=== PATIENT | female | born 1935 | race Caucasian/White ===

== ENCOUNTER 2016-12-03 10:36 | Emergency (ER) | payer MEDICARE, OTHER ==
[~2016-12-03] VITALS: Ht 154.9 cm; Wt 96.5 kg
[~2016-12-03 10:36] MED LIST: CART120C2 PO; CARV3.125 PO; COUM10TA PO; CYCL1PAK PO; ISOS40TA4 PO; LISI-363 PO; MAGN400T PO; NEUR300C PO; NYST100024 TOP; OMPR20CCR PO; ST JTAB PO; TRAZ100 PO; ZOLO50TA PO
[2016-12-03 10:59] VITALS: BP 141/67; PULSE 67; RESP 16; TEMP 97.8; O2SAT 97
[2016-12-03 11:15] VITALS: BP 130/61; PULSE 69; RESP 16; O2SAT 94
--- NOTE | 2016-12-03 11:19 | PD ---
HPI Chief Complaint: Complaint Time Seen by Provider: 11:02 Travel History International Travel<30 days: No Contact w/Intl Traveler<30days: No Traveled to known affect area: No History of Present Illness HPI This patient takes Coumadin for history of A. fib. She noticed blood in her urine 2 days ago. She does have some dysuria. Severity is mild to moderate. She also has some fatigue and low energy state. No fever or syncope. Symptoms have no alleviating factors. PFSH Past Medical History Hx Anticoagulant Therapy: Yes (COUMADIN) Arthritis: Yes (both shoulders and arms, neck) Asthma: Yes Anxiety: Yes Depression: Yes Heart Rhythm Problems: Yes (hx AFib) Cardiovascular Problems: Yes (HTN, A-FIB) High Cholesterol: Yes Chemotherapy: No Chest Pain: No Congestive Heart Failure: No COPD: Yes Cerebrovascular Accident: Yes (CVA 2014) Diabetes: No Diminished Hearing: No Endocrine: Yes Gastrointestinal Disorders: Yes (chronic pancreatitis) GERD: Yes Genitourinary: No Hiatal Hernia: No Hypertension: Yes Immune Disorder: No Implanted Vascular Access Dvce: Yes Insomnia: Yes Musculoskeletal: Yes (BACK PROBLMES) Neurologic: Yes Psychiatric: Yes Reproductive: No Respiratory: Yes (COPD) Immunizations Current: Yes Pancreatitis: Yes Radiation Therapy: No Sleep Apnea: Yes (has machine but doesn't use because of freq urination) Thyroid Disease: No Ulcer: No Menopausal: Yes : 5 Para: 4 Miscarriage: 1 Past Surgical History Abdominal Surgery: Yes (callie & appe 25yrs ago) Appendectomy: Yes Cardiac Surgery: Yes (cardiac cath, LOOP RECORDER PLACED AND REMOVED) Cholecystectomy: Yes Genitourinary Surgery: Yes (BLADDER LIFT) Gynecologic Surgery: Yes (hysterectomy) Hysterectomy: Yes Joint Replacement: Yes (BILATERAL KNEES ) Neurologic Surgery: No Thoracic Surgery: No Other Surgery: Yes (JESSICA LYMPHNODES REMOVED FROM JESSICA AXILLA AREA) Social History Alcohol Use: No Tobacco Use: No (QUIT 1956) Substance Use: No Allergies-Medications (Allergen,Severity, Reaction): Coded Allergies: Flu Vaccine (Verified Allergy, Severe, 12/03/16) Adhesives (Verified Allergy, Intermediate, RASH, 12/03/16) Erythromycin (Verified Allergy, Intermediate, Rash, 12/03/16) Penicillin (Verified Allergy, Intermediate, 12/03/16) Sulfa (Verified Allergy, Intermediate, Rash, 12/03/16) *MDRO Multi-Drug Resistant Organism (Verified Adverse Reaction, Unknown, ) MRSA (abdominal wound) - 12/12/2015 Reported Meds & Prescriptions Reported Meds & Active Scripts Active Reported Warfarin 6 Mg Tab 6 Mg PO DAILY Trazodone (Trazodone HCl) 50 Mg Tab 50 Mg PO HS PRN Sertraline (Sertraline HCl) 100 Mg Tab 100 Mg PO DAILY Omeprazole 40 Mg Cap 40 Mg PO BID Magnesium 400 Mg Tab 400 Mg PO DAILY Lisinopril 20 Mg Tab 20 Mg PO DAILY Isosorbide Dinitrate 20 Mg Tab 20 Mg PO Q8HR Gabapentin 300 Mg Cap 300 Mg PO HS Diltiazem ER 12 HR (Diltiazem HCl) 120 Mg Caper 120 Mg PO BID Flexeril (Cyclobenzaprine HCl) 5 Mg Tab 5 Mg PO TID PRN Carvedilol 3.125 Mg Tab 3.125 Mg PO BID Aspirin 81 Mg Chew 81 Mg CHEW DAILY Review of Systems General / Constitutional: No: Fever Eyes: No: Visual changes HENT: No: Headaches Cardiovascular: No: Chest Pain or Discomfort Respiratory: No: Shortness of Breath Gastrointestinal: No: Abdominal Pain Genitourinary: Positive: Dysuria, Hematuria Musculoskeletal: No: Pain Skin: No Rash Neurologic: No: Weakness Psychiatric: No: Depression Endocrine: No: Polydipsia Hematologic/Lymphatic: No: Easy Bruising Physical Exam Narrative GENERAL: Well-nourished, well-developed patient in no apparent distress. SKIN: Warm and dry. HEAD: Atraumatic. Normocephalic. EYES: Pupils equal and round. No scleral icterus. No injection or drainage. ENT: No nasal bleeding or discharge. Mucous membranes pink and moist. NECK: Trachea midline. No JVD. CARDIOVASCULAR: Regular rate and rhythm. No murmur appreciated. RESPIRATORY: No accessory muscle use. Clear to auscultation. Breath sounds equal bilaterally. GASTROINTESTINAL: Abdomen soft, non-tender, nondistended. Hepatic and splenic margins not palpable. MUSCULOSKELETAL: No obvious deformities. No clubbing. No cyanosis. No edema. NEUROLOGICAL: Awake and alert. No obvious cranial nerve deficits. Motor grossly within normal limits. Normal speech. PSYCHIATRIC: Appropriate mood and affect; insight and judgment normal. Data Data Last Documented VS Vital Signs Date Time Temp Pulse Resp B/P Pulse Ox O2 Delivery O2 Flow Rate FiO2 12/03/16 11:15 69 16 130/61 94 Room Air 12/03/16 10:59 97.8 Orders Urinalysis - C+S If Indicated (12/03/16 11:10) Prothrombin Time / Inr (Pt) (12/03/16 11:10) Complete Blood Count With Diff (12/03/16 11:10) Iv Access Insert/Monitor (12/03/16 11:10) Urine Culture (12/03/16 12:40) Labs Laboratory Tests Test 12/03/16 12/03/16 11:20 12:40 White Blood Count 7.0 TH/MM3 Red Blood Count 4.32 MIL/MM3 Hemoglobin 10.9 GM/DL Hematocrit 33.0 % Mean Corpuscular Volume 76.6 FL Mean Corpuscular Hemoglobin 25.3 PG Mean Corpuscular Hemoglobin 33.0 % Concent Red Cell Distribution Width 16.4 % Platelet Count 178 TH/MM3 Mean Platelet Volume 6.7 FL Neutrophils (%) (Auto) 70.5 % Lymphocytes (%) (Auto) 18.8 % Monocytes (%) (Auto) 6.6 % Eosinophils (%) (Auto) 3.5 % Basophils (%) (Auto) 0.6 % Neutrophils # (Auto) 5.0 TH/MM3 Lymphocytes # (Auto) 1.3 TH/MM3 Monocytes # (Auto) 0.5 TH/MM3 Eosinophils # (Auto) 0.2 TH/MM3 Basophils # (Auto) 0.0 TH/MM3 CBC Comment DIFF FINAL Differential Comment Prothrombin Time 12.4 SEC Prothromb Time International 1.1 RATIO Ratio Urine Color YELLOW Urine Turbidity CLOUDY Urine pH 6.5 Urine Specific [place] 1.021 Urine Protein 30 mg/dL Urine Glucose (UA) NEG mg/dL Urine Ketones NEG mg/dL Urine Occult Blood MOD Urine Nitrite NEG Urine Bilirubin NEG Urine Urobilinogen LESS THAN 2.0 MG/DL Urine Leukocyte Esterase LARGE Urine RBC 66 /hpf Urine WBC /hpf Urine WBC Clumps MANY Urine Squamous Epithelial 1 /hpf Cells Urine Bacteria OCC /hpf Urine Yeast (Budding) Microscopic Urinalysis Comment CULTURE INDICATED MDM Medical Decision Making Medical Screen Exam Complete: Yes Emergency Medical Condition: Yes Medical Record Reviewed: Yes Differential Diagnosis Supratherapeutic INR, hematoma, UTI Narrative Course I have reviewed the patient's electronic medical record IV placed CBC shows minimal anemia INR on Coumadin is 1.1 Urinalysis shows innumerable white cells with only 66 red cells Presentation consistent with urinary tract infection. Cipro prescribed. Should follow-up with primary care to discuss subtherapeutic Coumadin levels Diagnosis Primary Impression: Urinary tract infection Qualified Code: N30.01 - Acute cystitis with hematuria Additional Impressions: History of atrial fibrillation Anticoagulated on Coumadin Additional Instructions: The patient was advised to follow up with their physician and return if they worsen. Med/Other Pt SpecificInfo: Prescription(s) given Scripts Ciprofloxacin (Cipro)500 Mg Xlm149 Mg PO BID #10 TAB Ref 0 Prov:John Bee MD 12/03/16 Disposition: 01 DISCHARGE HOME Condition: Stable John Bee MD Dec 03, 2016 11:18
[2016-12-03] MEDS ORDERED: LISI-515 PO (11:21)
[2016-12-03] MEDS ORDERED: SERT-129 PO (11:21)
[2016-12-03] MEDS ORDERED: OMEP40CA2 PO (11:21)
[2016-12-03] MEDS ORDERED: ISOS20TA2 PO (11:21)
[2016-12-03] MEDS ORDERED: CARV3.12 PO (11:21)
[2016-12-03] MEDS ORDERED: MAGN1TAB14 PO (11:21)
[2016-12-03] MEDS ORDERED: GABA300C5 PO (11:21)
[2016-12-03] MEDS ORDERED: WARF-60 PO (11:21)
[2016-12-03] MEDS ORDERED: DILT120C9 PO (11:21)
[2016-12-03] MEDS ORDERED: ASPI81CH CHEW (11:21)
[2016-12-03] MEDS ORDERED: TRAZ50TA12 PO (11:21)
[2016-12-03] MEDS ORDERED: CYCL5TAB PO (11:21)
[2016-12-03 11:47] LABS: BASOPHIL % 0.6 % (0.0-2.0); EOSINOPHIL # 0.2 TH/MM3 (0-0.4); EOSINOPHIL % 3.5 % (0.0-4.0); HEMO FLAGS DIFF FINAL; LYMPH % 18.8 % (9.0-44.0); LYMPHOCYTE # 1.3 TH/MM3 (1.0-4.8); MEAN CELL VOLUME 76.6 FL (80.0-100.0); MEAN CORPUSCULAR HEMOGLOBIN 25.3 PG (27.0-34.0); MONO % 6.6 % (0.0-8.0); NEUT % 70.5 % (16.0-70.0); PLATELET COUNT 178 TH/MM3 (150-450); RED BLOOD COUNT 4.32 MIL/MM3 (4.00-5.30); RED CELL DISTRIBUTION WIDTH 16.4 % (11.6-17.2)
[2016-12-03 11:59] LABS: INTERNATIONAL NORMALIZED RATIO 1.1 RATIO; PROTHROMBIN TIME - PATIENT 12.4 SEC (9.8-11.6)
[2016-12-03 12:00] VITALS: BP 140/71; PULSE 60; RESP 23; O2SAT 95
[2016-12-03 13:00] VITALS: BP 159/74; PULSE 64; RESP 22; O2SAT 95
[2016-12-03 13:19] LABS: BACTERIA, URINE OCC /hpf; BLOOD, URINE MOD (NEG); COMMENT (UR) CULTURE INDICATED; CULTURE IF INDICATED CULTURE INDICATED; GLUCOSE,URINE NEG (NEG); KETONE, URINE NEG (NEG); NITRITE,URINE NEG (NEG); PH, URINE 6.5 (5.0-8.5); SQUAMOUS EPITHELIAL CELL URINE 1 /hpf (0-5); URINE COLOR YELLOW (YELLW/STRAW)
[2016-12-03] MEDS ORDERED: CIPR-9 PO (14:01)
== END 2016-12-03 16:03 | disposition home or self-care (01) ==
LOC: NEPC 10:36
DX: N39.0 Urinary tract infection, site not specified (principal); B96.4 Proteus (mirabilis) (morganii) as the cause of diseases classified elsewhere; R31.9 Hematuria, unspecified; I48.91 Unspecified atrial fibrillation; Z79.01 Long term (current) use of anticoagulants; E78.00 Pure hypercholesterolemia, unspecified; J44.9 Chronic obstructive pulmonary disease, unspecified; I10 Essential (primary) hypertension
CPT/HCPCS: 81001; 85025; 85610; 87077; 87086; 87186; 99283

== ENCOUNTER 2017-02-18 13:42 | Emergency (ER) | payer MEDICARE, OTHER ==
[~2017-02-18] VITALS: Ht 152.4 cm; Wt 97.0 kg
[~2017-02-18 13:42] MED LIST changes: +ASPI81CH CHEW; -CART120C2 PO; +CARV3.12 PO; -CARV3.125 PO; +CIPR-9 PO; -COUM10TA PO; -CYCL1PAK PO; +CYCL5TAB PO; +DILT120C9 PO; +GABA300C5 PO; +ISOS20TA2 PO; -ISOS40TA4 PO; -LISI-363 PO; +LISI-515 PO; +MAGN1TAB14 PO; -MAGN400T PO; -NEUR300C PO; -NYST100024 TOP; +OMEP40CA2 PO; -OMPR20CCR PO; +SERT-129 PO; -ST JTAB PO; -TRAZ100 PO; +TRAZ50TA12 PO; +WARF-60 PO; -ZOLO50TA PO
[2017-02-18 13:48] VITALS: BP 154/95; PULSE 120; RESP 17; TEMP 99.1; O2SAT 95
[2017-02-18] MEDS ORDERED: SODIUM CHLORIDE 0.9% FLUSH 10 ML FLUSH IV FLUSH PRN (14:30)
--- NOTE | 2017-02-18 14:33 | PD ---
HPI Chief Complaint: Abdominal Pain Time Seen by Provider: 14:21 Travel History International Travel<30 days: No Contact w/Intl Traveler<30days: No Traveled to known affect area: No History of Present Illness HPI This patient complains of pain in her left side. Duration 2 days. Severity is moderate pain essentially in the left lower quadrant and left flank. Denies fever or diarrhea or urinary complaints. She did have episodes of vomiting this morning. No alleviating factors. She's had an appendectomy and cholecystectomy PFSH Past Medical History Hx Anticoagulant Therapy: Yes (COUMADIN) Arthritis: Yes (both shoulders and arms, neck) Asthma: Yes Anxiety: Yes Depression: Yes Heart Rhythm Problems: Yes (hx AFib) Cardiovascular Problems: Yes (HTN, A-FIB) High Cholesterol: Yes Chemotherapy: No Chest Pain: No Congestive Heart Failure: No COPD: Yes Cerebrovascular Accident: Yes (CVA 2014) Diabetes: No Diminished Hearing: No Endocrine: Yes Gastrointestinal Disorders: Yes (chronic pancreatitis) GERD: Yes Genitourinary: No Hiatal Hernia: No Hypertension: Yes Immune Disorder: No Implanted Vascular Access Dvce: Yes Insomnia: Yes Musculoskeletal: Yes (BACK PROBLMES) Neurologic: Yes Psychiatric: Yes Reproductive: No Respiratory: Yes (COPD) Immunizations Current: Yes Pancreatitis: Yes Radiation Therapy: No Sleep Apnea: Yes (has machine but doesn't use because of freq urination) Thyroid Disease: No Ulcer: No Tetanus Vaccination: < 5 Years Influenza Vaccination: No ?: Not Menopausal: Yes : 5 Para: 4 Miscarriage: 1 Past Surgical History Abdominal Surgery: Yes (callie & appe 25yrs ago) Appendectomy: Yes Cardiac Surgery: Yes (cardiac cath, LOOP RECORDER PLACED AND REMOVED) Cholecystectomy: Yes Genitourinary Surgery: Yes (BLADDER LIFT) Gynecologic Surgery: Yes (hysterectomy) Hysterectomy: Yes Joint Replacement: Yes (BILATERAL KNEES ) Neurologic Surgery: No Thoracic Surgery: No Other Surgery: Yes (JESSICA LYMPHNODES REMOVED FROM JESSICA AXILLA AREA) Social History Alcohol Use: No Tobacco Use: No Substance Use: No Allergies-Medications (Allergen,Severity, Reaction): Coded Allergies: Flu Vaccine (Verified Allergy, Severe, 02/18/17) Adhesives (Verified Allergy, Intermediate, RASH, 02/18/17) Erythromycin (Verified Allergy, Intermediate, Rash, 02/18/17) Flagyl (Verified Allergy, Intermediate, RASH, 02/18/17) Penicillin (Verified Allergy, Intermediate, 02/18/17) Sulfa (Verified Allergy, Intermediate, Rash, 02/18/17) *MDRO Multi-Drug Resistant Organism (Verified Adverse Reaction, Unknown, ) MRSA (abdominal wound) - 12/12/2015 Reported Meds & Prescriptions Reported Meds & Active Scripts Active Zofran (Ondansetron HCl) 4 Mg Tab 4 Mg PO Q6HR PRN Percocet (Oxycodone-Acetaminophen) 5-325 mg Tab 1 Tab PO Q6H PRN Reported Warfarin 6 Mg Tab 7 Mg PO DAILY Trazodone (Trazodone HCl) 50 Mg Tab 50 Mg PO HS PRN Sertraline (Sertraline HCl) 100 Mg Tab 100 Mg PO DAILY Omeprazole 40 Mg Cap 40 Mg PO DAILY Magnesium 400 Mg Tab 400 Mg PO DIRECTED Take Tuesday, Tuesday, and Tuesday. Lisinopril 20 Mg Tab 20 Mg PO DAILY Isosorbide Dinitrate 20 Mg Tab 20 Mg PO Q8HR Gabapentin 300 Mg Cap 300 Mg PO HS Diltiazem ER 12 HR (Diltiazem HCl) 120 Mg Caper 240 Mg PO BID Flexeril (Cyclobenzaprine HCl) 5 Mg Tab 5 Mg PO BID Carvedilol 3.125 Mg Tab 3.125 Mg PO BID Aspirin 81 Mg Chew 81 Mg CHEW DAILY Review of Systems General / Constitutional: No: Fever Eyes: No: Visual changes HENT: No: Headaches Cardiovascular: No: Chest Pain or Discomfort Respiratory: No: Shortness of Breath Gastrointestinal: Positive: Nausea, Vomiting, Abdominal Pain Genitourinary: Positive: Flank Pain, No: Dysuria Musculoskeletal: No: Pain Skin: No Rash Neurologic: No: Weakness Psychiatric: No: Depression Endocrine: No: Polydipsia Hematologic/Lymphatic: No: Easy Bruising Physical Exam Narrative GENERAL: Well-nourished, well-developed patient in no apparent distress. SKIN: Warm and dry. HEAD: Atraumatic. Normocephalic. EYES: Pupils equal and round. No scleral icterus. No injection or drainage. ENT: No nasal bleeding or discharge. Mucous membranes pink and moist. NECK: Trachea midline. No JVD. CARDIOVASCULAR: Regular rate and rhythm. No murmur appreciated. RESPIRATORY: No accessory muscle use. Clear to auscultation. Breath sounds equal bilaterally. GASTROINTESTINAL: Abdomen soft, mild left lower quadrant tenderness, nondistended. Hepatic and splenic margins not palpable. MUSCULOSKELETAL: No obvious deformities. No clubbing. No cyanosis. No edema. NEUROLOGICAL: Awake and alert. No obvious cranial nerve deficits. Motor grossly within normal limits. Normal speech. PSYCHIATRIC: Appropriate mood and affect; insight and judgment normal. Data Data Last Documented VS Vital Signs Date Time Temp Pulse Resp B/P Pulse Ox O2 Delivery O2 Flow Rate FiO2 02/18/17 13:48 99.1 120 17 154/95 95 Orders Basic Metabolic Panel (Bmp) (02/18/17 14:28) Complete Blood Count With Diff (02/18/17 14:28) Urinalysis - C+S If Indicated (02/18/17 14:28) Ct Abd/Pel W/O Iv Contrast (02/18/17 14:28) Iv Access Insert/Monitor (02/18/17 14:28) NPO (02/18/17 14:28) Sodium Chloride 0.9% Flush (Ns Flush) (02/18/17 14:30) Cath For Specimen (02/18/17 15:42) Urine Culture (02/18/17 15:50) Labs Laboratory Tests Test 02/18/17 02/18/17 14:40 15:50 White Blood Count 13.3 TH/MM3 Red Blood Count 4.55 MIL/MM3 Hemoglobin 10.9 GM/DL Hematocrit 33.6 % Mean Corpuscular Volume 73.8 FL Mean Corpuscular Hemoglobin 23.9 PG Mean Corpuscular Hemoglobin 32.3 % Concent Red Cell Distribution Width 15.1 % Platelet Count 155 TH/MM3 Mean Platelet Volume 6.1 FL Neutrophils (%) (Auto) 93.7 % Lymphocytes (%) (Auto) 2.1 % Monocytes (%) (Auto) 2.6 % Eosinophils (%) (Auto) 0.2 % Basophils (%) (Auto) 1.4 % Neutrophils # (Auto) 12.5 TH/MM3 Lymphocytes # (Auto) 0.3 TH/MM3 Monocytes # (Auto) 0.3 TH/MM3 Eosinophils # (Auto) 0.0 TH/MM3 Basophils # (Auto) 0.2 TH/MM3 CBC Comment AUTO DIFF Differential Comment AUTO DIFF CONFIRMED Sodium Level 138 MEQ/L Potassium Level 3.9 MEQ/L Chloride Level 99 MEQ/L Carbon Dioxide Level 27.1 MEQ/L Anion Gap 12 MEQ/L Blood Urea Nitrogen 20 MG/DL Creatinine 1.10 MG/DL Estimat Glomerular Filtration 48 ML/MIN Rate Random Glucose 217 MG/DL Calcium Level 8.5 MG/DL Urine Collection Type CATH Urine Color YELLOW Urine Turbidity CLOUDY Urine pH 7.5 Urine Specific [place] 1.020 Urine Protein 30 mg/dL Urine Glucose (UA) NEG mg/dL Urine Ketones NEG mg/dL Urine Occult Blood SMALL Urine Nitrite POS Urine Bilirubin NEG Urine Leukocyte Esterase LARGE Urine RBC 0-3 /hpf Urine WBC 25-49 /hpf Urine WBC Clumps OCC Urine Bacteria OCC /hpf Microscopic Urinalysis Comment CULTURE INDICATED MDM Medical Decision Making Medical Screen Exam Complete: Yes Emergency Medical Condition: Yes Medical Record Reviewed: Yes Differential Diagnosis Kidney stone, pyelonephritis, colitis Narrative Course I have reviewed the patient's electronic medical record. Patient was here November 2016 with UTI which was Proteus sensitive to cephalosporin IV placed CBC shows minor leukocytosis of 13,000 Metabolic profile shows creatinine without significant elevation Urinalysis shows minimal pyuria and will be cultured CT of abdomen and pelvis shows numerous large stones on both sides of the urologic system. However there is an 8 mm left ureteral stone with mild hydronephrosis proximal to it suggesting is the cause of her discomfort I recheck she is minimally symptomatic. She has not needed any pain medication. She does have a urologist Dr. James who she follows closely with. Gave her dose of Cipro here as well as prescriptions for Cipro and pain medicine and nausea medicine She looks stable for outpatient follow-up Daughter will call the urologist office Tuesday morning for follow-up but she can return if she worsens Diagnosis Primary Impression: Kidney stone on left side Additional Impression: Pyuria Additional Instructions: The patient was advised to follow up with their physician and return if they worsen. The patient was warned about potential sedation for the medications they will receive on prescription. Med/Other Pt SpecificInfo: Prescription(s) given Scripts Ciprofloxacin (Cipro)250 Mg Alj970 Mg PO BID #14 TAB Ref 0 Prov:John Bee MD 02/18/17 Ondansetron (Zofran)4 Mg Tab4 Mg PO Q6HR PRN (NAUSEA OR VOMITING) #12 TAB Ref 0 Prov:John Bee MD 02/18/17 Oxycodone-Acetaminophen (Percocet)5-325 mg Tab1 Tab PO Q6H PRN (PAIN) #25 TAB Ref 0 Prov:John Bee MD 02/18/17 Disposition: 01 DISCHARGE HOME Condition: Stable John Bee MD Feb 18, 2017 14:32
[2017-02-18 14:48] LABS: AUTOMATED NEUTROPHIL # 12.5 TH/MM3 (1.8-7.7); BASOPHIL # 0.2 TH/MM3 (0-0.2); BASOPHIL % 1.4 % (0.0-2.0); EOSINOPHIL % 0.2 % (0.0-4.0); HEMATOCRIT 33.6 % (35.0-46.0); LYMPH % 2.1 % (9.0-44.0); LYMPHOCYTE # 0.3 TH/MM3 (1.0-4.8); MEAN CELL VOLUME 73.8 FL (80.0-100.0); MEAN CORPUSCULAR HEMOGLOBIN 23.9 PG (27.0-34.0); MEAN CORPUSCULAR HGB CONC 32.3 % (32.0-36.0); MONO % 2.6 % (0.0-8.0); NEUT % 93.7 % (16.0-70.0); PLATELET COUNT 155 TH/MM3 (150-450); RED BLOOD COUNT 4.55 MIL/MM3 (4.00-5.30); RED CELL DISTRIBUTION WIDTH 15.1 % (11.6-17.2); WHITE BLOOD COUNT 13.3 TH/MM3 (4.0-11.0)
[2017-02-18 14:58] LABS: POTASSIUM 3.9 MEQ/L (3.5-5.1)
[2017-02-18 15:01] LABS: BICARBONATE 27.1 MEQ/L (21.0-32.0)
[2017-02-18 15:33] LABS: HEMO FLAGS AUTO DIFF
--- NOTE | 2017-02-18 15:45 | RADHPO ---
EXAM DATE/TIME: 02/18/2017 15:03 [facility] COMPARISON: No previous studies available for comparison. INDICATIONS : Left flank pain. Vomiting. ORAL CONTRAST: No oral contrast ingested. RADIATION DOSE: 27.86 CTDIvol (mGy) MEDICAL HISTORY : Chronic obstructive pulmonary disease. Cerebrovascular disease. Hypertension. SURGICAL HISTORY : Appendectomy. Cholecystectomy. ENCOUNTER: Initial ACUITY: 2 days PAIN SCALE: 7/10 LOCATION: Left flank TECHNIQUE: Volumetric scanning of the abdomen and pelvis was performed. Using automated exposure control and ad justment of the mA and/or kV according to patient size, radiation dose was kept as low as reasonably achievable to obtain optimal diagnostic quality images. FINDINGS: LOWER LUNGS: The visualized lower lungs are clear. LIVER: Homogeneous density without lesion. There is no dilation of the biliary tree. Gallbladder surgically absent.. SPLEEN: Normal size without lesion. PANCREAS: Within normal limits. KIDNEYS: Her bilateral kidney stones identified including a 2.3 cm oblong stone in the posterior midpole colle cting system of the right kidney and several calculi in the left kidney including a 16 mm stone in th e central radius pelvis, a 2.3 cm calculus in the lower pole collecting system and a 7-8 mm calculus at the ureteropelvic junction. There is mild hydronephrosis and mild perinephric fatty tissue strandi ng indicating some degree of obstruction from this bladder stone. The remaining ureter is nondilated. ADRENAL GLANDS: Within normal limits. VASCULAR: There is no aortic aneurysm. BOWEL/MESENTERY: The stomach, small bowel, and colon demonstrate no acute abnormality. There is no free intraperitone al air or fluid. ABDOMINAL WALL: Within normal limits. RETROPERITONEUM: There is no lymphadenopathy. BLADDER: No wall thickening or mass. REPRODUCTIVE: Uterus is surgically absent. No evidence of pelvic mass or free fluid. INGUINAL: There is no lymphadenopathy or hernia. MUSCULOSKELETAL: Within normal limits for patient age. CONCLUSION: Multiple kidney stones including an 8 mm stone at the left ureteropelvic junction producing mild hydr onephrosis. See above discussion. Gray Marroquin MD on February 18, 2017 at 15:24 Board Certified Radiologist. This report was verified electronically.
[2017-02-18 15:58] LABS: SCAN/DIFF AUTO DIFF CONFIRMED
[2017-02-18] MEDS ORDERED: ZOFR4TAB PO (16:17)
[2017-02-18] MEDS ORDERED: PERC5TAB12 PO (16:17)
[2017-02-18 16:20] LABS: BLOOD, URINE SMALL (NEG); GLUCOSE,URINE NEG (NEG); KETONE, URINE NEG (NEG); PH, URINE 7.5 (5.0-8.5)
[2017-02-18 16:23] LABS: METHOD OF COLLECTION CATH; NITRITE,URINE POS (NEG); URINE COLOR YELLOW (YELLW/STRAW)
[2017-02-18 16:26] LABS: BACTERIA, URINE OCC /hpf; COMMENT (UR) CULTURE INDICATED; CULTURE IF INDICATED CULTURE INDICATED; RBC, URINE 0-3 /hpf (0-3)
[2017-02-18] MEDS ORDERED: CIPR250T52 PO (16:39)
[2017-02-18] MEDS ORDERED: CIPROFLOXACIN 750 MG TAB PO ONE (16:45)
[2017-02-18 17:20] VITALS: BP 177/77; PULSE 118; RESP 18; O2SAT 95
== END 2017-02-18 17:25 | disposition home or self-care (01) ==
LOC: PHED 13:42
DX: N20.0 Calculus of kidney (principal); N39.0 Urinary tract infection, site not specified; B96.4 Proteus (mirabilis) (morganii) as the cause of diseases classified elsewhere; I48.91 Unspecified atrial fibrillation; I10 Essential (primary) hypertension; Z79.01 Long term (current) use of anticoagulants
CPT/HCPCS: 74176; 80048; 81001; 85025; 87077; 87086; 87186; 99284; P9612

== ENCOUNTER 2017-02-18 20:07 | Inpatient (IN) | payer MEDICARE, OTHER ==
[~2017-02-18] VITALS: Ht 172.7 cm; Wt 101.8 kg
[~2017-02-18 20:07] MED LIST changes: +CIPR250T52 PO; +PERC5TAB12 PO; +ZOFR4TAB PO
[2017-02-18 20:23] VITALS: BP 158/79; PULSE 120; RESP 18; TEMP 99.3; O2SAT 95
[2017-02-18] MEDS ORDERED: SODIUM CHLORIDE 0.9% FLUSH 10 ML FLUSH IVF PRN ×2 (20:30→23:00)
[2017-02-18 20:34] VITALS: RESP 18; O2SAT 92
--- NOTE | 2017-02-18 20:35 | PD ---
HPI Chief Complaint: Altered Mental Status Time Seen by Provider: 20:31 Travel History International Travel<30 days: No Contact w/Intl Traveler<30days: No Traveled to known affect area: No History of Present Illness HPI 81-year-old female presents to the emergency department by EMS transport for evaluation of altered mental status. Patient reportedly was seen earlier in the day for complaint of flank pain was identified to have bilateral kidney stones with white blood cells noted on urinalysis. Patient reportedly was discharged from [facility] emergency department with prescription for Cipro, Zofran, and Percocet. Patient did receive a dose of antibiotic prior to being discharged but no narcotic medications are pain medications were administered. No report of recent febrile illness. Patient here complains of headache. Patient does take Coumadin for history of atrial fibrillation and also prior history of CVA. Patient has difficulty providing history and answers primarily questions with simple yes no response. PFSH Past Medical History Narrative Medical Coumadin therapy atrial fibrillation dyslipidemia COPD CVA arthritis anxiety depression GERD pancreatitis sleep apnea kidney stones: Cholecystectomy, appendectomy, loop recorder insertion/removal, cardiac catheterization, with peak surgery, hysterectomy; no tobacco use no alcohol use; nursing notes reviewed Hx Anticoagulant Therapy: Yes Arthritis: Yes (both shoulders and arms, neck) Asthma: Yes Anxiety: Yes Depression: Yes Heart Rhythm Problems: Yes (hx AFib) Cardiovascular Problems: Yes High Cholesterol: Yes Chemotherapy: No Chest Pain: No Congestive Heart Failure: No COPD: Yes Cerebrovascular Accident: Yes Diabetes: No Diminished Hearing: No Endocrine: Yes Gastrointestinal Disorders: Yes (chronic pancreatitis) GERD: Yes Genitourinary: No Hiatal Hernia: No Hypertension: Yes Immune Disorder: No Implanted Vascular Access Dvce: Yes Insomnia: Yes Musculoskeletal: Yes (BACK PROBLMES) Neurologic: Yes Psychiatric: Yes Reproductive: No Respiratory: Yes (COPD) Immunizations Current: Yes Pancreatitis: Yes Radiation Therapy: No Sleep Apnea: Yes (has machine but doesn't use because of freq urination) Thyroid Disease: No Ulcer: No ?: Not Menopausal: Yes : 5 Para: 4 Miscarriage: 1 Past Surgical History Abdominal Surgery: Yes (callie & appe 25yrs ago) Appendectomy: Yes Cardiac Surgery: Yes (cardiac cath, LOOP RECORDER PLACED AND REMOVED) Cholecystectomy: Yes Genitourinary Surgery: Yes (BLADDER LIFT) Gynecologic Surgery: Yes (hysterectomy) Hysterectomy: Yes Joint Replacement: Yes (BILATERAL KNEES ) Neurologic Surgery: No Thoracic Surgery: No Other Surgery: Yes (JESSICA LYMPHNODES REMOVED FROM JESSICA AXILLA AREA) Social History Alcohol Use: No Tobacco Use: No Substance Use: No Allergies-Medications (Allergen,Severity, Reaction): Coded Allergies: Flu Vaccine (Verified Allergy, Severe, 02/18/17) Adhesives (Verified Allergy, Intermediate, RASH, 02/18/17) Erythromycin (Verified Allergy, Intermediate, Rash, 02/18/17) Flagyl (Verified Allergy, Intermediate, RASH, 02/18/17) Penicillin (Verified Allergy, Intermediate, 02/18/17) Sulfa (Verified Allergy, Intermediate, Rash, 02/18/17) *MDRO Multi-Drug Resistant Organism (Verified Adverse Reaction, Unknown, ) 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 Lisinopril 20 Mg Tab 20 Mg PO DAILY Isosorbide Dinitrate 20 Mg Tab 20 Mg PO Q8HR Gabapentin 300 Mg Cap 300 Mg PO HS Diltiazem ER 12 HR (Diltiazem HCl) 120 Mg Caper 240 Mg PO BID Flexeril (Cyclobenzaprine HCl) 5 Mg Tab 5 Mg PO BID Carvedilol 3.125 Mg Tab 3.125 Mg PO BID Aspirin 81 Mg Chew 81 Mg CHEW DAILY Review of Systems ROS Limitations: Clinical Condition, Poor Historian Except as stated in HPI: all other systems reviewed are Neg Physical Exam Narrative GENERAL: Elderly female in no acute distress no respiratory distress some slurring of speech SKIN: Warm and dry. HEAD: Atraumatic. Normocephalic. EYES: Pupils equal and round. No scleral icterus. No injection or drainage. ENT: No nasal bleeding or discharge. Mucous membranes pink and moist. NECK: Trachea midline. No JVD. CARDIOVASCULAR: Regular rate and rhythm. RESPIRATORY: No accessory muscle use. Clear to auscultation. Breath sounds equal bilaterally. GASTROINTESTINAL: Abdomen soft, non-tender, nondistended. Hepatic and splenic margins not palpable. MUSCULOSKELETAL: Extremities without clubbing, cyanosis, or edema. No obvious deformities. NEUROLOGICAL: Awake and alert. No obvious cranial nerve deficits. Motor grossly within normal limits. Five out of 5 muscle strength in the arms and legs. Normal speech. PSYCHIATRIC: Appropriate mood and affect; insight and judgment normal. Data Data Last Documented VS Vital Signs Date Time Temp Pulse Resp B/P Pulse Ox O2 Delivery O2 Flow Rate FiO2 02/18/17 22:56 95 Nasal Cannula 2.00 02/18/17 21:41 115 16 114/58 02/18/17 20:23 99.3 Orders Electrocardiogram (02/18/17 20:29) Ammonia (02/18/17 20:29) Complete Blood Count With Diff (02/18/17 20:29) Comprehensive Metabolic Panel (02/18/17 20:29) Creatine Kinase (Cpk) (02/18/17 20:29) Prothrombin Time / Inr (Pt) (02/18/17 20:29) Troponin I (02/18/17 20:29) Thyroid Stimulating Hormone (02/18/17 20:29) Urinalysis - C+S If Indicated (02/18/17 20:29) Blood Culture (02/18/17 20:29) Chest, Single Ap (02/18/17 20:29) Ct Brain W/O Iv Contrast(Rout) (02/18/17 20:29) Blood Glucose (02/18/17 20:29) Ecg Monitoring (02/18/17 20:29) Iv Access Insert/Monitor (02/18/17 20:29) Oximetry (02/18/17 20:29) Sodium Chloride 0.9% Flush (Ns Flush) (02/18/17 20:30) Lactic Acid Sepsis Protocol (02/18/17 20:29) Magnesium (Mg) (02/18/17 20:29) B-Type Natriuretic Peptide (02/18/17 20:29) Aztreonam Inj (Azactam Inj) (02/18/17 22:30) Aztreonam Inj (Azactam Inj) (02/19/17 05:00) Eeg Study (02/18/17 ) Potassium Chloride (Kcl) (02/18/17 23:00) Consult Neurology (02/18/17 ) ^ Seizure Precautions (02/18/17 22:49) Lorazepam Inj (Ativan Inj) (02/18/17 23:00) Admit To Inpatient (02/18/17 ) Vital Signs (Adult) Q4H (02/18/17 22:50) Neuro Checks Q4H (02/18/17 22:50) Activity Bed Rest (02/18/17 22:50) Bedside Glucose NIKOLAY.AC&HS (02/18/17 22:50) Planing Machine Operator / Telemetry .CONTINUOUS (02/18/17 22:50) Intake + Output NIKOLAY.QSHIFT (02/18/17 22:50) Diet Npo (02/19/17 Breakfast) Sodium Chlor 0.9% 1000 Ml Inj (Ns 1000 M (02/18/17 22:50) Sodium Chloride 0.9% Flush (Ns Flush) (02/18/17 23:00) Sodium Chloride 0.9% Flush (Ns Flush) (02/19/17 09:00) Acetaminophen (Tylenol) (02/18/17 23:00) Ondansetron Inj (Zofran Inj) (02/18/17 23:00) Docusate Sodium (Colace) (02/18/17 23:00) Sennosides (Senokot) (02/18/17 23:00) Complete Blood Count With Diff (02/19/17 06:00) Resp Oxygen Efe C Titrat 1-4 L (02/18/17 ) Pt Request For Service (02/18/17 22:50) Case Management Consult (02/18/17 22:50) Scd Bilateral/Knee High NIKOLAY.BID (02/18/17 22:50) Acetaminophen (Tylenol) (02/18/17 23:00) Acetamin-Hydrocod 325-5 Mg ([place] 5-325 (02/18/17 23:00) Acetamin-Hydrocod 325-7.5 Mg ([place] 7.5 (02/18/17 23:00) Morphine Inj (Morphine Inj) (02/18/17 23:00) Naloxone Inj (Narcan Inj) (02/18/17 23:00) Inpatient Certification (02/18/17 ) Nursing Bedside Swallow Assess .ONCE (02/18/17 22:50) Swallow Eval W/ St (02/18/17 22:50) Sodium Chlor 0.9% 1000 Ml Inj (Ns 1000 M (02/18/17 22:45) Admit Order (Ed Use Only) (02/18/17 ) ^ Saline Lock (02/18/17 22:54) Resp Oxygen Efe C Titrat 1-4 L (02/18/17 ) ^ Notify Dr: Other (02/18/17 22:54) Sodium Chloride 0.9% Flush (Ns Flush) (02/19/17 09:00) Sodium Chloride 0.9% Flush (Ns Flush) (02/18/17 23:00) ^ Other Nursing Orders (02/18/17 22:53) Hydralazine Inj (Apresoline Inj) (02/18/17 23:00) Clonidine (Catapres) (02/18/17 23:00) Prothrombin Time / Inr (Pt) (02/19/17 06:00) Warfarin Consult Pharmacy (Coumadin Cons (02/18/17 23:00) Warfarin (Coumadin) Pt Teach (Coumadin B (02/18/17 23:00) Urine Culture (02/18/17 22:22) Labs Laboratory Tests Test 02/18/17 02/18/17 21:20 22:22 White Blood Count 9.3 TH/MM3 Red Blood Count 4.42 MIL/MM3 Hemoglobin 10.7 GM/DL Hematocrit 32.6 % Mean Corpuscular Volume 73.6 FL Mean Corpuscular Hemoglobin 24.3 PG Mean Corpuscular Hemoglobin 32.9 % Concent Red Cell Distribution Width 16.5 % Platelet Count 117 TH/MM3 Mean Platelet Volume 6.8 FL Neutrophils (%) (Auto) 94.4 % Lymphocytes (%) (Auto) 1.7 % Monocytes (%) (Auto) 3.4 % Eosinophils (%) (Auto) 0.0 % Basophils (%) (Auto) 0.5 % Neutrophils # (Auto) 8.8 TH/MM3 Lymphocytes # (Auto) 0.2 TH/MM3 Monocytes # (Auto) 0.3 TH/MM3 Eosinophils # (Auto) 0.0 TH/MM3 Basophils # (Auto) 0.0 TH/MM3 CBC Comment AUTO DIFF Differential Total Cells 100 Counted Neutrophils % (Manual) 58 % Band Neutrophils % 31 % Lymphocytes % 6 % Monocytes % 4 % Neutrophils # (Manual) 8.4 TH/MM3 Myelocytes 1 % Differential Comment FINAL DIFF MANUAL Platelet Estimate LOW Platelet Morphology Comment NORMAL Prothrombin Time 25.5 SEC Prothromb Time International 2.2 RATIO Ratio Sodium Level 137 MEQ/L Potassium Level 3.1 MEQ/L Chloride Level 99 MEQ/L Carbon Dioxide Level 27.5 MEQ/L Anion Gap 11 MEQ/L Blood Urea Nitrogen 23 MG/DL Creatinine 1.26 MG/DL Estimat Glomerular Filtration 41 ML/MIN Rate Random Glucose 161 MG/DL Lactic Acid Level 3.4 mmol/L Calcium Level 8.8 MG/DL Magnesium Level 1.5 MG/DL Total Bilirubin 1.3 MG/DL Aspartate Amino Transf 18 U/L (AST/SGOT) Alanine Aminotransferase 14 U/L (ALT/SGPT) Alkaline Phosphatase 103 U/L Ammonia 32 MCMOL/L Total Creatine Kinase 65 U/L Troponin I 0.07 NG/ML B-Type Natriuretic Peptide 146 PG/ML Total Protein 6.5 GM/DL Albumin 3.0 GM/DL Thyroid Stimulating Hormone 0.688 uIU/ML 3rd Gen Urine Color LIGHT-RED Urine Turbidity CLOUDY Urine pH 7.0 Urine Specific [place] 1.020 Urine Protein 100 mg/dL Urine Glucose (UA) NEG mg/dL Urine Ketones NEG mg/dL Urine Occult Blood LARGE Urine Nitrite NEG Urine Bilirubin NEG Urine Urobilinogen 2.0 MG/DL Urine Leukocyte Esterase LARGE Urine RBC /hpf Urine WBC /hpf Urine WBC Clumps MANY Urine Bacteria FEW /hpf Urine Mucus FEW /lpf Microscopic Urinalysis Comment CATH-CULTURE IND MDM Medical Decision Making Medical Screen Exam Complete: Yes Emergency Medical Condition: Yes Medical Record Reviewed: Yes Interpretation(s) EKG sinus tachycardia rate [address]-T wave changes without ST segment elevation Last Impressions Head CT 02/18/172028 Signed Impressions: Service Date/Time: Saturday, February 18, 2017 20:49 - CONCLUSION: No acute intracranial findings Gray Marroquin MD Chest X-Ray 02/18/172028 Signed Impressions: Service Date/Time: Saturday, February 18, 2017 20:45 - CONCLUSION: No acute disease Gray Marroquin MD Differential Diagnosis Altered mental status, CVA, ICH, seizure, warfarin coagulopathy, sepsis, UTI, metabolic derangement, adverse medication reaction, ACS, hypoglycemic event Narrative Course Patient placed on cardiac/vascular sonographer found to be in sinus tachycardia rhythm with hypertension oral temperature 99.2F no labored respirations after recent evaluation for kidney stone with left-sided hydronephrosis secondary to 8 mm distal ureteral stone and pyuria. Recently started on Cipro antibiotic. Specimens collected and sent for resulting EKG ordered which reveals sinus tachycardia without acute ST elevation or injury pattern patient will be sent for imaging study. Bedside glucose 160. Review of medical record indicates that last GCS was approximately 2:20 PM this afternoon reportedly a 4:40 PM at time of discharge she was able to understand discharge instructions and reportedly left the emergency department at 5:20 PM with family members noting that she had not taken her daily medication specifically her blood pressure medication and was discharged with hypertension with discussed recommendation to not miss any of her blood pressure medication. No family members or caregivers present with the patient for this visit. At 8:55 PM daughter Janice Vital is at bedside reports that patient was seen earlier in the emergency department today because of left flank pain was identified at that time to have a kidney stone reportedly while in the emergency department the patient noted that she felt off-balance so a urinary catheter was inserted around 4:30 PM since the patient did not have to get out of bed and then after diagnosis was discharged to home patient was mumbling and requiring some assistance because of balance disturbance reportedly according to the daughter she left the hospital. Patient in the car reportedly fell asleep and underwent into the drugstore to vegetable picker her prescription and when she came back from picking up the prescription the patient was very combative and disoriented and fighting with the patient trying to get out of the car. The daughter is able to get the patient home required assistance getting the patient into her house and then noted that the patient was remaining disoriented so called the paramedics to bring her to the emergency department. Unknown if there was any seizure activity. Daughter states she's had episodes of sweating and chills recently for the past few days but has not noticed specifically any fever. Patient is not diabetic. Patient has had stroke in the past. But no prior history of seizure disorder. Patient has now returned from the CT department and mentation is improved. Patient still with some mild expressive aphasia and some slurring of speech which daughter seems to think is improved from what she witnessed at home. (PCP: Dr Figueroa, urology Dr James) At 9:[address] brain noncontrast read by Dr. Marroquin no acute intracranial abnormality noted. Critical Care Narrative Aggregate critical care time was 40 minutes. Time to perform other separately billable procedures was not included in the critical care time. My time did not include minutes spent treating any other patients simultaneously or on activities that did not directly contribute to the patient's treatment. The services I provided to this patient were to treat and/or prevent clinically significant deterioration that could result in: Septic shock, I provided critical care services requiring my management, as noted below: Chart data review, documentation time, medication orders and management, vital sign assessments/reviewing monitor data, ordering and reviewing lab tests, ordering and interpreting/reviewing x-rays and diagnostic studies, care of the patient and discussion of the patient with the admitting physicians. Sepsis Criteria SIRS Criteria (2 or more): Heart rate over 90, WBC > 08174, < 4000 or > 10% bands Severe Sepsis (+one): Lactate >2 Diagnosis Primary Impression: Sepsis Qualified Code: A41.9 - Sepsis, due to unspecified organism Additional Impressions: UTI (urinary tract infection) Qualified Code: N39.0 - Urinary tract infection without hematuria, site unspecified Altered mental state Qualified Code: R41.82 - Altered mental status, unspecified altered mental status type Elevated troponin Hypokalemia Admitting Information Admitting Physician Requests: Admit Uzma Gilman MD Feb 18, 2017 20:35
--- NOTE | 2017-02-18 20:54 | RADRPT ---
EXAM DATE/TIME: 02/18/2017 20:45 [facility] COMPARISON: CHEST SINGLE AP, July 07, 2015, 16:59. INDICATIONS : Dizziness and confusion. MEDICAL HISTORY : None. SURGICAL HISTORY : None. ENCOUNTER: Initial ACUITY: 1 day PAIN SCORE: 0/10 LOCATION: Bilateral chest FINDINGS: A single view of the chest demonstrates the lungs to be symmetrically aerated without evidence of mas s, infiltrate or effusion. The cardiomediastinal contours are unremarkable. Significant degenerative changes in the shoulders.. CONCLUSION: No acute disease Gray Marroquin MD on February 18, 2017 at 20:51 Board Certified Radiologist. This report was verified electronically.
--- NOTE | 2017-02-18 21:08 | RADRPT ---
EXAM DATE/TIME: 02/18/2017 20:49 [facility] COMPARISON: CT BRAIN W/O CONTRAST, April 30, 2016, 12:22. INDICATIONS : Altered mental status and headache. RADIATION DOSE: 37.40 CTDIvol (mGy) MEDICAL HISTORY : Stroke. Hypertension. Cardiovascular disease SURGICAL HISTORY : None. ENCOUNTER: Initial ACUITY: 1 day PAIN SCALE: 3/10 LOCATION: cranial TECHNIQUE: Multiple contiguous axial images were obtained of the head. Using automated exposure control and adj ustment of the mA and/or kV according to patient size, radiation dose was kept as low as reasonably a chievable to obtain optimal diagnostic quality images. FINDINGS: CEREBRUM: The ventricles are normal for age. No evidence of midline shift, mass lesion, hemorrhage or acute in farction. No extra-axial fluid collections are seen. POSTERIOR FOSSA: The cerebellum and brainstem are intact. The 4th ventricle is midline. The cerebellopontine angle i s unremarkable. EXTRACRANIAL: The visualized portion of the orbits is intact. Stable opacification of the left maxillary sinus SKULL: The calvaria is intact. No evidence of skull fracture. CONCLUSION: No acute intracranial findings Gray Marroquin MD on February 18, 2017 at 21:05 Board Certified Radiologist. This report was verified electronically.
[2017-02-18 21:41] VITALS: BP 114/58; PULSE 115; RESP 16; O2SAT 96
[2017-02-18 21:48] LABS: AUTOMATED NEUTROPHIL # 8.8 TH/MM3 (1.8-7.7); BASOPHIL % 0.5 % (0.0-2.0); HEMATOCRIT 32.6 % (35.0-46.0); LYMPH % 1.7 % (9.0-44.0); LYMPHOCYTE # 0.2 TH/MM3 (1.0-4.8); MEAN CELL VOLUME 73.6 FL (80.0-100.0); MEAN CORPUSCULAR HEMOGLOBIN 24.3 PG (27.0-34.0); MEAN CORPUSCULAR HGB CONC 32.9 % (32.0-36.0); MONO % 3.4 % (0.0-8.0); NEUT % 94.4 % (16.0-70.0); PLATELET COUNT 117 TH/MM3 (150-450); RED BLOOD COUNT 4.42 MIL/MM3 (4.00-5.30); RED CELL DISTRIBUTION WIDTH 16.5 % (11.6-17.2); WHITE BLOOD COUNT 9.3 TH/MM3 (4.0-11.0)
[2017-02-18 21:50] LABS: HEMO FLAGS AUTO DIFF
[2017-02-18 21:59] LABS: INTERNATIONAL NORMALIZED RATIO 2.2 RATIO; PROTHROMBIN TIME - PATIENT 25.5 SEC (9.8-11.6)
[2017-02-18 22:02] LABS: ANION GAP 11 MEQ/L (5-15); AST (GOT) 18 U/L (15-37); BICARBONATE 27.5 MEQ/L (21.0-32.0); BLOOD UREA NITROGEN 23 MG/DL (7-18); CHLORIDE 99 MEQ/L (98-107); GLOMERULAR FILTRATION RATE 41 ML/MIN (>89); MAGNESIUM 1.5 MG/DL (1.5-2.5); POTASSIUM 3.1 MEQ/L (3.5-5.1); SODIUM (NA) 137 MEQ/L (136-145)
[2017-02-18 22:13] LABS: ALKALINE PHOSPHATASE 103 U/L (45-117); ALT (GPT) 14 U/L (10-53); TOTAL BILIRUBIN ADULT 1.3 MG/DL (0.2-1.0)
[2017-02-18 22:16] LABS: CREATINE KINASE 65 U/L (26-192)
[2017-02-18] MEDS ORDERED: AZTREONAM INJ 2,000 MG in SODIUM CHLORIDE 0.9% INJ 100 ML IV ONE (22:30)
[2017-02-18 22:39] LABS: BANDS 31 % (0-6); MYELOCYTES 1 % (0-0); NEUTROPHIL # MANUAL DIFF 8.4 TH/MM3 (1.8-7.7); POLYS (SEG NEUTROPHILS) 58 % (16-70); WBC DIFF SAMPLE 100
[2017-02-18 22:40] LABS: PLATELET ESTIMATE SMEAR LOW (NORMAL); PLATELET MORPHOLOGY NORMAL (NORMAL); SCAN/DIFF FINAL DIFF MANUAL
[2017-02-18] MEDS ORDERED: SODIUM CHLOR 0.9% 1000 ML INJ 1,000 ML IV SCH (22:45)
[2017-02-18 22:55] LABS: BACTERIA, URINE FEW /hpf; BLOOD, URINE LARGE (NEG); GLUCOSE,URINE NEG (NEG); KETONE, URINE NEG (NEG); MUCUS URINE FEW /lpf (OCC); NITRITE,URINE NEG (NEG)
[2017-02-18 22:56] VITALS: O2SAT 95
[2017-02-18 22:56] LABS: COMMENT (UR) CATH-CULTURE IND; CULTURE IF INDICATED CATH CULTURE IND; URINE COLOR LIGHT-RED (YELLW/STRAW)
[2017-02-18] MEDS ORDERED: NALOXONE HCL 0.4 MG/ML AMP IV PRN (23:00)
[2017-02-18] MEDS ORDERED: MORPHINE SULFATE 4 MG/ML INJ IV PRN (23:00)
[2017-02-18] MEDS ORDERED: cloNIDine HCL 0.1 MG TAB PO PRN (23:00)
[2017-02-18] MEDS ORDERED: GENTAMICIN INJ 80 MG in SODIUM CHLORIDE 0.9% INJ 100 ML IV ONE (23:00)
[2017-02-18] MEDS ORDERED: POTASSIUM CHLORIDE 10 MEQ CONTROLLED RELEASE TAB PO ONE (23:00)
[2017-02-18] MEDS ORDERED: ACETAMINOPHEN 325 MG TAB PO PRN ×2 (23:00)
[2017-02-18] MEDS ORDERED: SENNOSIDES 8.6 MG TAB PO PRN (23:00)
[2017-02-18] MEDS ORDERED: LORazepam 2 MG/ML VIAL IV PUSH PRN (23:00)
[2017-02-18] MEDS ORDERED: ACETAMINOPHEN/HYDROcodone 325 MG/5 MG TAB PO PRN (23:00)
[2017-02-18] MEDS ORDERED: SODIUM CHLORIDE 0.9% FLUSH 10 ML FLUSH IV FLUSH PRN (23:00)
[2017-02-18] MEDS ORDERED: ONDANSETRON HCL 4 MG/2 ML VIAL IVP PRN (23:00)
[2017-02-18] MEDS ORDERED: hydrALAZINE HCL 20 MG/ML VIAL IV PRN (23:00)
[2017-02-18] MEDS ORDERED: traZODone HCL 50 MG TAB PO PRN (23:00)
[2017-02-18 23:30] LABS: LACTIC ACID GHOST NOT REPORTABLE
--- NOTE | 2017-02-18 23:32 | HHI.HP ---
[facility] Primary Care Physician Art Figueroa MD Admission Diagnosis ams, sepsis,uti, elevated troponin I, hypokalemia Diagnoses: (1) Encephalopathy Diagnosis: Principal (2) Kidney stone on left side Diagnosis: Principal (3) UTI (urinary tract infection) Diagnosis: Principal (4) Severe sepsis Diagnosis: Principal (5) Hypokalemia Diagnosis: Principal (6) Acute kidney injury Diagnosis: Principal Chief Complaint: confused and combative Travel History International Travel<30 Days: No Contact w/Intl Traveler <30 Da: No Traveled to Known Affected Are: No Sepsis Criteria SIRS Criteria (2 or more): Heart rate over 90, WBC > 80412, < 4000 or > 10% bands Sepsis Criteria (SIRS+source): Infect source susp/known Severe Sepsis (+one): Lactate >2 Criteria Outcome: Meets SIRS criteria, Meets sepsis criteria, Meets severe sepsis criteria History of Present Illness This is a 81-year-old female with history of Arthritis, asthma, anxiety, depression, atrial fibrillation, hyperlipidemia, COPD, CVA, chronic pancreatitis , gastroesophageal reflux disease, hypertension, and obstructive sleep apnea not on CPAP. She presented to the emergency room after being brought by EMS for altered mental status including combative behaviors and severe agitation along with confusion. Patient was seen in the [place] emergency department earlier in the day and diagnosed with bilateral nephrolithiasis and UTI and was discharged with prescriptions for ciprofloxacin, Zofran, and Percocet. The patient's daughter went to the pharmacy to fill the medications and when she came back to the car the patient was very combative and confused. She also noted slurred speech. At this time, according to her daughter patient's confusion has resolved with improving slurred speech. She is oriented to person and place but not to time. Patient complained of today history of constant left flank pain associated with nausea, decreased urine output with dark urine color and chills. She has been seen by Dr. James for hematuria. She also reports of mild frontal headache without visual change, numbness and focal weakness Review of Systems Constitutional: COMPLAINS OF: Chills, DENIES: Diaphoretic episodes, Fatigue, Fever, Weight gain, Weight loss, Dizziness, Change in appetite, Night Sweats Endocrine: DENIES: Heat/cold intolerance, Polydipsia, Polyuria, Polyphagia Eyes: DENIES: Blurred vision, Diplopia, Vision loss, Photosensitivity Ears, nose, mouth, throat: DENIES: Tinnitus, Vertigo, Throat pain, Hoarseness, Epistaxis, Odynophagia Respiratory: DENIES: Cough, Wheezing, Hemoptysis, Sputum production, Shortness of breath Cardiovascular: DENIES: Chest pain, Palpitations, Syncope, Dyspnea on Exertion , PND, Lower Extremity Edema, Orthopnea, Claudication Gastrointestinal: COMPLAINS OF: Nausea, DENIES: Abdominal pain, Black stools, Bloody stools, Constipation, Diarrhea, Vomiting, Difficulty Swallowing, Anorexia Genitourinary: DENIES: Urinary frequency, Urinary incontinence, Urgency, Hematuria, Dysuria, Nocturia, Vaginal discharge Musculoskeletal: COMPLAINS OF: Back pain Integumentary: DENIES: Rash Neurologic: DENIES: Headache, Localized weakness, Seizures, Tremor, Poor Balance Psychiatric: COMPLAINS OF: Confusion, DENIES: Anxiety, Depression, Hallucinations, Agitation, Suicidal Ideation, Homicidal Ideation, Delusions Except as stated in HPI: all other systems reviewed are Neg Past Family Social History Past Medical History As previously mentioned Past Surgical History Cholecystectomy, appendectomy, Lipitor record her insertion and removal, cardiac catheterization, hysterectomy Reported Medications Ciprofloxacin, Zofran, Percocet, Coumadin, trazodone, sertraline, magnesium, lisinopril, isosorbide dinitrate, gabapentin, diltiazem, Flexeril, Coreg and aspirin Allergies: Coded Allergies: Flu Vaccine (Verified Allergy, Severe, 02/18/17) Adhesives (Verified Allergy, Intermediate, RASH, 02/18/17) Erythromycin (Verified Allergy, Intermediate, Rash, 02/18/17) Flagyl (Verified Allergy, Intermediate, RASH, 02/18/17) Penicillin (Verified Allergy, Intermediate, 02/18/17) Sulfa (Verified Allergy, Intermediate, Rash, 02/18/17) *MDRO Multi-Drug Resistant Organism (Verified Adverse Reaction, Unknown, ) MRSA (abdominal wound) - 12/12/2015 Family History Heart disease Mother following childbirth Social History Tobacco: denied Alcohol: denied . Physical Exam Vital Signs Vital Signs Date Time Temp Pulse Resp B/P Pulse Ox O2 Delivery O2 Flow Rate FiO2 02/18/17 22:56 95 Nasal Cannula 2.00 02/18/17 21:41 115 16 114/58 96 Nasal Cannula 2 02/18/17 20:34 18 92 Room Air 02/18/17 20:23 99.3 120 18 158/79 95 Physical Exam GENERAL: Well-developed, obese in no distress SKIN: Warm and dry. HEAD: Atraumatic. Normocephalic. EYES: Pupils equal and round. No scleral icterus. No injection or drainage. ENT: No nasal bleeding or discharge. Mucous membranes pink and moist. NECK: Trachea midline. No JVD. CARDIOVASCULAR: Regular rate and rhythm. RESPIRATORY: No accessory muscle use. Clear to auscultation. Breath sounds equal bilaterally. GASTROINTESTINAL: Abdomen soft, non-tender, nondistended. No CVA tenderness but has small area of bruising on the right flank MUSCULOSKELETAL: Extremities without clubbing, cyanosis, or edema. No obvious deformities. NEUROLOGICAL: Appears lethargic but easily arousable answering questions appropriately oriented to person and place. No obvious cranial nerve deficits. Motor grossly within normal limits. She has generalized weakness with slurred speech PSYCHIATRIC: Appropriate mood and affect; insight and judgment normal. Laboratory Laboratory Tests Test 02/18/17 02/18/17 21:20 22:22 White Blood Count 9.3 Red Blood Count 4.42 Hemoglobin 10.7 Hematocrit 32.6 Mean Corpuscular Volume 73.6 Mean Corpuscular Hemoglobin 24.3 Mean Corpuscular Hemoglobin 32.9 Concent Red Cell Distribution Width 16.5 Platelet Count 117 Mean Platelet Volume 6.8 Neutrophils (%) (Auto) 94.4 Lymphocytes (%) (Auto) 1.7 Monocytes (%) (Auto) 3.4 Eosinophils (%) (Auto) 0.0 Basophils (%) (Auto) 0.5 Neutrophils # (Auto) 8.8 Lymphocytes # (Auto) 0.2 Monocytes # (Auto) 0.3 Eosinophils # (Auto) 0.0 Basophils # (Auto) 0.0 CBC Comment AUTO DIFF Differential Total Cells 100 Counted Neutrophils % (Manual) 58 Band Neutrophils % 31 Lymphocytes % 6 Monocytes % 4 Neutrophils # (Manual) 8.4 Myelocytes 1 Differential Comment FINAL DIFF MANUAL Platelet Estimate LOW Platelet Morphology Comment NORMAL Prothrombin Time 25.5 Prothromb Time International 2.2 Ratio Sodium Level 137 Potassium Level 3.1 Chloride Level 99 Carbon Dioxide Level 27.5 Anion Gap 11 Blood Urea Nitrogen 23 Creatinine 1.26 Estimat Glomerular Filtration 41 Rate Random Glucose 161 Lactic Acid Level 3.4 Calcium Level 8.8 Magnesium Level 1.5 Total Bilirubin 1.3 Aspartate Amino Transf 18 (AST/SGOT) Alanine Aminotransferase 14 (ALT/SGPT) Alkaline Phosphatase 103 Ammonia 32 Total Creatine Kinase 65 Troponin I 0.07 B-Type Natriuretic Peptide 146 Total Protein 6.5 Albumin 3.0 Thyroid Stimulating Hormone 0.688 3rd Gen Urine Color LIGHT-RED Urine Turbidity CLOUDY Urine pH 7.0 Urine Specific [place] 1.020 Urine Protein 100 Urine Glucose (UA) NEG Urine Ketones NEG Urine Occult Blood LARGE Urine Nitrite NEG Urine Bilirubin NEG Urine Urobilinogen 2.0 Urine Leukocyte Esterase LARGE Urine RBC Urine WBC Urine WBC Clumps MANY Urine Bacteria FEW Urine Mucus FEW Microscopic Urinalysis Comment CATH-CULTURE IND Date/Time Procedure Status Source Growth 02/18/17 22:22 Urine Culture Received Urine Catheterized Urine Pending 02/18/17 21:25 Aerobic Blood Culture Received Blood Peripheral Pending 02/18/17 21:25 Anaerobic Blood Culture Received Blood Peripheral Pending Result Diagram: 02/18/17211902/18/172119 Imaging EKG tracing interpreted by me with sinus tachycardia, Q waves in 2 and aVF and nonspecific ST changes no significant change from previous except for rate Chest x-ray image interpreted by me with no acute cardiopulmonary disease Last Impressions Brain MRI 02/18/176 Signed Impressions: Service Date/Time: Saturday, February 18, 2017 23:24 - CONCLUSION: Normal examination. Kingsley Yoder Jr., MD Head CT 02/18/172028 Signed Impressions: Service Date/Time: Saturday, February 18, 2017 20:49 - CONCLUSION: No acute intracranial findings Gray Marroquin MD Chest X-Ray 02/18/172028 Signed Impressions: Service Date/Time: Saturday, February 18, 2017 20:45 - CONCLUSION: No acute disease Gray Marroquin MD Assessment and Plan Problem List: (1) Encephalopathy ICD Code: G93.40 Status: Acute Assessment and Plan This is a 81-year-old female with history of Arthritis, asthma, anxiety, depression, atrial fibrillation, hyperlipidemia, COPD, CVA, chronic pancreatitis , gastroesophageal reflux disease, hypertension, and obstructive sleep apnea not on CPAP. She presented to the emergency room after being brought by EMS for altered mental status including combative behaviors and severe agitation along with confusion. Patient was seen in the [place] emergency department earlier in the day and diagnosed with bilateral nephrolithiasis and UTI and was discharged with prescriptions for ciprofloxacin, Zofran, and Percocet. The patient's daughter went to the pharmacy to fill the medications and when she came back to the car the patient was very combative and confused. She also noted slurred speech. At this time, according to her daughter patient's confusion has resolved with improving slurred speech. She is oriented to person and place but not to time. Patient complained of today history of constant left flank pain associated with nausea, decreased urine output with dark urine color and chills. She has been seen by Dr. James for hematuria. She also reports of mild frontal headache without visual change, numbness and focal weakness Encephalopathy - TIA/CVA vs seizure vs infection-related delirium. Patient history of CVA and A. fib on Coumadin with therapeutic INR - check MRI as is unremarkable - EEG - Neurology consultation - seizure precautions - ativan 1 mg IV q6h PRN seizures - diet NPO until bedside swallowing evaluation done UTI. Previous urine culture grew Proteus resistant to Cipro. She is allergic to penicillin, Flagyl, erythromycin and so far. Patient received aztreonam and will continue. Follow-up urine culture Severe sepsis with tachycardia and leukocytosis and lactic acid of 3.4. Continue IV hydration and repeat lactic acid per protocol Acute kidney injury with bilateral nephrolithiasis, left ureteropelvic 8 mm stone losing mild hydronephrosis. -Consult Dr. James - urology - patient has outpatient appointment with -NS at 100 cc/hr -Velasquez catheter for strict I/O - Avoid nephrotoxins Chronic medical conditions of Arthritis, asthma/COPD, anxiety, depression, atrial fibrillation, hyperlipidemia, COPD, CVA, chronic pancreatitis, gastroesophageal reflux disease, hypertension, and obstructive sleep apnea not on CPAP. Continue outpatient medications as appropriate Written by Michelle Colbert, acting as scribe for Dr. Barba on 02/18/17 at 23:50. All or portions of this note were transcribed by scribhadley Colbert. I, Dr. Chucho Barba personally performed the history, physical exam, and medical decision making; and confirmed the accuracy of the information in the transcribed note. Authenticated by Dr. Chucho Barba on 02/19/17 at 01:11. Code Status FULL CODE . Discussed Condition With ER physician, daughter, patient, and RN . Physician Certification 2 Midnight Certification Type: Admission for Inpatient Services Order for Inpatient Services The services are ordered in accordance with Medicare regulations or non- Medicare payer requirements, as applicable. In the case of services not specified as inpatient-only, they are appropriately provided as inpatient services in accordance with the 2-midnight benchmark. Estimated LOS (days): 2 days is the estimated time the patient will need to remain in the hospital, assuming treatment plan goals are met and no additional complications. Post-Hospital Plan: Not yet determined Problem Qualifiers (1) UTI (urinary tract infection): Qualified Code: N39.0 - Urinary tract infection without hematuria, site unspecified Michelle Colbert Feb 18, 2017 23:32 Chucho Barba MD Feb 19, 2017 01:12
[2017-02-19] VITALS (12 sets, daily range): BP systolic 119–143; BP diastolic 60–89; PULSE 79–107; RESP 16–40; TEMP 98.4–99.5; O2SAT 97–99
--- NOTE | 2017-02-19 00:26 | RADRPT ---
EXAM DATE/TIME: 02/18/2017 23:24 [facility] COMPARISON: MRI BRAIN W/O CONTRAST, March 05, 2015, 17:24. INDICATIONS : Altered mental status. MEDICAL HISTORY : Pancreatitis. SURGICAL HISTORY : Appendectomy. Cholecystectomy. Carpal tunnel syndrome. Rotator cuff. Bi-lateral knee. ENCOUNTER: Subsequent ACUITY: 1 day PAIN SCORE: 0/10 LOCATION: cranial TECHNIQUE: Multiplanar, multisequence MRI of the brain was performed without contrast. FINDINGS: CEREBRUM: The ventricles are normal for age. No evidence of midline shift, mass lesion, hemorrhage or acute in farction. No extraaxial fluid collections are seen. The pituitary gland and suprasellar cistern are normal in configuration. WHITE MATTER: No significant signal abnormalities are seen in the white matter. POSTERIOR FOSSA: The cerebellum and brainstem are intact. The 4th ventricle is midline. The cerebellopontine angle is unremarkable. The cerebellar tonsils are normal in position. DIFFUSION IMAGING: No focal areas of restricted diffusion are seen. No evidence of acute infarction. EXTRACRANIAL: The visualized portions of the orbits and paranasal sinuses are unremarkable. CONCLUSION: Normal examination. Kingsley Yoder Jr., MD on February 19, 2017 at 0:23 Board Certified Radiologist. This report was verified electronically.
[2017-02-19] MEDS: DILTIAZEM-CD 240 MG CAP ER PO SCH ×3 (00:27→20:22)
[2017-02-19] MEDS: DOCUSATE SODIUM 100 MG CAP PO SCH ×2 (00:28→11:00)
[2017-02-19] MEDS: SODIUM CHLOR 0.9% 1000 ML INJ 1,000 ML IV SCH ×3 (00:28→18:28)
[2017-02-19] MEDS: AZTREONAM INJ 2,000 MG in SODIUM CHLORIDE 0.9% INJ 100 ML IV SCH ×3 (04:54→20:21)
[2017-02-19 06:01] LABS: BASOPHIL % 0.1 % (0.0-2.0); HEMATOCRIT 30.8 % (35.0-46.0); LYMPH % 2.2 % (9.0-44.0); LYMPHOCYTE # 0.3 TH/MM3 (1.0-4.8); MEAN CELL VOLUME 74.6 FL (80.0-100.0); MEAN CORPUSCULAR HEMOGLOBIN 23.6 PG (27.0-34.0); MEAN CORPUSCULAR HGB CONC 31.6 % (32.0-36.0); MONO % 2.9 % (0.0-8.0); NEUT % 94.8 % (16.0-70.0); PLATELET COUNT 111 TH/MM3 (150-450); RED BLOOD COUNT 4.13 MIL/MM3 (4.00-5.30); WHITE BLOOD COUNT 11.6 TH/MM3 (4.0-11.0)
[2017-02-19 06:05] LABS: HEMO FLAGS AUTO DIFF
[2017-02-19 06:10] LABS: INTERNATIONAL NORMALIZED RATIO 2.1 RATIO
[2017-02-19 06:24] LABS: BICARBONATE 27.2 MEQ/L (21.0-32.0); POTASSIUM 3.7 MEQ/L (3.5-5.1)
[2017-02-19 08:44] LABS: BANDS 43 % (0-6); METAMYELOCYTES 1 % (0-1); NEUTROPHIL # MANUAL DIFF 11.3 TH/MM3 (1.8-7.7); PLATELET ESTIMATE SMEAR LOW (NORMAL); PLATELET MORPHOLOGY NORMAL (NORMAL); POLYS (SEG NEUTROPHILS) 53 % (16-70); SCAN/DIFF FINAL DIFF MANUAL; WBC DIFF SAMPLE 100
[2017-02-19] MEDS: SODIUM CHLORIDE 0.9% FLUSH 10 ML FLUSH IV FLUSH SCH ×4 (09:00→20:22)
[2017-02-19] MEDS: CARVEDILOL 3.125 MG TAB PO SCH ×2 (09:42→20:22)
[2017-02-19] MEDS: ASPIRIN 81 MG CHEW TAB CHEW SCH (09:42)
--- NOTE | 2017-02-19 09:50 | PD.CONS ---
[facility] Service Urology Consult Requested By Primary Care Physician Art Figueroa MD Diagnosis: (1) Encephalopathy ICD Code: G93.40 (2) Kidney stone on left side ICD Code: N20.0 (3) UTI (urinary tract infection) ICD Code: N39.0 (4) Severe sepsis ICD Code: A41.9 (5) Hypokalemia ICD Code: E87.6 (6) Acute kidney injury ICD Code: N17.9 History of Present Illness 81 y.o female admitted with confusion and mental status changes. She was initially seen in the [place] ER with complaints of left-sided flank pain with some nausea. CT scan of the emergency room showed left renal calculi with a 7 mm proximal UPJ stone with mild to moderate hydronephrosis. She was then discharged, and then shortly thereafter, return to the emergency room with changes in her mental status. She does note a history of stones in the past. Presently she is resting comfortably in the ICU and she is alert and oriented. Review of Systems Constitutional: DENIES: Diaphoretic episodes Eyes: DENIES: Blurred vision Ears, nose, mouth, throat: DENIES: Tinnitus Respiratory: DENIES: Apneas Cardiovascular: DENIES: Chest pain Gastrointestinal: DENIES: Abdominal pain Musculoskeletal: DENIES: Joint pain Integumentary: DENIES: Abnormal pigmentation Hematologic/lymphatic: DENIES: Bruising Immunologic/allergic: DENIES: Eczema Neurologic: DENIES: Abnormal gait Past Family Social History Past Medical History After fibrillation, COPD, asthma, arthritis, anxiety, depression, hypertension, GERD, hyperlipidemia, pancreatitis, obstructive sleep apnea Past Surgical History Cholecystectomy, appendectomy, hysterectomy, cardiac catheterization Allergies: Coded Allergies: Flu Vaccine (Verified Allergy, Severe, 02/18/17) Adhesives (Verified Allergy, Intermediate, RASH, 02/18/17) Erythromycin (Verified Allergy, Intermediate, Rash, 02/18/17) Flagyl (Verified Allergy, Intermediate, RASH, 02/18/17) Penicillin (Verified Allergy, Intermediate, 02/18/17) Sulfa (Verified Allergy, Intermediate, Rash, 02/18/17) *MDRO Multi-Drug Resistant Organism (Verified Adverse Reaction, Unknown, ) MRSA (abdominal wound) - 12/12/2015 Family History Coronary disease Social History Denies smoking or drinking. Physical Exam Vital Signs Date Time Temp Pulse Resp B/P Pulse Ox O2 Delivery O2 Flow Rate FiO2 02/19/17 08:46 97 Nasal Cannula 2.00 02/19/17 05:00 91 16 131/60 97 Nasal Cannula 2 02/19/17 01:00 107 16 128/62 97 Nasal Cannula 2 02/18/17 22:56 95 Nasal Cannula 2.00 02/18/17 21:41 115 16 114/58 96 Nasal Cannula 2 02/18/17 20:34 18 92 Room Air 02/18/17 20:23 99.3 120 18 158/79 95 Physical Exam GENERAL: This is a well-nourished, well-developed patient, in no apparent distress. SKIN: No rashes, ecchymoses or lesions. Cool and dry. HEAD: Atraumatic. Normocephalic. No temporal or scalp tenderness. EYES: Pupils equal round and reactive. Extraocular motions intact. No scleral icterus. No injection or drainage. ENT: Nose without bleeding, purulent drainage or septal hematoma. Throat without erythema, tonsillar hypertrophy or exudate. Uvula midline. Airway patent. NECK: Trachea midline. No JVD or lymphadenopathy. Supple, nontender, no meningeal signs. CARDIOVASCULAR: Regular rate and rhythm without murmurs, gallops, or rubs. RESPIRATORY: Clear to auscultation. Breath sounds equal bilaterally. No wheezes , rales, or rhonchi. GASTROINTESTINAL: Abdomen soft, non-tender, nondistended. No hepato-splenomegaly , or palpable masses. No guarding. Mild left CVA tenderness GENITOURINARY: Normal female external genitalia, Velasquez catheter in place MUSCULOSKELETAL: Extremities without clubbing, cyanosis, or edema. No joint tenderness, effusion, or edema noted. No calf tenderness. Negative Homans sign bilaterally. NEUROLOGICAL: Awake and alert. Motor and sensory grossly within normal limits. Normal speech. Laboratory Tests Test 02/18/17 02/18/17 02/19/17 02/19/17 21:20 22:22 00:12 05:00 White Blood Count 9.3 11.6 Red Blood Count 4.42 4.13 Hemoglobin 10.7 9.7 Hematocrit 32.6 30.8 Mean Corpuscular Volume 73.6 74.6 Mean Corpuscular Hemoglobin 24.3 23.6 Mean Corpuscular Hemoglobin 32.9 31.6 Concent Red Cell Distribution Width 16.5 16.0 Platelet Count 117 111 Mean Platelet Volume 6.8 7.2 Neutrophils (%) (Auto) 94.4 94.8 Lymphocytes (%) (Auto) 1.7 2.2 Monocytes (%) (Auto) 3.4 2.9 Eosinophils (%) (Auto) 0.0 0.0 Basophils (%) (Auto) 0.5 0.1 Neutrophils # (Auto) 8.8 11.0 Lymphocytes # (Auto) 0.2 0.3 Monocytes # (Auto) 0.3 0.3 Eosinophils # (Auto) 0.0 0.0 Basophils # (Auto) 0.0 0.0 CBC Comment AUTO DIFF AUTO DIFF Differential Total Cells 100 100 Counted Neutrophils % (Manual) 58 53 Band Neutrophils % 31 43 Lymphocytes % 6 Monocytes % 4 3 Neutrophils # (Manual) 8.4 11.3 Myelocytes 1 Differential Comment FINAL DIFF FINAL DIFF MANUAL MANUAL Platelet Estimate LOW LOW Platelet Morphology Comment NORMAL NORMAL Prothrombin Time 25.5 24.0 Prothromb Time International 2.2 2.1 Ratio Sodium Level 137 139 Potassium Level 3.1 3.7 Chloride Level 99 103 Carbon Dioxide Level 27.5 27.2 Anion Gap 11 9 Blood Urea Nitrogen 23 29 Creatinine 1.26 1.06 Estimat Glomerular Filtration 41 50 Rate Random Glucose 161 167 Lactic Acid Level 3.4 2.1 Calcium Level 8.8 8.7 Magnesium Level 1.5 Total Bilirubin 1.3 Aspartate Amino Transf 18 (AST/SGOT) Alanine Aminotransferase 14 (ALT/SGPT) Alkaline Phosphatase 103 Ammonia 32 Total Creatine Kinase 65 119 Troponin I 0.07 B-Type Natriuretic Peptide 146 Total Protein 6.5 Albumin 3.0 Thyroid Stimulating Hormone 0.688 3rd Gen Urine Color LIGHT-RED Urine Turbidity CLOUDY Urine pH 7.0 Urine Specific [place] 1.020 Urine Protein 100 Urine Glucose (UA) NEG Urine Ketones NEG Urine Occult Blood LARGE Urine Nitrite NEG Urine Bilirubin NEG Urine Urobilinogen 2.0 Urine Leukocyte Esterase LARGE Urine RBC Urine WBC Urine WBC Clumps MANY Urine Bacteria FEW Urine Mucus FEW Microscopic Urinalysis Comment CATH-CULTURE IND Metamyelocytes 1 Date/Time Procedure Status Source Growth 02/18/17 22:22 Urine Culture Received Urine Catheterized Urine Pending 02/18/17 21:25 Aerobic Blood Culture Received Blood Peripheral Pending 02/18/17 21:25 Anaerobic Blood Culture Received Blood Peripheral Pending Result Diagram: 02/19/17 0500 02/19/17 0500 Imaging Last Impressions Brain MRI 02/18/17 2336 Signed Impressions: Service Date/Time: Saturday, February 18, 2017 23:24 - CONCLUSION: Normal examination. Kingsley Yoder Jr., MD Head CT 02/18/172028 Signed Impressions: Service Date/Time: Saturday, February 18, 2017 20:49 - CONCLUSION: No acute intracranial findings Gray Marroquin MD Chest X-Ray 02/18/172028 Signed Impressions: Service Date/Time: Saturday, February 18, 2017 20:45 - CONCLUSION: No acute disease Gray Marroquin MD Assessment and Plan Assessment and Plan 81-year-old female with nephrolithiasis and 7 mm left UPJ stone causing mild to moderate hydronephrosis. Patient also with confusion on admission and now seems to be back to her baseline at present time. We'll schedule cystoscopy with left double-J stent insertion in the a.m. Nothing by mouth after midnight. Thank you for the consult and for allowing me to precipitate in the care of this patient. Problem Qualifiers (1) UTI (urinary tract infection): Qualified Code: N39.0 - Urinary tract infection without hematuria, site unspecified Fernando Wynn DO Feb 19, 2017 09:50
--- NOTE | 2017-02-19 11:59 | PD.CONS ---
History of Present Illness Service Neurology Consult Requested By medical Reason for Consult confusion Primary Care Physician Art Figueroa MD History of Present Illness 81-year-old female admitted for confusion. Patient was seen in the [place] emergency department yesterday and diagnosed with bilateral nephrolithiasis and UTI and was discharged with prescriptions for ciprofloxacin, Zofran, and Percocet. The patient's daughter went to the pharmacy to fill the medications and when she came back to the car the patient was very combative and confused. She also noted slurred speech. inr 2.2, mri brain nml. no events overnight. feels well this am. denies hernandez, no focal weakness. seen by urology for mild to moderate hydronephrosis. Review of Systems as above/admit hp Past Family Social History Past Medical History Arthritis, asthma, anxiety, depression, atrial fibrillation, hyperlipidemia, COPD, CVA, chronic pancreatitis, gastroesophageal reflux disease, hypertension, obstructive sleep apnea Past Surgical History Cholecystectomy, appendectomy, Lipitor record her insertion and removal, cardiac catheterization, hysterectomy Reported Medications Ciprofloxacin, Zofran, Percocet, Coumadin, trazodone, sertraline, magnesium, lisinopril, isosorbide dinitrate, gabapentin, diltiazem, Flexeril, Coreg and aspirin Allergies: Coded Allergies: Flu Vaccine (Verified Allergy, Severe, 02/18/17) Adhesives (Verified Allergy, Intermediate, RASH, 02/18/17) Erythromycin (Verified Allergy, Intermediate, Rash, 02/18/17) Flagyl (Verified Allergy, Intermediate, RASH, 02/18/17) Penicillin (Verified Allergy, Intermediate, 02/18/17) Sulfa (Verified Allergy, Intermediate, Rash, 02/18/17) *MDRO Multi-Drug Resistant Organism (Verified Adverse Reaction, Unknown, ) MRSA (abdominal wound) - 12/12/2015 Family History Heart disease Social History Tobacco: denied Alcohol: denied . 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 Active Ordered Medications Current Medications Medications (Trade) Dose Ordered Sig/Deana Route Start Time Stop Time Status Last Admin (Azactam Inj/NS Inj) 100 ml @ 200 mls/hr Q8H IV 02/19/17 05:00 02/19/17 04:54 Lorazepam 1 mg 1 mg Q6H PRN IV PUSH 02/18/17 23:00 (NS 1000 ml Inj) 1,000 ml @ 100 mls/hr Q10H IV 02/18/17 22:50 02/19/17 00:28 (NS Flush) 2 ml BID IV FLUSH 02/19/17 09:00 02/19/17 09:00 (Tylenol) 650 mg Q4H PRN PO 02/18/17 23:00 (Zofran Inj) 4 mg Q6H PRN IVP 02/18/17 23:00 (Colace) 100 mg Q12H PO 02/18/17 23:00 02/19/17 00:28 (Senokot) 17.2 mg Q12H PRN PO 02/18/17 23:00 (Tylenol) 650 mg Q6H PRN PO 02/18/17 23:00 ([place] 5-325 Mg) 1 tab Q4H PRN PO 02/18/17 23:00 ([place] 7.5-325 Mg) 1 tab Q4H PRN PO 02/18/17 23:00 (Morphine Inj) 1 mg Q3H PRN IV 02/18/17 23:00 (Narcan Inj) 0.4 mg UNSCH PRN IV 02/18/17 23:00 (NS Flush) 2 ml BID IV FLUSH 02/19/17 09:00 02/19/17 09:00 (NS Flush) 2 ml UNSCH PRN IVF 02/18/17 23:00 (Apresoline Inj) 10 mg Q6H PRN IV 02/18/17 23:00 Clonidine 0.1 mg 0.1 mg Q6H PRN PO 02/18/17 23:00 (Coumadin Consult Pharmacy) 0 ml @ 0 mls/hr UNSCH OTHER 02/18/17 23:00 (Aspirin Chew) 81 mg DAILY CHEW 02/19/17 09:00 02/19/17 09:42 (Coreg) 3.125 mg BID PO 02/19/17 09:00 02/19/17 09:42 (Neurontin) 300 mg HS PO 02/19/17 21:00 (Desyrel) 50 mg HS PRN PO 02/18/17 23:00 (Coumadin) 5 mg DAILY@16 PO 02/19/17 16:00 (Cardizem Cd) 240 mg BID PO 02/18/17 23:15 02/19/17 09:42 (Coumadin) 2 mg DAILY@16 PO 02/19/17 16:00 (Coumadin Booklet) 1 ONCE ONCE XX 02/19/17 16:00 02/19/17 16:01 Exam I&O / VS Vital Signs Date Time Temp Pulse Resp B/P Pulse Ox O2 Delivery O2 Flow Rate FiO2 02/19/17 10:00 84 02/19/17 08:46 97 Nasal Cannula 2.00 02/19/17 08:00 98.6 87 27 126/89 99 02/19/17 05:00 91 16 131/60 97 Nasal Cannula 2 02/19/17 01:00 107 16 128/62 97 Nasal Cannula 2 02/18/17 22:56 95 Nasal Cannula 2.00 02/18/17 21:41 115 16 114/58 96 Nasal Cannula 2 02/18/17 20:34 18 92 Room Air 02/18/17 20:23 99.3 120 18 158/79 95 General: Alert and Oriented, No acute distress Eye: EOMI Respiratory: Non-labored respirations Cardiology: Normal rate Neurologic: Alert, Oriented, Normal sensory, Normal motor, No focal defects, CN II-XII intact, Gag reflex normal, Normal DTR's Psychiatric: Cooperative, Appropriate mood & affect, Normal judgement, Non- suicidal Exam Comments sitting up, ox 3, pleasant, calm, pcp Henry, pres Trump, follows, no aphasia , vff, face sym, no drift Review/Management Diagnosis/Plan: (1) Encephalopathy Plan: resolved possible reaction to abx vs 2/2 pain/hydronephrosis fully alert and oriented this am. mri brain nml. inr therapeutic recs f/u eeg follow exam ok to go to floor with tele from neuro (2) Acute kidney injury (3) Anticoagulated on Coumadin (4) UTI (urinary tract infection) Problem Qualifiers (1) UTI (urinary tract infection): Qualified Code: N39.0 - Urinary tract infection without hematuria, site unspecified Mark Salinas MD Feb 19, 2017 11:59
[2017-02-19] MEDS ORDERED: CHLORHEXIDINE GLUCONATE 2 % 1 PACK (2 CLOTHS)(extra cloths) TOP PRN (15:00)
[2017-02-19] MEDS ORDERED: WARFARIN SOD 5 MG TAB PO SCH (16:00)
[2017-02-19] MEDS ORDERED: WARFARIN SOD 2 MG TAB PO SCH (16:00)
--- NOTE | 2017-02-19 17:28 | EKG ---
Date Performed: 02/18/2017 Time Performed: 20:32:56 PTAGE: 81 years EKG: SINUS TACHYCARDIA NONSPECIFIC ST & T-WAVE ABNORMALITY Compared to previous tracing, ST abno rmalities are new ABNORMAL RHYTHM ECG PREVIOUS TRACING : 01/16/2016 17.26 DOCTOR: Jorge Quigley Interpretating Date/Time 02/19/2017 17:26:47
[2017-02-19] MEDS: GABAPENTIN 300 MG CAP PO SCH (20:22)
[2017-02-19] MEDS ORDERED: FOSPHENYTOIN INJ 1,000 MGPE in SODIUM CHLORIDE 0.9% INJ 50 ML IV ONE (23:15)
--- NOTE | 2017-02-19 23:22 | MG ---
cc: VENKATESH MAYA MD Lab No: [id number] Date: 02/19/17 Age: 81 Sex: F Race: 1935 A 81-year-old history of mental status changes. 3-6 Hz activity, 20-50 microvolts, generalized slowing. Good EEG variability reactivity. Left temporal sharp transient epoch 18 couple more epochs tiny phase reversal T5 epoch 50. Mild left temporal slowing occurring off and on. Limited driving with photic stimulation. Phase reversal at T5 epoch 105 in addition to bilateral mid central sharp transients. Single lead EKG showing sinus rhythm. INTERPRETATION Mild left frontotemporal changes as noted above could be a nidus for epileptic activity. Clinical correlation. Venkatesh Maya MD MG/SA /10:51 PM /11:15 PM [facility]
[2017-02-20] VITALS (17 sets, daily range): BP systolic 111–148; BP diastolic 54–86; PULSE 68–80; RESP 16–25; TEMP 95.9–99.3; O2SAT 96–97
[2017-02-20] MEDS: levETIRAcetam 250 MG TAB PO SCH ×3 (00:19→22:11)
[2017-02-20] MEDS: DOCUSATE SODIUM 100 MG CAP PO SCH ×3 (00:19→23:00)
[2017-02-20] MEDS: CHLORHEXIDINE GLUCONATE 2 % 1 PACK (2 CLOTHS)(taper/protocol) TOP SCH (00:20)
--- NOTE | 2017-02-20 05:11 | HHI.PR ---
Subjective Remarks Late entry. Date of service 02/19/17. Patient seen the morning of 02/19/17. Patient says she is feeling better than on admission. Family at bedside. Altered mental status is improving. She denies any chest pain or shortness of breath. Her left flank pain is improving. She denies any dysuria. Discussed with urology. We'll plan for urologic procedure tomorrow morning. Okay to continue warfarin Objective Vital Signs Date Time Temp Pulse Resp B/P Pulse Ox O2 Delivery O2 Flow Rate FiO2 02/20/17 04:00 99.1 74 19 111/57 96 02/20/17 04:00 74 02/20/17 02:00 74 02/20/17 00:00 80 02/20/17 00:00 99.3 80 25 115/55 97 02/19/17 22:00 79 02/19/17 20:00 87 02/19/17 20:00 99.5 87 20 143/63 97 02/19/17 19:05 97 Nasal Cannula 2.00 02/19/17 18:00 85 02/19/17 16:00 99.1 88 40 119/72 97 02/19/17 16:00 88 02/19/17 14:00 87 02/19/17 12:00 98.4 87 29 129/60 98 02/19/17 12:00 87 02/19/17 10:00 84 02/19/17 08:46 97 Nasal Cannula 2.00 02/19/17 08:00 98.6 87 27 126/89 99 I/O 02/19/17 02/19/17 02/19/17 02/20/17 02/20/17 02/20/17 07:00 15:00 23:00 07:00 15:00 23:00 Intake Total 1755 ml 1509 ml Output Total 1600 ml 600 ml Balance 155 ml 909 ml Intake Oral 400 ml 480 ml IV Total 1355 ml 1029 ml Output Urine Total 1600 ml 600 ml # Bowel Movements 0 0 Result Diagram: 02/19/17 0500 02/19/17 0500 Imaging Last Impressions Brain MRI 02/18/17 8506 Signed Impressions: Service Date/Time: Saturday, February 18, 2017 23:24 - CONCLUSION: Normal examination. Kingsley Yoder Jr., MD Head CT 02/18/172028 Signed Impressions: Service Date/Time: Saturday, February 18, 2017 20:49 - CONCLUSION: No acute intracranial findings Gray Marroquin MD Chest X-Ray 02/18/172028 Signed Impressions: Service Date/Time: Saturday, February 18, 2017 20:45 - CONCLUSION: No acute disease Gray Marroquin MD Objective Remarks GENERAL: patient sitting up in bed. Appears comfortable. Alert and oriented 3. Family at bedside. SKIN: Warm and dry. HEAD: Normocephalic. EYES: No scleral icterus. No injection or drainage. NECK: Supple, trachea midline. No JVD. CARDIOVASCULAR: Regular rate and rhythm without murmurs, gallops, or rubs. RESPIRATORY: Breath sounds equal bilaterally. No accessory muscle use. GASTROINTESTINAL: Abdomen soft, non-tender, nondistended. no rebound or guarding. moderate flank tenderness on the left. MUSCULOSKELETAL: No cyanosis, or edema. BACK: Nontender without obvious deformity. No CVA tenderness. A/P Assessment and Plan This is a 81-year-old female with history of Arthritis, asthma, anxiety, depression, atrial fibrillation, hyperlipidemia, COPD, CVA, chronic pancreatitis , gastroesophageal reflux disease, hypertension, and obstructive sleep apnea not on CPAP. She presented to the emergency room after being brought by EMS for altered mental status including combative behaviors and severe agitation along with confusion. Patient was seen in the [facility] emergency department earlier in the day and diagnosed with bilateral nephrolithiasis and UTI and was discharged with prescriptions for ciprofloxacin, Zofran, and Percocet. The patient's daughter went to the pharmacy to fill the medications and when she came back to the car the patient was very combative and confused. She also noted slurred speech. At this time, according to her daughter patient's confusion has resolved with improving slurred speech. She is oriented to person and place but not to time. Patient complained of today history of constant left flank pain associated with nausea, decreased urine output with dark urine color and chills. She has been seen by Dr. James for hematuria. She also reports of mild frontal headache without visual change, numbness and focal weakness //Metabolic Encephalopathy -Secondary to severe sepsis- TIA/CVA vs seizure vs infection-related delirium. Patient history of CVA and A. fib on Coumadin with therapeutic INR - check MRI as is unremarkable - EEG - Neurology consultation - seizure precautions - ativan 1 mg IV q6h PRN seizures - diet NPO until bedside swallowing evaluation done //UTI. Previous urine culture grew Proteus resistant to Cipro. She is allergic to penicillin, Flagyl, erythromycin and so far. Patient received aztreonam and will continue. -Follow-up urine culture //Severe sepsis with tachycardia and leukocytosis, bandemia, and lactic acid of 3.4. -Lactic acid improving. Continue antibiotics for UTI. Follow-up cultures. //Gram-negative bacteremia. Likely secondary to UTI. -Continue IV antibiotics -Repeat blood culture pending. -Continue to monitor cultures //Acute kidney injury with bilateral nephrolithiasis, left ureteropelvic 8 mm stone losing mild hydronephrosis. -Consult Dr. James - urology - patient has outpatient appointment with -NS at 100 cc/hr -Velasquez catheter for strict I/O - Avoid nephrotoxins -Plan for urology procedure 02/20. Patient stable for procedure. //Chronic medical conditions of Arthritis, asthma/COPD, anxiety, depression, atrial fibrillation, hyperlipidemia, COPD, CVA, chronic pancreatitis, gastroesophageal reflux disease, hypertension, and obstructive sleep apnea not on CPAP. Continue outpatient medications as appropriate //History of atrial fibrillation. //History of hypertension -With relative hypotension on admission secondary to sepsis. -Continue diltiazem. Continue warfarin -Hold nonessential blood pressure medications for now. Restart as necessary. //Prophylaxis. Patient will continue on warfarin. Discharge Planning continues on IV antibiotics for gram-negative bacteremia. -as patient failed outpatient treatment with Cipro, there is a good chance that patient may need IV antibiotics to go home. -Appreciate case management assistance. Myron Orellana MD Feb 20, 2017 05:11
[2017-02-20] MEDS: SODIUM CHLOR 0.9% 1000 ML INJ 1,000 ML IV SCH ×2 (05:13→14:50)
[2017-02-20] MEDS: AZTREONAM INJ 2,000 MG in SODIUM CHLORIDE 0.9% INJ 100 ML IV SCH ×3 (05:14→21:06)
[2017-02-20 06:34] LABS: BICARBONATE 25.1 MEQ/L (21.0-32.0); POTASSIUM 3.6 MEQ/L (3.5-5.1)
[2017-02-20 06:38] LABS: INTERNATIONAL NORMALIZED RATIO 1.7 RATIO; PROTHROMBIN TIME - PATIENT 19.7 SEC (9.8-11.6)
[2017-02-20 07:35] LABS: AUTOMATED NEUTROPHIL # 5.3 TH/MM3 (1.8-7.7); BASOPHIL # 0.1 TH/MM3 (0-0.2); BASOPHIL % 0.9 % (0.0-2.0); EOSINOPHIL # 0.1 TH/MM3 (0-0.4); EOSINOPHIL % 1.2 % (0.0-4.0); HEMATOCRIT 27.4 % (35.0-46.0); LYMPH % 6.3 % (9.0-44.0); LYMPHOCYTE # 0.4 TH/MM3 (1.0-4.8); MEAN CELL VOLUME 74.8 FL (80.0-100.0); MEAN CORPUSCULAR HEMOGLOBIN 23.9 PG (27.0-34.0); MEAN CORPUSCULAR HGB CONC 31.9 % (32.0-36.0); MONO % 5.3 % (0.0-8.0); NEUT % 86.3 % (16.0-70.0); PLATELET COUNT 87 TH/MM3 (150-450); RED BLOOD COUNT 3.66 MIL/MM3 (4.00-5.30); RED CELL DISTRIBUTION WIDTH 16.6 % (11.6-17.2); WHITE BLOOD COUNT 6.1 TH/MM3 (4.0-11.0)
[2017-02-20] MEDS: ASPIRIN 81 MG CHEW TAB CHEW SCH (08:00)
[2017-02-20] MEDS: DILTIAZEM-CD 240 MG CAP ER PO SCH ×2 (08:00→21:10)
[2017-02-20] MEDS: SODIUM CHLORIDE 0.9% FLUSH 10 ML FLUSH IV FLUSH SCH ×4 (08:00→21:00)
[2017-02-20] MEDS: CARVEDILOL 3.125 MG TAB PO SCH ×2 (08:00→21:10)
[2017-02-20 08:29] LABS: HEMO FLAGS AUTO DIFF
--- NOTE | 2017-02-20 09:45 | HHI.PR ---
Review/Management Diagnosis/Plan: (1) Encephalopathy Plan: resolved possible reaction to abx vs 2/2 pain/hydronephrosis fully alert and oriented this am. mri brain nml. inr therapeutic eeg-+left temporal focus for sz- may be 2/2 meds recs given iv cerebryx last night and started on keppra; could be dc'd in future, outpatient once acute problems resolved d/w pt and rn ok to go to floor with tele from neuro (2) Acute kidney injury (3) Anticoagulated on Coumadin Plan: inr 1.7 medical following (4) UTI (urinary tract infection) Subjective Subjective Comments No acute events reported no hx o sz's No headache No chest pain No dyspnea Active Medications Current Medications Medications (Trade) Dose Ordered Sig/Deana Route Start Time Stop Time Status Last Admin (Azactam Inj/NS Inj) 100 ml @ 200 mls/hr Q8H IV 02/19/17 05:00 02/20/17 05:14 Lorazepam 1 mg 1 mg Q6H PRN IV PUSH 02/18/17 23:00 (NS 1000 ml Inj) 1,000 ml @ 100 mls/hr Q10H IV 02/18/17 22:50 02/20/17 05:13 (NS Flush) 2 ml BID IV FLUSH 02/19/17 09:00 02/20/17 08:00 (Tylenol) 650 mg Q4H PRN PO 02/18/17 23:00 (Zofran Inj) 4 mg Q6H PRN IVP 02/18/17 23:00 (Colace) 100 mg Q12H PO 02/18/17 23:00 02/20/17 00:19 (Senokot) 17.2 mg Q12H PRN PO 02/18/17 23:00 (Tylenol) 650 mg Q6H PRN PO 02/18/17 23:00 ([place] 5-325 Mg) 1 tab Q4H PRN PO 02/18/17 23:00 ([place] 7.5-325 Mg) 1 tab Q4H PRN PO 02/18/17 23:00 (Morphine Inj) 1 mg Q3H PRN IV 02/18/17 23:00 (Narcan Inj) 0.4 mg UNSCH PRN IV 02/18/17 23:00 (NS Flush) 2 ml BID IV FLUSH 02/19/17 09:00 02/20/17 08:00 (NS Flush) 2 ml UNSCH PRN IVF 02/18/17 23:00 (Apresoline Inj) 10 mg Q6H PRN IV 02/18/17 23:00 Clonidine 0.1 mg 0.1 mg Q6H PRN PO 02/18/17 23:00 (Coumadin Consult Pharmacy) 0 ml @ 0 mls/hr UNSCH OTHER 02/18/17 23:00 (Aspirin Chew) 81 mg DAILY CHEW 02/19/17 09:00 02/20/17 08:00 (Coreg) 3.125 mg BID PO 02/19/17 09:00 02/20/17 08:00 (Neurontin) 300 mg HS PO 02/19/17 21:00 02/19/17 20:22 (Desyrel) 50 mg HS PRN PO 02/18/17 23:00 (Coumadin) 5 mg DAILY@16 PO 02/19/17 16:00 02/19/17 16:31 (Cardizem Cd) 240 mg BID PO 02/18/17 23:15 02/20/17 08:00 (Coumadin) 2 mg DAILY@16 PO 02/19/17 16:00 02/19/17 16:31 Miscellaneous Information Patient in critical care unit? Ass... [id number] XX 02/19/17 15:00 02/19/17 15:00 (Chlorhexidine 2% Cloth) 3 pack DAILY@04 TOP 02/20/17 04:00 02/24/17 04:01 02/20/17 00:20 (Chlorhexidine 2% Cloth) 3 pack UNSCH PRN TOP 02/19/17 15:00 02/24/17 14:48 (Keppra) 250 mg Q12HR PO 02/19/17 23:30 02/20/17 08:00 Allergies Allergies Coded Allergies Flu Vaccine (Verified Allergy, Severe, 02/18/17) Adhesives (Verified Allergy, Intermediate, RASH, 02/18/17) Erythromycin (Verified Allergy, Intermediate, Rash, 02/18/17) Flagyl (Verified Allergy, Intermediate, RASH, 02/18/17) Penicillin (Verified Allergy, Intermediate, 02/18/17) Sulfa (Verified Allergy, Intermediate, Rash, 02/18/17) *MDRO Multi-Drug Resistant Organism (Verified Adverse Reaction, Unknown, ) Review of Systems All other ROS: ROS reviewed as documented in chart Exam I&O / VS 02/19/17 02/19/17 02/20/17 15:00 23:00 07:00 Intake Total 1755 ml 1509 ml 807 ml Output Total 1600 ml 600 ml 300 ml Balance 155 ml 909 ml 507 ml Intake Oral 400 ml 480 ml IV Total 1355 ml 1029 ml 807 ml Output Urine Total 1600 ml 600 ml 300 ml # Bowel Movements 0 0 0 Vital Signs Date Time Temp Pulse Resp B/P Pulse Ox O2 Delivery O2 Flow Rate FiO2 02/20/17 06:00 77 02/20/17 04:00 99.1 74 19 111/57 96 02/20/17 04:00 74 02/20/17 02:00 74 02/20/17 00:00 80 02/20/17 00:00 99.3 80 25 115/55 97 02/19/17 22:00 79 02/19/17 20:00 87 02/19/17 20:00 99.5 87 20 143/63 97 02/19/17 19:05 97 Nasal Cannula 2.00 02/19/17 18:00 85 02/19/17 16:00 99.1 88 40 119/72 97 02/19/17 16:00 88 02/19/17 14:00 87 02/19/17 12:00 98.4 87 29 129/60 98 02/19/17 12:00 87 02/19/17 10:00 84 General: Alert and Oriented, No acute distress Eye: EOMI Respiratory: Non-labored respirations Cardiology: Normal rate Neurologic: Alert, Oriented, Normal sensory, Normal motor, No focal defects, CN II-XII intact, Gag reflex normal, Normal DTR's Psychiatric: Cooperative, Appropriate mood & affect, Normal judgement, Non- suicidal Exam Comments sitting up, ox 3, pleasant, calm, recognizes me, follows, no aphasia, vff, face sym, no drift Objective Micro and Labs Laboratory Tests Test 02/20/17 02/20/17 04:58 05:30 Prothrombin Time 19.7 Prothromb Time International 1.7 Ratio White Blood Count 6.1 Red Blood Count 3.66 Hemoglobin 8.7 Hematocrit 27.4 Mean Corpuscular Volume 74.8 Mean Corpuscular Hemoglobin 23.9 Mean Corpuscular Hemoglobin 31.9 Concent Red Cell Distribution Width 16.6 Platelet Count 87 Mean Platelet Volume 7.6 Neutrophils (%) (Auto) 86.3 Lymphocytes (%) (Auto) 6.3 Monocytes (%) (Auto) 5.3 Eosinophils (%) (Auto) 1.2 Basophils (%) (Auto) 0.9 Neutrophils # (Auto) 5.3 Lymphocytes # (Auto) 0.4 Monocytes # (Auto) 0.3 Eosinophils # (Auto) 0.1 Basophils # (Auto) 0.1 CBC Comment AUTO DIFF Sodium Level 139 Potassium Level 3.6 Chloride Level 106 Carbon Dioxide Level 25.1 Anion Gap 8 Blood Urea Nitrogen 30 Creatinine 0.70 Estimat Glomerular Filtration 81 Rate Random Glucose 93 Calcium Level 8.6 Date/Time Procedure Status Source Growth 02/19/17 18:20 Aerobic Blood Culture Received Blood Peripheral Pending 02/19/17 18:20 Anaerobic Blood Culture Received Blood Peripheral Pending 02/18/17 22:22 Urine Culture - Preliminary Resulted Urine Catheterized Urine IMMATURE GROWTH - REINCUBATE 02/18/17 21:25 Aerobic Blood Culture - Preliminary Resulted Blood Peripheral Gram Negative Tanner 02/18/17 21:25 Anaerobic Blood Culture - Preliminary Resulted Proteus Species Problem Qualifiers (1) UTI (urinary tract infection): Qualified Code: N39.0 - Urinary tract infection without hematuria, site unspecified Mark Salinas MD Feb 20, 2017 09:45
[2017-02-20] MEDS ORDERED: SUGAMMADEX SODIUM 200 MG/2 ML VIAL IV PUSH ONE ×2 (10:42)
[2017-02-20] MEDS ORDERED: ACETAMINOPHEN 1000 MG/100 ML VIAL IV ONE (10:43)
[2017-02-20] MEDS ORDERED: CIPROFLOXACIN 200 MG PREMIX 100 ML ONE (10:43)
[2017-02-20] MEDS ORDERED: IOHEXOL 350 MG/ML 50 ML BTL (for RAD DIAG) ONE (10:53)
--- NOTE | 2017-02-20 11:05 | PD.OP ---
Operative Report Date of Surgery: Feb 20, 2017 Preoperative Diagnosis: Left UPJ stone with multiple left renal calculi with hydronephrosis Postoperative Diagnosis: Procedure: Cystoscopy left retrograde study left double-J stent insertion Anesthesia: CRYSTAL Surgeon: Fernando Wynn Paid Search Analyst(s): None Resident Surgeon: None Operation and Findings: 81-year-old female presented with left-sided flank pain. CT scan in the emergency room demonstrated a 9 mm left UPJ stone with multiple left renal calculi. Decision is made to bring the patient to the operating room to undergo cystoscopy left retrograde study with left double-J stent insertion. Risks minutes were discussed preoperatively and she was willing to proceed. Patient is brought to operating room identify myself as [employer]. She was placed in the dorsal lithotomy position, prepped and draped in usual sterile fashion, received preprocedure bites, and general endotracheal tube anesthesia was administered. 22 [place] cystoscope was inserted in the bladder and acosta cystoscopy did not reveal any abnormalities. The left ureteral orifice was identified and cannulated with a 5 [place] open-ended catheter. A left retrograde pyelogram was then performed demonstrating good filling of the collecting system with stone visualized at the UPJ and within the kidney. A 0.35 sensor wire was then passed through the open-ended catheter and the open- end catheter was removed. A 6 [place] 20 cm left double-J stent was placed with a good curl in the kidney and a good curl in the bladder. The bladder was evacuated and she was awoken and transferred in stable condition. Fernando Wynn DO Feb 20, 2017 11:05
[2017-02-20] MEDS ORDERED: MIDAZOLAM HCL 2 MG/2 ML VIAL ONE (11:32)
[2017-02-20] MEDS ORDERED: ePHEDrine/NS 25 MG/5 ML SYR IV ONE (11:54)
[2017-02-20] MEDS ORDERED: PROPOFOL 200 MG/20 ML AMP IV ONE (11:54)
[2017-02-20] MEDS ORDERED: PHENYLEPH/NS 1000 MCG/10 ML SYR IV ONE (11:54)
[2017-02-20] MEDS ORDERED: ONDANSETRON HCL 4 MG/2 ML VIAL IV PUSH ONE (11:54)
--- NOTE | 2017-02-20 12:21 | RADRPT ---
EXAM DATE/TIME: 02/20/2017 11:32 [facility] COMPARISON: CHEST SINGLE AP, February 18, 2017, 20:45. INDICATIONS : Central line placement confirmation. MEDICAL HISTORY : Panreatitis. Stroke. Hypertension. SURGICAL HISTORY : Appendectomy. Cholecystectomy. Carpal tunnel syndrome. Rotator cuff. ENCOUNTER: Subsequent ACUITY: 3 days PAIN SCORE: 0/10 LOCATION: Chest. FINDINGS: Single view of the chest demonstrates a new right-sided central line with the tip projecting over the distal SVC. The heart size appears mildly enlarged, stable. The lungs are hypoinflated but clear. Os seous structures demonstrate stable severe degenerative changes within the glenohumeral joints. CONCLUSION: New right-sided central line which appears appropriate position. No evidence of acute cardiopulmonary disease. Sarah Owusu MD on February 20, 2017 at 12:19 Board Certified Radiologist. This report was verified electronically.
[2017-02-20 12:36] LABS: BANDS 20 % (0-6); EOSINOPHILS 1 % (0-4); NEUTROPHIL # MANUAL DIFF 5.4 TH/MM3 (1.8-7.7); PLATELET ESTIMATE SMEAR LOW (NORMAL); PLATELET MORPHOLOGY NORMAL (NORMAL); POLYS (SEG NEUTROPHILS) 68 % (16-70); SCAN/DIFF FINAL DIFF MANUAL; WBC DIFF SAMPLE 100
[2017-02-20 12:37] LABS: ACANTHOCYTES OCC (NORMAL)
[2017-02-20] MEDS: ACETAMINOPHEN/HYDROcodone 325 MG/7.5 MG TAB PO PRN ×2 (13:33→21:10)
[2017-02-20] MEDS ORDERED: WARFARIN SOD 4 MG TAB PO ONE (16:00)
[2017-02-20] MEDS: PANTOPRAZOLE SOD 40 MG DELAYED RELEASE TAB PO SCH (17:16)
[2017-02-20] MEDS: GABAPENTIN 300 MG CAP PO SCH (21:10)
--- NOTE | 2017-02-20 23:58 | HHI.PR ---
Subjective Remarks patient seen this afternoon after urologic procedure. Says she feels well. Still a little groggy. Reports pain is under control. Denies any chest pain or shortness of breath. Objective Vital Signs Date Time Temp Pulse Resp B/P Pulse Ox O2 Delivery O2 Flow Rate FiO2 02/20/17 23:29 98.3 75 16 130/86 97 02/20/17 21:22 98.3 78 16 139/54 97 02/20/17 18:04 68 02/20/17 17:08 68 02/20/17 16:06 73 02/20/17 15:38 20 02/20/17 15:33 75 02/20/17 15:33 97.8 75 20 135/75 97 02/20/17 14:16 79 02/20/17 12:00 69 02/20/17 12:00 95.9 69 16 129/66 97 02/20/17 11:45 70 16 107/56 97 Nasal Cannula 4 02/20/17 11:30 74 16 113/59 99 Nasal Cannula 4 02/20/17 11:20 97.4 72 16 128/74 99 Nasal Cannula 4 02/20/17 08:00 98.7 76 16 148/62 96 02/20/17 08:00 78 02/20/17 06:00 77 02/20/17 04:00 99.1 74 19 111/57 96 02/20/17 04:00 74 02/20/17 02:00 74 02/20/17 00:00 80 02/20/17 00:00 99.3 80 25 115/55 97 I/O 02/19/17 02/19/17 02/19/17 02/20/17 02/20/17 02/20/17 07:00 15:00 23:00 07:00 15:00 23:00 Intake Total 1755 ml 1509 ml 807 ml 750 ml 240 ml Output Total 1600 ml 600 ml 300 ml 0 ml 450 ml Balance 155 ml 909 ml 507 ml 750 ml -210 ml Intake Oral 400 ml 480 ml 0 ml 240 ml IV Total 1355 ml 1029 ml 807 ml 250 ml Other 500 ml Output Urine Total 1600 ml 600 ml 300 ml 0 ml 450 ml Estimated Blood Loss 0 ml # Bowel Movements 0 0 0 Result Diagram: 02/20/1752902/20/17529 Objective Remarks GENERAL: patient sitting up in bed. Appears comfortable. still somnolent after procedure. SKIN: Warm and dry. HEAD: Normocephalic. EYES: No scleral icterus. No injection or drainage. NECK: Supple, trachea midline. No JVD. CARDIOVASCULAR: Regular rate and rhythm without murmurs, gallops, or rubs. RESPIRATORY: Breath sounds equal bilaterally. No accessory muscle use. GASTROINTESTINAL: Abdomen soft, non-tender, nondistended. no rebound or guarding. MUSCULOSKELETAL: No cyanosis, or edema. BACK: Nontender without obvious deformity. A/P Assessment and Plan This is a 81-year-old female with history of Arthritis, asthma, anxiety, depression, atrial fibrillation, hyperlipidemia, COPD, CVA, chronic pancreatitis , gastroesophageal reflux disease, hypertension, and obstructive sleep apnea not on CPAP. She presented to the emergency room after being brought by EMS for altered mental status including combative behaviors and severe agitation along with confusion. Patient was seen in the [facility] emergency department earlier in the day and diagnosed with bilateral nephrolithiasis and UTI and was discharged with prescriptions for ciprofloxacin, Zofran, and Percocet. The patient's daughter went to the pharmacy to fill the medications and when she came back to the car the patient was very combative and confused. She also noted slurred speech. At this time, according to her daughter patient's confusion has resolved with improving slurred speech. She is oriented to person and place but not to time. Patient complained of today history of constant left flank pain associated with nausea, decreased urine output with dark urine color and chills. She has been seen by Dr. James for hematuria. She also reports of mild frontal headache without visual change, numbness and focal weakness //Metabolic Encephalopathy . Improved with treatment of sepsis. -Secondary to severe sepsis- TIA/CVA vs seizure vs infection-related delirium. Patient history of CVA and A. fib on Coumadin with therapeutic INR -MRI brain unremarkable - EEG with possible left frontotemporal changes which could be nidus for epileptic activity. - Neurology assistance appreciated. - seizure precautions - ativan 1 mg IV q6h PRN seizures - Tolerating diet //UTI. Previous urine culture grew Proteus resistant to Cipro. She is allergic to penicillin, Flagyl, erythromycin and so far. -Continue aztreonam -Follow-up urine culture //Severe sepsis with tachycardia and leukocytosis, bandemia, and lactic acid of 3.4. -Lactic acid improving. Continue antibiotics for UTI. Follow-up cultures. //Gram-negative bacteremia. Likely secondary to UTI. -Continue IV antibiotics -Repeat blood culture pending. -Continue to monitor cultures //Acute kidney injury with bilateral nephrolithiasis, left ureteropelvic 8 mm stone losing mild hydronephrosis. -Consult Dr. James - urology - patient has outpatient appointment with -NS at 100 cc/hr -Velasquez catheter for strict I/O - Avoid nephrotoxins -Status post ureteral stenting 02/20. -Appreciate urology assistance. //Chronic medical conditions of Arthritis, asthma/COPD, anxiety, depression, atrial fibrillation, hyperlipidemia, COPD, CVA, chronic pancreatitis, gastroesophageal reflux disease, hypertension, and obstructive sleep apnea not on CPAP. Continue outpatient medications as appropriate //History of atrial fibrillation. //History of hypertension -With relative hypotension on admission secondary to sepsis. -Continue diltiazem. Continue warfarin -Blood pressure acceptable.. Hold nonessential blood pressure medications for now. Restart as necessary. //Anemia. Hemoglobin in the eights. Continue to monitor. Multifactorial, partially secondary to dilution, also inflammation, also patient had intermittent hematuria which has improved. No signs of acute bleeding. //Prophylaxis. Patient will continue on warfarin. Discharge Planning continues on IV antibiotics for gram-negative bacteremia. -as patient failed outpatient treatment with Cipro, there is a good chance that patient may need IV antibiotics to go home. -Appreciate case management assistance. Myron Orellana MD Feb 20, 2017 23:58
[2017-02-21] VITALS (28 sets, daily range): BP systolic 121–166; BP diastolic 67–74; PULSE 60–97; RESP 16–19; TEMP 98–98.8; O2SAT 94–98
[2017-02-21] MEDS: CHLORHEXIDINE GLUCONATE 2 % 1 PACK (2 CLOTHS)(taper/protocol) TOP SCH (04:00)
[2017-02-21] MEDS: AZTREONAM INJ 2,000 MG in SODIUM CHLORIDE 0.9% INJ 100 ML IV SCH ×3 (04:15→20:51)
[2017-02-21 05:10] LABS: AUTOMATED NEUTROPHIL # 4.5 TH/MM3 (1.8-7.7); BASOPHIL % 0.3 % (0.0-2.0); EOSINOPHIL # 0.2 TH/MM3 (0-0.4); EOSINOPHIL % 3.6 % (0.0-4.0); HEMATOCRIT 27.6 % (35.0-46.0); LYMPHOCYTE # 0.4 TH/MM3 (1.0-4.8); MEAN CELL VOLUME 76.1 FL (80.0-100.0); MEAN CORPUSCULAR HEMOGLOBIN 23.6 PG (27.0-34.0); MONO % 7.9 % (0.0-8.0); NEUT % 80.2 % (16.0-70.0); PLATELET COUNT 85 TH/MM3 (150-450); RED BLOOD COUNT 3.63 MIL/MM3 (4.00-5.30); RED CELL DISTRIBUTION WIDTH 16.9 % (11.6-17.2); WHITE BLOOD COUNT 5.6 TH/MM3 (4.0-11.0)
[2017-02-21 05:12] LABS: INTERNATIONAL NORMALIZED RATIO 2.3 RATIO; PROTHROMBIN TIME - PATIENT 26.1 SEC (9.8-11.6)
[2017-02-21 05:14] LABS: BICARBONATE 25.2 MEQ/L (21.0-32.0); MAGNESIUM 1.7 MG/DL (1.5-2.5)
[2017-02-21 05:19] LABS: HEMO FLAGS AUTO DIFF
[2017-02-21 06:58] LABS: BANDS 17 % (0-6); EOSINOPHILS 2 % (0-4); METAMYELOCYTES 1 % (0-1); NEUTROPHIL # MANUAL DIFF 4.9 TH/MM3 (1.8-7.7); POLYS (SEG NEUTROPHILS) 70 % (16-70); WBC DIFF SAMPLE 100
[2017-02-21 06:59] LABS: PLATELET ESTIMATE SMEAR LOW (NORMAL); PLATELET MORPHOLOGY NORMAL (NORMAL); SCAN/DIFF FINAL DIFF MANUAL
[2017-02-21] MEDS: SODIUM CHLORIDE 0.9% FLUSH 10 ML FLUSH IV FLUSH SCH ×4 (09:00→21:00)
[2017-02-21] MEDS: CARVEDILOL 3.125 MG TAB PO SCH ×2 (09:04→20:51)
[2017-02-21] MEDS: PANTOPRAZOLE SOD 40 MG DELAYED RELEASE TAB PO SCH (09:04)
[2017-02-21] MEDS: DILTIAZEM-CD 240 MG CAP ER PO SCH ×2 (09:04→20:51)
[2017-02-21] MEDS: ASPIRIN 81 MG CHEW TAB CHEW SCH (09:04)
[2017-02-21] MEDS: levETIRAcetam 250 MG TAB PO SCH ×2 (09:04→20:51)
[2017-02-21] MEDS: SODIUM CHLOR 0.9% 1000 ML INJ 1,000 ML IV SCH ×2 (09:08→20:50)
--- NOTE | 2017-02-21 09:38 | HHI.PR ---
Subjective Patient symptoms today Pt seen and examined. Feeling better today. Objective Vital Signs Vital Signs Date Time Temp Pulse Resp B/P Pulse Ox O2 Delivery O2 Flow Rate FiO2 02/21/17 09:34 96 Nasal Cannula 2.00 02/21/17 05:10 98.6 72 16 150/67 97 02/21/17 05:00 70 02/21/17 04:00 70 02/21/17 03:00 68 02/21/17 02:00 60 02/21/17 01:00 60 02/21/17 00:00 68 02/20/17 23:29 98.3 75 16 130/86 97 02/20/17 23:00 80 02/20/17 21:22 98.3 78 16 139/54 97 02/20/17 21:00 78 02/20/17 20:00 74 02/20/17 19:00 72 02/20/17 18:04 68 02/20/17 17:08 68 02/20/17 16:06 73 02/20/17 15:38 20 02/20/17 15:33 75 02/20/17 15:33 97.8 75 20 135/75 97 02/20/17 14:16 79 02/20/17 12:00 69 02/20/17 12:00 95.9 69 16 129/66 97 02/20/17 11:45 70 16 107/56 97 Nasal Cannula 4 02/20/17 11:30 74 16 113/59 99 Nasal Cannula 4 02/20/17 11:20 97.4 72 16 128/74 99 Nasal Cannula 4 Result Diagram: 02/21/1742902/21/17429 Objective Remarks Abd:soft,nt,nd Velasquez with clear urine Medications and IVs Current Medications Medications (Trade) Dose Ordered Sig/Deana Route Start Time Stop Time Status Last Admin (Azactam Inj/NS Inj) 100 ml @ 200 mls/hr Q8H IV 02/19/17 05:00 02/21/17 04:15 Lorazepam 1 mg 1 mg Q6H PRN IV PUSH 02/18/17 23:00 (NS 1000 ml Inj) 1,000 ml @ 100 mls/hr Q10H IV 02/18/17 22:50 02/21/17 09:08 (NS Flush) 2 ml BID IV FLUSH 02/19/17 09:00 02/20/17 08:00 (Tylenol) 650 mg Q4H PRN PO 02/18/17 23:00 (Zofran Inj) 4 mg Q6H PRN IVP 02/18/17 23:00 (Colace) 100 mg Q12H PO 02/18/17 23:00 02/20/17 23:00 (Senokot) 17.2 mg Q12H PRN PO 02/18/17 23:00 (Tylenol) 650 mg Q6H PRN PO 02/18/17 23:00 ([place] 5-325 Mg) 1 tab Q4H PRN PO 02/18/17 23:00 ([place] 7.5-325 Mg) 1 tab Q4H PRN PO 02/18/17 23:00 02/20/17 21:10 (Morphine Inj) 1 mg Q3H PRN IV 02/18/17 23:00 (Narcan Inj) 0.4 mg UNSCH PRN IV 02/18/17 23:00 (NS Flush) 2 ml BID IV FLUSH 02/19/17 09:00 02/21/17 09:00 (NS Flush) 2 ml UNSCH PRN IVF 02/18/17 23:00 (Apresoline Inj) 10 mg Q6H PRN IV 02/18/17 23:00 Clonidine 0.1 mg 0.1 mg Q6H PRN PO 02/18/17 23:00 (Coumadin Consult Pharmacy) 0 ml @ 0 mls/hr UNSCH OTHER 02/18/17 23:00 (Aspirin Chew) 81 mg DAILY CHEW 02/19/17 09:00 02/21/17 09:04 (Coreg) 3.125 mg BID PO 02/19/17 09:00 02/21/17 09:04 (Neurontin) 300 mg HS PO 02/19/17 21:00 02/20/17 21:10 (Desyrel) 50 mg HS PRN PO 02/18/17 23:00 (Cardizem Cd) 240 mg BID PO 02/18/17 23:15 02/21/17 09:04 Miscellaneous Information Patient in critical care unit? Ass... Q361D XX 02/19/17 15:00 02/19/17 15:00 (Chlorhexidine 2% Cloth) 3 pack DAILY@04 TOP 02/20/17 04:00 02/24/17 04:01 02/20/17 00:20 (Chlorhexidine 2% Cloth) 3 pack UNSCH PRN TOP 02/19/17 15:00 02/24/17 14:48 (Keppra) 250 mg Q12HR PO 02/19/17 23:30 02/21/17 09:04 (Coumadin) 5 mg DAILY@16 PO 02/21/17 16:00 (Coumadin) 2 mg DAILY@16 PO 02/21/17 16:00 (Protonix) 40 mg DAILY PO 02/20/17 16:26 02/21/17 09:04 Assessment and Plan Assessment and Plan 81-year-old female with nephrolithiasis and 7 mm left UPJ stone causing mild to moderate hydronephrosis. Patient also with confusion on admission and now seems to be back to her baseline at present time. We'll schedule cystoscopy with left double-J stent insertion in the a.m. Nothing by mouth after midnight. Thank you for the consult and for allowing me to precipitate in the care of this patient. 02/21 Stable s/p cysto with left JJ stent insertion Void trial in AM Will need outpt lithotripsy. Fernando Wynn DO Feb 21, 2017 09:38
[2017-02-21] MEDS: DOCUSATE SODIUM 100 MG CAP PO SCH (12:11)
[2017-02-21] MEDS ORDERED: WARFARIN SOD 2 MG TAB PO SCH (16:00)
[2017-02-21] MEDS ORDERED: WARFARIN SOD 5 MG TAB PO SCH (16:00)
[2017-02-21] MEDS ORDERED: DOCUSATE SODIUM 50 MG/SENNA 8.6 MG TAB PO ONE (17:00)
[2017-02-21] MEDS ORDERED: MAGNESIUM HYDROXIDE SUSP 30 ML CUP PO ONE (17:00)
[2017-02-21] MEDS: GABAPENTIN 300 MG CAP PO SCH (20:51)
[2017-02-21] MEDS: ACETAMINOPHEN/HYDROcodone 325 MG/7.5 MG TAB PO PRN (21:02)
--- NOTE | 2017-02-21 23:59 | HHI.PR ---
Subjective Remarks patient seen this afternoon around 1 PM. Says she is feeling better. Pain much improved. She does report constipation. Objective Vital Signs Date Time Temp Pulse Resp B/P Pulse Ox O2 Delivery O2 Flow Rate FiO2 02/21/17 18:20 97 02/21/17 17:37 89 02/21/17 16:09 85 02/21/17 15:15 98.8 84 19 156/71 96 02/21/17 15:00 83 02/21/17 14:46 81 02/21/17 13:00 78 02/21/17 12:00 76 02/21/17 11:42 98.0 79 19 136/70 98 02/21/17 11:00 76 02/21/17 10:00 80 02/21/17 09:34 96 Nasal Cannula 2.00 02/21/17 09:00 76 02/21/17 08:00 74 02/21/17 07:15 98.8 75 19 121/69 97 02/21/17 07:00 78 02/21/17 05:10 98.6 72 16 150/67 97 02/21/17 05:00 70 02/21/17 04:00 70 02/21/17 03:00 68 02/21/17 02:00 60 02/21/17 01:00 60 02/21/17 00:00 68 I/O 02/20/17 02/20/17 02/20/17 02/21/17 02/21/17 02/21/17 07:00 15:00 23:00 07:00 15:00 23:00 Intake Total 807 ml 750 ml 240 ml 1560 ml 1700 ml Output Total 300 ml 0 ml 450 ml 550 ml 1000 ml Balance 507 ml 750 ml -210 ml 1010 ml 700 ml Intake Oral 0 ml 240 ml 360 ml 600 ml IV Total 807 ml 250 ml 1200 ml 1100 ml Other 500 ml Output Urine Total 300 ml 0 ml 450 ml 550 ml 1000 ml Estimated Blood Loss 0 ml # Bowel Movements 0 0 Result Diagram: 02/21/1742902/21/17429 Objective Remarks GENERAL: patient sitting up in bed. Appears comfortable. alert and oriented 3 SKIN: Warm and dry. HEAD: Normocephalic. EYES: No scleral icterus. No injection or drainage. NECK: Supple, trachea midline. No JVD. CARDIOVASCULAR: Regular rate and rhythm without murmurs, gallops, or rubs. RESPIRATORY: Breath sounds equal bilaterally. No accessory muscle use. GASTROINTESTINAL: Abdomen soft, non-tender, nondistended. no rebound or guarding. MUSCULOSKELETAL: No cyanosis, or edema. BACK: Nontender without obvious deformity. A/P Assessment and Plan This is a 81-year-old female with history of Arthritis, asthma, anxiety, depression, atrial fibrillation, hyperlipidemia, COPD, CVA, chronic pancreatitis , gastroesophageal reflux disease, hypertension, and obstructive sleep apnea not on CPAP. She presented to the emergency room after being brought by EMS for altered mental status including combative behaviors and severe agitation along with confusion. Patient was seen in the [facility] emergency department earlier in the day and diagnosed with bilateral nephrolithiasis and UTI and was discharged with prescriptions for ciprofloxacin, Zofran, and Percocet. The patient's daughter went to the pharmacy to fill the medications and when she came back to the car the patient was very combative and confused. She also noted slurred speech. At this time, according to her daughter patient's confusion has resolved with improving slurred speech. She is oriented to person and place but not to time. Patient complained of today history of constant left flank pain associated with nausea, decreased urine output with dark urine color and chills. She has been seen by Dr. James for hematuria. She also reports of mild frontal headache without visual change, numbness and focal weakness //Metabolic Encephalopathy . Improved with treatment of sepsis. -Secondary to severe sepsis- TIA/CVA vs seizure vs infection-related delirium. Patient history of CVA and A. fib on Coumadin with therapeutic INR -MRI brain unremarkable - EEG with possible left frontotemporal changes which could be nidus for epileptic activity. - Neurology assistance appreciated. - seizure precautions - ativan 1 mg IV q6h PRN seizures - Tolerating diet //UTI. Previous urine culture grew Proteus resistant to Cipro. She is allergic to penicillin, Flagyl, erythromycin and so far. -Continue aztreonam -Urine culture with Proteus //Severe sepsis with tachycardia and leukocytosis, bandemia, and lactic acid of 3.4. -Lactic acid improving. Continue antibiotics for UTI. Follow-up cultures. //Gram-negative bacteremia. Likely secondary to UTI. -Proteus in 4-4 blood cultures from admission. Repeat blood cultures negative so far. -Continue IV antibiotics -Consult infectious disease, as patient will need IV antibiotics to complete treatment course. //Acute kidney injury with bilateral nephrolithiasis, left ureteropelvic 8 mm stone losing mild hydronephrosis. -Consult Dr. James - urology - patient has outpatient appointment with -NS at 100 cc/hr -Velasquez catheter for strict I/O - Avoid nephrotoxins -Status post ureteral stenting 02/20. -Appreciate urology assistance. //Constipation. Cathartics ordered 02/21. Monitor. //Chronic medical conditions of Arthritis, asthma/COPD, anxiety, depression, atrial fibrillation, hyperlipidemia, COPD, CVA, chronic pancreatitis, gastroesophageal reflux disease, hypertension, and obstructive sleep apnea not on CPAP. Continue outpatient medications as appropriate //History of atrial fibrillation. //History of hypertension -With relative hypotension on admission secondary to sepsis. -Continue diltiazem. Continue warfarin -Blood pressure acceptable.. Hold nonessential blood pressure medications for now. Restart as necessary. //Anemia. Hemoglobin in the eights. Continue to monitor. Multifactorial, partially secondary to dilution, also inflammation, also patient had intermittent hematuria which has improved. No signs of acute bleeding. //Prophylaxis. Patient will continue on warfarin. Discharge Planning continues on IV antibiotics for gram-negative bacteremia. -PT says home with home health. patient may need IV antibiotics to go home. -Appreciate case management assistance. Myron Orellana MD Feb 21, 2017 23:59
[2017-02-22] VITALS (25 sets, daily range): BP systolic 143–158; BP diastolic 66–87; PULSE 64–93; RESP 18–20; TEMP 97.4–99; O2SAT 91–96
[2017-02-22] MEDS: DOCUSATE SODIUM 100 MG CAP PO SCH ×3 (00:29→20:24)
[2017-02-22] MEDS: CHLORHEXIDINE GLUCONATE 2 % 1 PACK (2 CLOTHS)(taper/protocol) TOP SCH (03:34)
[2017-02-22] MEDS: AZTREONAM INJ 2,000 MG in SODIUM CHLORIDE 0.9% INJ 100 ML IV SCH ×3 (05:48→20:23)
[2017-02-22] MEDS: SODIUM CHLOR 0.9% 1000 ML INJ 1,000 ML IV SCH (05:53)
[2017-02-22 06:20] LABS: AUTOMATED NEUTROPHIL # 4.1 TH/MM3 (1.8-7.7); BASOPHIL % 0.3 % (0.0-2.0); EOSINOPHIL # 0.2 TH/MM3 (0-0.4); EOSINOPHIL % 3.1 % (0.0-4.0); HEMATOCRIT 27.2 % (35.0-46.0); LYMPHOCYTE # 0.5 TH/MM3 (1.0-4.8); MEAN CELL VOLUME 75.5 FL (80.0-100.0); MEAN CORPUSCULAR HEMOGLOBIN 23.8 PG (27.0-34.0); MEAN CORPUSCULAR HGB CONC 31.5 % (32.0-36.0); MONO % 9.9 % (0.0-8.0); NEUT % 76.7 % (16.0-70.0); PLATELET COUNT 88 TH/MM3 (150-450); RED CELL DISTRIBUTION WIDTH 16.7 % (11.6-17.2); WHITE BLOOD COUNT 5.4 TH/MM3 (4.0-11.0)
[2017-02-22 06:34] LABS: INTERNATIONAL NORMALIZED RATIO 4.3 RATIO; PROTHROMBIN TIME - PATIENT 50.1 SEC (9.8-11.6)
[2017-02-22 06:42] LABS: HEMO FLAGS AUTO DIFF
[2017-02-22 07:03] LABS: BICARBONATE 25.7 MEQ/L (21.0-32.0); POTASSIUM 3.6 MEQ/L (3.5-5.1)
--- NOTE | 2017-02-22 08:40 | HHI.PR ---
Review/Management Diagnosis/Plan: (1) Encephalopathy Plan: resolved possible reaction to abx vs 2/2 pain/hydronephrosis fully alert and oriented this am. mri brain nml. inr therapeutic eeg-+left temporal focus for sz- may be 2/2 meds recs neuro stable continue keppra d/c planning outpatient f/u with us in 2-3 weeks d/w pt (2) Acute kidney injury (3) Anticoagulated on Coumadin Plan: inr 1.7 medical following (4) UTI (urinary tract infection) Subjective Subjective Comments No acute events reported No headache No chest pain No dyspnea Active Medications Current Medications Medications (Trade) Dose Ordered Sig/Deana Route Start Time Stop Time Status Last Admin (Azactam Inj/NS Inj) 100 ml @ 200 mls/hr Q8H IV 02/19/17 05:00 02/22/17 05:48 Lorazepam 1 mg 1 mg Q6H PRN IV PUSH 02/18/17 23:00 (NS 1000 ml Inj) 1,000 ml @ 100 mls/hr Q10H IV 02/18/17 22:50 02/22/17 05:53 (NS Flush) 2 ml BID IV FLUSH 02/19/17 09:00 02/20/17 08:00 (Tylenol) 650 mg Q4H PRN PO 02/18/17 23:00 (Zofran Inj) 4 mg Q6H PRN IVP 02/18/17 23:00 (Colace) 100 mg Q12H PO 02/18/17 23:00 02/22/17 00:29 (Senokot) 17.2 mg Q12H PRN PO 02/18/17 23:00 (Tylenol) 650 mg Q6H PRN PO 02/18/17 23:00 ([place] 5-325 Mg) 1 tab Q4H PRN PO 02/18/17 23:00 ([place] 7.5-325 Mg) 1 tab Q4H PRN PO 02/18/17 23:00 02/21/17 21:02 (Morphine Inj) 1 mg Q3H PRN IV 02/18/17 23:00 (Narcan Inj) 0.4 mg UNSCH PRN IV 02/18/17 23:00 (NS Flush) 2 ml BID IV FLUSH 02/19/17 09:00 02/21/17 09:00 (NS Flush) 2 ml UNSCH PRN IVF 02/18/17 23:00 (Apresoline Inj) 10 mg Q6H PRN IV 02/18/17 23:00 Clonidine 0.1 mg 0.1 mg Q6H PRN PO 02/18/17 23:00 (Coumadin Consult Pharmacy) 0 ml @ 0 mls/hr UNSCH OTHER 02/18/17 23:00 (Aspirin Chew) 81 mg DAILY CHEW 02/19/17 09:00 02/21/17 09:04 (Coreg) 3.125 mg BID PO 02/19/17 09:00 02/21/17 20:51 (Neurontin) 300 mg HS PO 02/19/17 21:00 02/21/17 20:51 (Desyrel) 50 mg HS PRN PO 02/18/17 23:00 (Cardizem Cd) 240 mg BID PO 02/18/17 23:15 02/21/17 20:51 Miscellaneous Information Patient in critical care unit? Ass... Q361D XX 02/19/17 15:00 02/19/17 15:00 (Chlorhexidine 2% Cloth) 3 pack DAILY@04 TOP 02/20/17 04:00 02/24/17 04:01 02/20/17 00:20 (Chlorhexidine 2% Cloth) 3 pack UNSCH PRN TOP 02/19/17 15:00 02/24/17 14:48 (Keppra) 250 mg Q12HR PO 02/19/17 23:30 02/21/17 20:51 (Coumadin) 5 mg DAILY@16 PO 02/21/17 16:00 Hold 02/21/17 17:10 (Coumadin) 2 mg DAILY@16 PO 02/21/17 16:00 Hold 02/21/17 17:10 (Protonix) 40 mg DAILY PO 02/20/17 16:26 02/21/17 09:04 Allergies Allergies Coded Allergies Flu Vaccine (Verified Allergy, Severe, 02/18/17) Adhesives (Verified Allergy, Intermediate, RASH, 02/18/17) Erythromycin (Verified Allergy, Intermediate, Rash, 02/18/17) Flagyl (Verified Allergy, Intermediate, RASH, 02/18/17) Penicillin (Verified Allergy, Intermediate, 02/18/17) Sulfa (Verified Allergy, Intermediate, Rash, 02/18/17) *MDRO Multi-Drug Resistant Organism (Verified Adverse Reaction, Unknown, ) Review of Systems All other ROS: ROS reviewed as documented in chart Exam I&O / VS 02/21/17 02/21/17 02/22/17 15:00 23:00 07:00 Intake Total 1700 ml 1491 ml Output Total 1000 ml 1375 ml Balance 700 ml 116 ml Intake Oral 600 ml 240 ml IV Total 1100 ml 1251 ml Output Urine Total 1000 ml 1375 ml # Bowel Movements 0 Vital Signs Date Time Temp Pulse Resp B/P Pulse Ox O2 Delivery O2 Flow Rate FiO2 02/22/17 07:00 97.5 78 18 151/78 91 02/22/17 06:00 76 02/22/17 05:00 76 02/22/17 04:00 76 02/22/17 04:00 97.4 76 20 148/73 96 02/22/17 02:00 80 02/22/17 01:00 82 02/22/17 00:00 84 02/22/17 00:00 98.2 81 18 153/83 96 02/21/17 23:00 86 02/21/17 22:00 88 02/21/17 21:00 92 02/21/17 20:00 89 02/21/17 20:00 98.6 90 18 166/74 94 02/21/17 19:00 90 02/21/17 18:20 97 02/21/17 17:37 89 02/21/17 16:09 85 02/21/17 15:15 98.8 84 19 156/71 96 02/21/17 15:00 83 02/21/17 14:46 81 02/21/17 13:00 78 02/21/17 12:00 76 02/21/17 11:42 98.0 79 19 136/70 98 02/21/17 11:00 76 02/21/17 10:00 80 02/21/17 09:34 96 Nasal Cannula 2.00 02/21/17 09:00 76 General: Alert and Oriented, No acute distress Eye: EOMI Respiratory: Non-labored respirations Cardiology: Normal rate Neurologic: Alert, Oriented, Normal sensory, Normal motor, No focal defects, CN II-XII intact, Gag reflex normal, Normal DTR's Psychiatric: Cooperative, Appropriate mood & affect, Normal judgement, Non- suicidal Exam Comments sitting up, ox 3, pleasant, calm, follows, no aphasia, vff, face sym, no drift Objective Micro and Labs Laboratory Tests Test 02/22/17 02/22/17 05:38 05:45 White Blood Count 5.4 Red Blood Count 3.60 Hemoglobin 8.6 Hematocrit 27.2 Mean Corpuscular Volume 75.5 Mean Corpuscular Hemoglobin 23.8 Mean Corpuscular Hemoglobin 31.5 Concent Red Cell Distribution Width 16.7 Platelet Count 88 Mean Platelet Volume 7.4 Neutrophils (%) (Auto) 76.7 Lymphocytes (%) (Auto) 10.0 Monocytes (%) (Auto) 9.9 Eosinophils (%) (Auto) 3.1 Basophils (%) (Auto) 0.3 Neutrophils # (Auto) 4.1 Lymphocytes # (Auto) 0.5 Monocytes # (Auto) 0.5 Eosinophils # (Auto) 0.2 Basophils # (Auto) 0.0 CBC Comment AUTO DIFF Sodium Level 143 Potassium Level 3.6 Chloride Level 109 Carbon Dioxide Level 25.7 Anion Gap 8 Blood Urea Nitrogen 13 Creatinine 0.43 Estimat Glomerular Filtration 142 Rate Random Glucose 162 Calcium Level 8.5 Prothrombin Time 50.1 Prothromb Time International 4.3 Ratio Date/Time Procedure Status Source Growth 02/19/17 18:20 Aerobic Blood Culture - Preliminary Resulted Blood Peripheral NO GROWTH IN 2 DAYS 02/19/17 18:20 Anaerobic Blood Culture - Preliminary Resulted Blood Peripheral NO GROWTH IN 2 DAYS 02/18/17 22:22 Urine Culture - Final Complete Urine Catheterized Urine Proteus Mirabilis 02/18/17 21:25 Aerobic Blood Culture - Final Complete Blood Peripheral Proteus Mirabilis 02/18/17 21:25 Anaerobic Blood Culture - Final Complete Proteus Mirabilis Problem Qualifiers (1) UTI (urinary tract infection): Qualified Code: N39.0 - Urinary tract infection without hematuria, site unspecified Mark Salinas MD Feb 22, 2017 08:40
[2017-02-22] MEDS: SODIUM CHLORIDE 0.9% FLUSH 10 ML FLUSH IV FLUSH SCH ×4 (09:00→20:24)
[2017-02-22 09:14] LABS: OVALOCYTES 1+ (NORMAL); PLATELET ESTIMATE SMEAR LOW (NORMAL); PLATELET MORPHOLOGY NORMAL (NORMAL); SCAN/DIFF AUTO DIFF CONFIRMED
[2017-02-22] MEDS: CARVEDILOL 3.125 MG TAB PO SCH ×2 (09:19→20:24)
[2017-02-22] MEDS: PANTOPRAZOLE SOD 40 MG DELAYED RELEASE TAB PO SCH (09:19)
[2017-02-22] MEDS: DILTIAZEM-CD 240 MG CAP ER PO SCH ×2 (09:19→20:23)
[2017-02-22] MEDS: levETIRAcetam 250 MG TAB PO SCH ×2 (09:19→20:24)
[2017-02-22] MEDS: ASPIRIN 81 MG CHEW TAB CHEW SCH (09:20)
--- NOTE | 2017-02-22 10:20 | HHI.PR ---
Subjective Patient symptoms today Pt seen and examined. Feels better. Velasquez out and voiding. Objective Vital Signs Vital Signs Date Time Temp Pulse Resp B/P Pulse Ox O2 Delivery O2 Flow Rate FiO2 02/22/17 10:00 93 02/22/17 09:47 94 21 02/22/17 09:00 86 02/22/17 08:00 80 02/22/17 07:00 76 02/22/17 07:00 97.5 78 18 151/78 91 02/22/17 06:00 76 02/22/17 05:00 76 02/22/17 04:00 76 02/22/17 04:00 97.4 76 20 148/73 96 02/22/17 02:00 80 02/22/17 01:00 82 02/22/17 00:00 84 02/22/17 00:00 98.2 81 18 153/83 96 02/21/17 23:00 86 02/21/17 22:00 88 02/21/17 21:00 92 02/21/17 20:00 89 02/21/17 20:00 98.6 90 18 166/74 94 02/21/17 19:00 90 02/21/17 18:20 97 02/21/17 17:37 89 02/21/17 16:09 85 02/21/17 15:15 98.8 84 19 156/71 96 02/21/17 15:00 83 02/21/17 14:46 81 02/21/17 13:00 78 02/21/17 12:00 76 02/21/17 11:42 98.0 79 19 136/70 98 02/21/17 11:00 76 Intake & Output 02/22/17 02/22/17 07:00 19:00 Intake Total 1491 ml Output Total 1375 ml Balance 116 ml Intake Oral 240 ml IV Total 1251 ml Output Urine Total 1375 ml Result Diagram: 02/22/1738 02/22/17537 Objective Remarks Abd:soft,nt,nd Velasquez with clear urine 02/22 Abd:soft,nt,nd Voiding Medications and IVs Current Medications Medications (Trade) Dose Ordered Sig/Deana Route Start Time Stop Time Status Last Admin (Azactam Inj/NS Inj) 100 ml @ 200 mls/hr Q8H IV 02/19/17 05:00 02/22/17 05:48 Lorazepam 1 mg 1 mg Q6H PRN IV PUSH 02/18/17 23:00 (NS 1000 ml Inj) 1,000 ml @ 100 mls/hr Q10H IV 02/18/17 22:50 02/22/17 05:53 (NS Flush) 2 ml BID IV FLUSH 02/19/17 09:00 02/20/17 08:00 (Tylenol) 650 mg Q4H PRN PO 02/18/17 23:00 (Zofran Inj) 4 mg Q6H PRN IVP 02/18/17 23:00 (Colace) 100 mg Q12H PO 02/18/17 23:00 02/22/17 00:29 (Senokot) 17.2 mg Q12H PRN PO 02/18/17 23:00 (Tylenol) 650 mg Q6H PRN PO 02/18/17 23:00 ([place] 5-325 Mg) 1 tab Q4H PRN PO 02/18/17 23:00 ([place] 7.5-325 Mg) 1 tab Q4H PRN PO 02/18/17 23:00 02/21/17 21:02 (Morphine Inj) 1 mg Q3H PRN IV 02/18/17 23:00 (Narcan Inj) 0.4 mg UNSCH PRN IV 02/18/17 23:00 (NS Flush) 2 ml BID IV FLUSH 02/19/17 09:00 02/21/17 09:00 (NS Flush) 2 ml UNSCH PRN IVF 02/18/17 23:00 (Apresoline Inj) 10 mg Q6H PRN IV 02/18/17 23:00 Clonidine 0.1 mg 0.1 mg Q6H PRN PO 02/18/17 23:00 (Coumadin Consult Pharmacy) 0 ml @ 0 mls/hr UNSCH OTHER 02/18/17 23:00 (Aspirin Chew) 81 mg DAILY CHEW 02/19/17 09:00 02/22/17 09:20 (Coreg) 3.125 mg BID PO 02/19/17 09:00 02/22/17 09:19 (Neurontin) 300 mg HS PO 02/19/17 21:00 02/21/17 20:51 (Desyrel) 50 mg HS PRN PO 02/18/17 23:00 (Cardizem Cd) 240 mg BID PO 02/18/17 23:15 02/22/17 09:19 Miscellaneous Information Patient in critical care unit? Ass... [id number] XX 02/19/17 15:00 02/19/17 15:00 (Chlorhexidine 2% Cloth) 3 pack DAILY@04 TOP 02/20/17 04:00 02/24/17 04:01 02/20/17 00:20 (Chlorhexidine 2% Cloth) 3 pack UNSCH PRN TOP 02/19/17 15:00 02/24/17 14:48 (Keppra) 250 mg Q12HR PO 02/19/17 23:30 02/22/17 09:19 (Coumadin) 5 mg DAILY@16 PO 02/21/17 16:00 Hold 02/21/17 17:10 (Coumadin) 2 mg DAILY@16 PO 02/21/17 16:00 Hold 02/21/17 17:10 (Protonix) 40 mg DAILY PO 02/20/17 16:26 02/22/17 09:19 Assessment and Plan Assessment and Plan 81-year-old female with nephrolithiasis and 7 mm left UPJ stone causing mild to moderate hydronephrosis. Patient also with confusion on admission and now seems to be back to her baseline at present time. We'll schedule cystoscopy with left double-J stent insertion in the a.m. Nothing by mouth after midnight. Thank you for the consult and for allowing me to precipitate in the care of this patient. 02/21 Stable s/p cysto with left JJ stent insertion Void trial in AM Will need outpt lithotripsy. 02/22 Stable s/p cysto with left JJ stent insertion Will need outpt lithotripsy. Coumadin will need to be held prior to procedure. Fernando Wynn DO Feb 22, 2017 10:20
[2017-02-22] MEDS: ACETAMINOPHEN/HYDROcodone 325 MG/7.5 MG TAB PO PRN ×3 (11:08→20:23)
--- NOTE | 2017-02-22 11:09 | HHI.PR ---
Subjective Remarks Patient reports feeling better overall. No bowel movement yet. Denies nausea or vomiting. Afebrile. Objective Vitals Vital Signs Date Time Temp Pulse Resp B/P Pulse Ox O2 Delivery O2 Flow Rate FiO2 02/22/17 10:00 93 02/22/17 09:47 94 21 02/22/17 09:00 86 02/22/17 08:00 80 02/22/17 07:00 76 02/22/17 07:00 97.5 78 18 151/78 91 02/22/17 06:00 76 02/22/17 05:00 76 02/22/17 04:00 76 02/22/17 04:00 97.4 76 20 148/73 96 02/22/17 02:00 80 02/22/17 01:00 82 02/22/17 00:00 84 02/22/17 00:00 98.2 81 18 153/83 96 02/21/17 23:00 86 02/21/17 22:00 88 02/21/17 21:00 92 02/21/17 20:00 89 02/21/17 20:00 98.6 90 18 166/74 94 02/21/17 19:00 90 02/21/17 18:20 97 02/21/17 17:37 89 02/21/17 16:09 85 02/21/17 15:15 98.8 84 19 156/71 96 02/21/17 15:00 83 02/21/17 14:46 81 02/21/17 13:00 78 02/21/17 12:00 76 02/21/17 11:42 98.0 79 19 136/70 98 I/O 02/21/17 02/21/17 02/21/17 02/22/17 02/22/17 02/22/17 07:00 15:00 23:00 07:00 15:00 23:00 Intake Total 1560 ml 1700 ml 1491 ml Output Total 550 ml 1000 ml 1375 ml Balance 1010 ml 700 ml 116 ml Intake Oral 360 ml 600 ml 240 ml IV Total 1200 ml 1100 ml 1251 ml Output Urine Total 550 ml 1000 ml 1375 ml # Bowel Movements 0 Result Diagram: 02/22/17 0538 02/22/17 0538 Imaging Last Impressions Chest X-Ray 02/20/17 0000 Signed Impressions: Service Date/Time: Monday, February 20, 2017 11:32 - CONCLUSION: New right- sided central line which appears appropriate position. No evidence of acute cardiopulmonary disease. Sarah Owusu MD Brain MRI 02/18/176 Signed Impressions: Service Date/Time: Saturday, February 18, 2017 23:24 - CONCLUSION: Normal examination. Kingsley Yoder Jr., MD Head CT 02/18/172028 Signed Impressions: Service Date/Time: Saturday, February 18, 2017 20:49 - CONCLUSION: No acute intracranial findings Gray Marroquin MD Objective Remarks GENERAL: This is a well-nourished, well-developed patient, in no apparent distress. CARDIOVASCULAR: Normal rate and regular rhythm without murmurs, gallops, or rubs. RESPIRATORY: Good respiratory efforts. Breath sounds equal and clear to auscultation bilaterally. GASTROINTESTINAL: Abdomen soft, non-tender, non-distended. Normal active bowel sounds MUSCULOSKELETAL: Extremities without cyanosis, or edema. NEURO: Alert & Oriented x4 to person, place, time, situation. Moves all ext x4 PSYCH: Appropriate mood and affect. A/P Problem List: (1) Encephalopathy ICD Code: G93.40 Status: Acute (2) Kidney stone on left side ICD Code: N20.0 Status: Acute (3) UTI (urinary tract infection) ICD Code: N39.0 Status: Acute (4) Severe sepsis ICD Code: A41.9 Status: Acute (5) Hypokalemia ICD Code: E87.6 Status: Acute (6) Acute kidney injury ICD Code: N17.9 Status: Acute Assessment and Plan 81-year-old female with history of Arthritis, asthma, anxiety, depression, atrial fibrillation, hyperlipidemia, COPD, CVA, chronic pancreatitis, gastroesophageal reflux disease, hypertension, and obstructive sleep apnea not on CPAP. She presented to the emergency room after being brought by EMS for altered mental status including combative behaviors and severe agitation along with confusion. Patient was seen in the [place] emergency department earlier in the day and diagnosed with bilateral nephrolithiasis and UTI and was discharged with prescriptions for ciprofloxacin, Zofran, and Percocet. The patient's daughter went to the pharmacy to fill the medications and when she came back to the car the patient was very combative and confused. She also noted slurred speech. Metabolic Encephalopathy . Resolved with treatment of sepsis. -Secondary to severe sepsis- TIA/CVA vs seizure vs infection-related delirium. Patient history of CVA and A. fib on Coumadin with therapeutic INR - MRI brain unremarkable - EEG with possible left frontotemporal changes - Neurology following. Continue Keppra. Advised outpatient follow-up. UTI. Previous urine culture grew Proteus resistant to Cipro. She is allergic to penicillin, Flagyl, erythromycin and so far. -Continue aztreonam -Urine culture grew Proteus - Infectious disease has been consulted to assist with antibiotics. Severe sepsis probably due to UTI and gram-negative bacteremia. -Improving. Continue antibiotics for UTI. Follow-up cultures. Gram-negative bacteremia. Likely secondary to UTI. -Proteus in 4-4 blood cultures from admission. Repeat blood cultures negative so far. -Continue IV antibiotics -Infectious diseases consulted to assist with course of treatment. Will likely need home IV antibiotics. Acute kidney injury with bilateral nephrolithiasis, left ureteropelvic 8 mm stone, mild hydronephrosis. -Appreciate urology following. -Status post ureteral stenting 02/20. -Outpatient follow-up is advised for lithotripsy. Constipation. Cathartics ordered 02/21. Monitor. Add lactulose. Chronic medical conditions of Arthritis, asthma/COPD, anxiety, depression, atrial fibrillation, hyperlipidemia, COPD, CVA, chronic pancreatitis, gastroesophageal reflux disease, hypertension, and obstructive sleep apnea not on CPAP. Continue outpatient medications as appropriate History of atrial fibrillation. History of hypertension -With relative hypotension on admission secondary to sepsis. -Continue diltiazem. Continue warfarin -Blood pressure acceptable.. Hold nonessential blood pressure medications for now. Restart as necessary. Anemia. Hemoglobin stable. Continue to monitor. Multifactorial, partially secondary to dilution, also inflammation, also patient had intermittent hematuria which has improved. No signs of acute bleeding. Prophylaxis. Patient will continue on warfarin. Discharge Planning Plan for discharge home with home health care and possibly IV antibiotics pending infectious disease consult. Problem Qualifiers (1) UTI (urinary tract infection): Qualified Code: N39.0 - Urinary tract infection without hematuria, site unspecified Kenneth Rosenberg MD Feb 22, 2017 11:09
[2017-02-22] MEDS ORDERED: LACTULOSE SYRUP 20 GM/30 ML CUP PO ONE (15:00)
--- NOTE | 2017-02-22 17:05 | MB ---
cc: KIRBY ORELLANA MD, FRANKLYN F. MD DATE OF CONSULTATION: 02/22/[address] Orellana REASON FOR CONSULTATION: Gram-negative bacteremia from urinary tract infection. Resistant to Levaquin. HISTORY OF PRESENT ILLNESS: This is a 81 year-old white female who was brought to the emergency department on 02/18 with altered mental status. The patient complained of flank pain and was noted to have bilateral kidney stones. She was noted to have tachycardia and decreased platelet count. Urinalysis revealed a large amount of leukocyte esterase and many white blood cell clumps. Cultures revealed Proteus in the urine and also Proteus in blood cultures. The patient has been on antibiotics since admission. She was evaluated by urology and she was noted to have left UPJ stone with multiple left renal calculi and hydronephrosis. She underwent cystoscopy and left double-J stent insertion. The patient is currently sitting up in a chair. She feels very tired. She notes pain across her lower abdomen. She has no other complaints. She has been afebrile since admission. Maximum temperature has been 99.1 degrees. PAST MEDICAL HISTORY, PAST SURGICAL HISTORY: 1. Hypertension. 2. Obstructive sleep apnea 3. Atrial fibrillation 4. Hyperlipidemia 5. Depression 6. Anxiety 7. Arthritis 8. Asthma. 9. CVA. 10. COPD. 11. Pancreatitis 12. History of appendectomy. 13. Cholecystectomy 14. Hysterectomy. ALLERGIES PENICILLIN, SULFA, FLAGYL, ERYTHROMYCIN, FLU VACCINE, ADHESIVES. MEDICATIONS: 1. Protonix. 2. Keppra 3. Neurontin. 4. Aztreonam 5. Coreg 6. aspirin 7. Colace 8. [place] 7.5 p.r.n. SOCIAL HISTORY No tobacco, no alcohol. No illicit drugs. FAMILY HISTORY Noncontributory. REVIEW OF SYSTEMS: Negative on 10 point review except for pain across the lower abdomen. PHYSICAL EXAMINATION This is a moderately obese female who is in no acute distress. She is awake but appears fatigued. Vital signs: Include temperature of 99 degrees, BP 158/86, respirations 20, heart rate 70. HEENT: Head is atraumatic. Extraocular movements grossly intact, pupils reactive to light without icterus. Oropharynx, no visible lesions. Mucosa is slightly dry. Poor dentition. Neck: Supple without adenopathy. Lungs: Diminished breath sounds throughout. Heart: Regular rate and rhythm. Abdomen: Bowel sounds present, obese, soft, mild tenderness of her left lower abdomen. Rectal: Not performed. Extremities: No clubbing, cyanosis or edema. Skin: No rash. Neuro: No gross focal findings. Psych: The patient is calm and cooperative. LABORATORY DATA WBC 5.3, platelets 88,000, hemoglobin 8.6, creatinine 0.43, BUN 13, sodium 143, lactic acid level on 02/18 was 3.4. IMPRESSION 1. Sepsis due to Proteus mirabilis. 2. UTI due to Proteus mirabilis. 3. Renal stones. 4. Status post ureteral stent. 5. Multiple antibiotic allergies. RECOMMENDATIONS 1. Continue aztreonam. 2. Monitor temperature. 3. Because of the patient's ALLERGY TO PENICILLIN AND ERYTHROMYCIN, I would continue to treat with aztreonam for a full ten day course of antibiotics. Thank you for this consultation. The patient's progress will be monitored and further recommendations will be made on followup. Teodoro Bey MD FD/GAGAN /2:17 PM /4:29 PM
[2017-02-22] MEDS: GABAPENTIN 300 MG CAP PO SCH (20:23)
[2017-02-23] VITALS (26 sets, daily range): BP systolic 150–170; BP diastolic 76–107; PULSE 69–88; RESP 16–20; TEMP 97.7–99.2; O2SAT 95–99
[2017-02-23] MEDS: CHLORHEXIDINE GLUCONATE 2 % 1 PACK (2 CLOTHS)(taper/protocol) TOP SCH (04:00)
[2017-02-23] MEDS: AZTREONAM INJ 2,000 MG in SODIUM CHLORIDE 0.9% INJ 100 ML IV SCH ×3 (04:26→20:58)
[2017-02-23 07:01] LABS: INTERNATIONAL NORMALIZED RATIO 4.2 RATIO; PROTHROMBIN TIME - PATIENT 49.5 SEC (9.8-11.6)
[2017-02-23] MEDS: SODIUM CHLORIDE 0.9% FLUSH 10 ML FLUSH IV FLUSH SCH ×4 (09:00→21:00)
[2017-02-23] MEDS: PANTOPRAZOLE SOD 40 MG DELAYED RELEASE TAB PO SCH (09:04)
[2017-02-23] MEDS: CARVEDILOL 3.125 MG TAB PO SCH ×2 (09:04→20:59)
[2017-02-23] MEDS: levETIRAcetam 250 MG TAB PO SCH ×2 (09:04→20:59)
[2017-02-23] MEDS: ACETAMINOPHEN/HYDROcodone 325 MG/7.5 MG TAB PO PRN ×2 (09:05→13:27)
[2017-02-23] MEDS: DILTIAZEM-CD 240 MG CAP ER PO SCH ×2 (09:05→20:59)
[2017-02-23] MEDS: ASPIRIN 81 MG CHEW TAB CHEW SCH (09:05)
[2017-02-23] MEDS: DOCUSATE SODIUM 100 MG CAP PO SCH ×2 (11:00→23:05)
--- NOTE | 2017-02-23 12:30 | HHI.PR ---
Subjective Remarks Patient reports feeling better today. She had a bowel movement yesterday. No fevers or chills. Objective Vitals Vital Signs Date Time Temp Pulse Resp B/P Pulse Ox O2 Delivery O2 Flow Rate FiO2 02/23/17 12:00 78 02/23/17 11:00 99.2 79 18 152/85 98 02/23/17 11:00 78 02/23/17 10:00 79 02/23/17 09:00 87 02/23/17 08:00 86 02/23/17 07:48 98.8 85 18 159/82 95 02/23/17 07:00 82 02/23/17 06:00 83 02/23/17 05:03 75 02/23/17 04:05 70 02/23/17 03:26 98.0 75 18 150/81 96 02/23/17 03:26 76 02/23/17 02:12 76 02/23/17 01:03 75 02/23/17 00:25 75 02/22/17 23:00 73 02/22/17 23:00 97.9 72 18 149/87 95 02/22/17 22:00 75 02/22/17 21:00 76 02/22/17 20:00 74 02/22/17 19:00 98.3 75 18 143/66 95 02/22/17 19:00 64 02/22/17 18:00 75 02/22/17 17:36 95 21 02/22/17 17:00 77 02/22/17 16:00 72 02/22/17 15:00 98.4 72 18 155/86 95 02/22/17 15:00 71 02/22/17 14:00 71 02/22/17 13:00 70 I/O 02/22/17 02/22/17 02/22/17 02/23/17 02/23/17 02/23/17 07:00 15:00 23:00 07:00 15:00 23:00 Intake Total 1491 ml 960 ml 560 ml Output Total 1375 ml 100 ml Balance 116 ml 860 ml 560 ml Intake Oral 240 ml 960 ml 360 ml IV Total 1251 ml 200 ml Output Urine Total 1375 ml 100 ml # Voids 2 2 # Bowel Movements 2 1 Result Diagram: 02/22/17 0538 02/22/1738 Objective Remarks GENERAL: This is a well-nourished, well-developed patient, in no apparent distress. CARDIOVASCULAR: Normal rate and regular rhythm without murmurs, gallops, or rubs. RESPIRATORY: Good respiratory efforts. Breath sounds equal and clear to auscultation bilaterally. GASTROINTESTINAL: Abdomen soft, non-tender, non-distended. Normal active bowel sounds MUSCULOSKELETAL: Extremities without cyanosis, or edema. NEURO: Alert & Oriented x4 to person, place, time, situation. Moves all ext x4 PSYCH: Appropriate mood and affect. A/P Problem List: (1) Encephalopathy ICD Code: G93.40 Status: Acute (2) Kidney stone on left side ICD Code: N20.0 Status: Acute (3) UTI (urinary tract infection) ICD Code: N39.0 Status: Acute (4) Severe sepsis ICD Code: A41.9 Status: Acute (5) Hypokalemia ICD Code: E87.6 Status: Acute (6) Acute kidney injury ICD Code: N17.9 Status: Acute Assessment and Plan 81-year-old female with history of Arthritis, asthma, anxiety, depression, atrial fibrillation, hyperlipidemia, COPD, CVA, chronic pancreatitis, gastroesophageal reflux disease, hypertension, and obstructive sleep apnea not on CPAP. She presented to the emergency room after being brought by EMS for altered mental status including combative behaviors and severe agitation along with confusion. Patient was seen in the [place] emergency department earlier in the day and diagnosed with bilateral nephrolithiasis and UTI and was discharged with prescriptions for ciprofloxacin, Zofran, and Percocet. The patient's daughter went to the pharmacy to fill the medications and when she came back to the car the patient was very combative and confused. She also noted slurred speech. Metabolic Encephalopathy . Resolved with treatment of sepsis. - Patient history of CVA and A. fib on Coumadin with therapeutic INR - MRI brain unremarkable - EEG with possible left frontotemporal changes - Neurology following. Continue Keppra. Advised outpatient follow-up. UTI. Previous urine culture grew Proteus resistant to Cipro. She is allergic to penicillin, Flagyl, erythromycin and so far. -Continue aztreonam -Urine culture grew Proteus - Infectious disease following, advised continuing aztreonam for full 10 day course. Severe sepsis probably due to UTI and gram-negative bacteremia. -Improving. Continue antibiotics per infectious disease. Patient to continue aztreonam for 10 days. Gram-negative bacteremia. Likely secondary to UTI. -Proteus in 4-4 blood cultures from admission. Repeat blood cultures negative so far. -Continue IV antibiotics as above Acute kidney injury with bilateral nephrolithiasis, left ureteropelvic 8 mm stone, mild hydronephrosis. -Appreciate urology following. -Status post ureteral stenting 02/20. -Outpatient follow-up is advised for lithotripsy. Constipation. Cathartics ordered 02/21. Monitor. Add lactulose. Chronic medical conditions of Arthritis, asthma/COPD, anxiety, depression, atrial fibrillation, hyperlipidemia, COPD, CVA, chronic pancreatitis, gastroesophageal reflux disease, hypertension, and obstructive sleep apnea not on CPAP. Continue outpatient medications as appropriate History of atrial fibrillation. History of hypertension -With relative hypotension on admission secondary to sepsis. -Continue diltiazem. Continue warfarin -Blood pressure acceptable. Hold nonessential blood pressure medications for now. Restart as necessary. Anemia. Hemoglobin stable. Continue to monitor. Multifactorial, partially secondary to dilution, also inflammation, also patient had intermittent hematuria which has improved. No signs of acute bleeding. Prophylaxis. Patient will continue on warfarin. Discharge Planning Plan for discharge home with home health care and possibly IV antibiotics pending infectious disease consult. Problem Qualifiers (1) UTI (urinary tract infection): Qualified Code: N39.0 - Urinary tract infection without hematuria, site unspecified Kenneth Rosenberg MD Feb 23, 2017 12:30
--- NOTE | 2017-02-23 16:10 | HHI.IDPN ---
Note Infectious Disease Note Patient feels better but still get lower abdominal pain. Receiving [place] for pain. No chills. No nausea or vomiting. Admitted with altered mental status, flank pain and bilateral kidney stones. PAST MEDICAL HISTORY, PAST SURGICAL HISTORY: 1. Hypertension. 2. Obstructive sleep apnea 3. Atrial fibrillation 4. Hyperlipidemia 5. Depression 6. Anxiety 7. Arthritis 8. Asthma. 9. CVA. 10. COPD. 11. Pancreatitis 12. History of appendectomy. 13. Cholecystectomy 14. Hysterectomy. ALLERGIES PENICILLIN, SULFA, FLAGYL, ERYTHROMYCIN, FLU VACCINE, ADHESIVES. MEDICATIONS: Aztreonam SOCIAL HISTORY No tobacco, no alcohol. No illicit drugs. FAMILY HISTORY Noncontributory. OBJECTIVE: Vital Signs Date Time Temp Pulse Resp B/P Pulse Ox O2 Delivery O2 Flow Rate FiO2 02/23/17 15:00 97.7 69 18 170/86 97 02/23/17 15:00 70 02/23/17 14:45 Nasal Cannula 2.00 02/23/17 14:00 71 02/23/17 13:00 75 02/23/17 12:00 78 02/23/17 11:00 99.2 79 18 152/85 98 02/23/17 11:00 78 02/23/17 10:00 79 02/23/17 09:00 87 02/23/17 08:00 86 02/23/17 07:48 98.8 85 18 159/82 95 02/23/17 07:00 82 02/23/17 06:00 83 02/23/17 05:03 75 02/23/17 04:05 70 02/23/17 03:26 98.0 75 18 150/81 96 02/23/17 03:26 76 02/23/17 02:12 76 02/23/17 01:03 75 02/23/17 00:25 75 02/22/17 23:00 73 02/22/17 23:00 97.9 72 18 149/87 95 02/22/17 22:00 75 02/22/17 21:00 76 02/22/17 20:00 74 02/22/17 19:00 98.3 75 18 143/66 95 02/22/17 19:00 64 02/22/17 18:00 75 02/22/17 17:36 95 21 02/22/17 17:00 77 02/22/17 02/22/17 02/23/17 15:00 23:00 07:00 Intake Total 960 ml 560 ml Output Total 100 ml Balance 860 ml 560 ml Intake Oral 960 ml 360 ml IV Total 200 ml Output Urine Total 100 ml # Voids 2 2 # Bowel Movements 2 1 Laboratory Tests Test 02/22/17 05:38 White Blood Count 5.4 TH/MM3 Red Blood Count 3.60 MIL/MM3 Hemoglobin 8.6 GM/DL Hematocrit 27.2 % Mean Corpuscular Volume 75.5 FL Mean Corpuscular Hemoglobin 23.8 PG Mean Corpuscular Hemoglobin 31.5 % Concent Red Cell Distribution Width 16.7 % Platelet Count 88 TH/MM3 Mean Platelet Volume 7.4 FL Neutrophils (%) (Auto) 76.7 % Lymphocytes (%) (Auto) 10.0 % Monocytes (%) (Auto) 9.9 % Eosinophils (%) (Auto) 3.1 % Basophils (%) (Auto) 0.3 % Neutrophils # (Auto) 4.1 TH/MM3 Lymphocytes # (Auto) 0.5 TH/MM3 Monocytes # (Auto) 0.5 TH/MM3 Eosinophils # (Auto) 0.2 TH/MM3 Basophils # (Auto) 0.0 TH/MM3 CBC Comment AUTO DIFF Differential Comment AUTO DIFF CONFIRMED Platelet Estimate LOW Platelet Morphology Comment NORMAL Ovalocytes 1+ Laboratory Tests Test 02/22/17 05:38 Sodium Level 143 MEQ/L Potassium Level 3.6 MEQ/L Chloride Level 109 MEQ/L Carbon Dioxide Level 25.7 MEQ/L Anion Gap 8 MEQ/L Blood Urea Nitrogen 13 MG/DL Creatinine 0.43 MG/DL Estimat Glomerular Filtration 142 ML/MIN Rate Random Glucose 162 MG/DL Calcium Level 8.5 MG/DL PHYSICAL EXAMINATION GENERAL: No acute distress. She is awake and alert. HEENT: No icterus. Oropharynx, no visible lesions. Mucosa is slightly dry. Neck: Supple without adenopathy. Lungs: Diminished breath sounds. Heart: Regular rate and rhythm. Abdomen: Bowel sounds present, obese, soft, mild tenderness at the left lower quadrant. Extremities: No clubbing, cyanosis or edema. Skin: No rash. Neuro: No gross focal findings. Psych: The patient is calm and cooperative. IMPRESSION 1. Sepsis due to Proteus mirabilis. 2. UTI due to Proteus mirabilis. 3. Renal stones. 4. Status post ureteral stent. 5. Multiple antibiotic allergies. RECOMMENDATIONS 1. Continue aztreonam IV until 02/28/17. 2. Will ask case management to see if outpatient treatment is feasible. Teodoro Bey MD Feb 23, 2017 16:10
--- NOTE | 2017-02-23 16:15 | HHI.FF ---
Infusion Therapy Location of Infusion Therapy: Home Health Care IV Infusion Order Patient Information Patient Weight 101.8 kg Diagnosis: (1) Sepsis (2) UTI (urinary tract infection) Coded Allergies: Flu Vaccine (Verified Allergy, Severe, 02/18/17) Adhesives (Verified Allergy, Intermediate, RASH, 02/18/17) Erythromycin (Verified Allergy, Intermediate, Rash, 02/18/17) Flagyl (Verified Allergy, Intermediate, RASH, 02/18/17) Penicillin (Verified Allergy, Intermediate, 02/18/17) Sulfa (Verified Allergy, Intermediate, Rash, 02/18/17) *MDRO Multi-Drug Resistant Organism (Verified Adverse Reaction, Unknown, ) MRSA (abdominal wound) - 12/12/2015 MRSA PCR Screen Positive 02/19/17 Administer Medication Aztreonam 2 grams IV Q 8 hours Stop Treatment: Feb 28, 2017 Additional Information Venous access: Other Additional Instructions [x] Peripheral flush and dressing changes per protocol [x] Implanted port and central online communications specialist: * Implanted port: 10 ml Normal Saline followed by 5 ml Heparin 100 units/ml Heparin flush after each use and monthly to maintain. [] May leave port accessed during therapy. [] May leave peripheral site accessed for duration of therapy. [x] If patient has SOB or respiratory distress, check oxygen saturation. If less than 90% or clinical signs of respiratory distress, administer oxygen at 2 L/min. via nasal cannula and notify physician. [x] Anaphylaxis/Reaction orders: * Stop infusion. * Keep IV line open with saline flush. * Notify physician. * Monitor vital signs every 15 minutes until symptoms resolve. * Check Oxygen saturation; Oxygen at 2 L/min. via nasal cannula if less than 90% or clinical signs of respiratory distress. * Administer diphenhydramine (Benadryl) 25 mg IV STAT, (unless patient has received as pre-med). May repeat once, if necessary. * Solu-Cortef 250 mg IVP over 30-60 seconds, use 100 mg vials for each dissolution. * Epinephrine (1mg/1 ml) 0.3 mg subcutaneously or IVP now with any signs of respiratory distress. * Check with physician for new additional pre-med orders if patient is re- challenged or re-treated. [x] May remove PICC line when treatment complete, after confirming with Physician. [x] If the patient is admitted to the hospital, the ED, or transferred via [facility] , complete transfer form including medication reconciliation order sheet. Laboratory Tests Weekly Labs: Teodoro Calvert MD Feb 23, 2017 16:15
[2017-02-23] MEDS: GABAPENTIN 300 MG CAP PO SCH (20:58)
[2017-02-24] VITALS (15 sets, daily range): BP systolic 156–166; BP diastolic 76–88; PULSE 76–100; RESP 16–17; TEMP 98.2–98.6; O2SAT 95–100
[2017-02-24] MEDS: CHLORHEXIDINE GLUCONATE 2 % 1 PACK (2 CLOTHS)(taper/protocol) TOP SCH (04:00)
[2017-02-24] MEDS: AZTREONAM INJ 2,000 MG in SODIUM CHLORIDE 0.9% INJ 100 ML IV SCH (04:43)
[2017-02-24 05:28] LABS: HEMATOCRIT 25.3 % (35.0-46.0); MEAN CELL VOLUME 74.1 FL (80.0-100.0); MEAN CORPUSCULAR HEMOGLOBIN 24.4 PG (27.0-34.0); MEAN CORPUSCULAR HGB CONC 32.9 % (32.0-36.0); PLATELET COUNT 153 TH/MM3 (150-450); RED BLOOD COUNT 3.41 MIL/MM3 (4.00-5.30); RED CELL DISTRIBUTION WIDTH 16.5 % (11.6-17.2); WHITE BLOOD COUNT 6.1 TH/MM3 (4.0-11.0)
[2017-02-24 05:48] LABS: BICARBONATE 31.4 MEQ/L (21.0-32.0); POTASSIUM 3.4 MEQ/L (3.5-5.1)
[2017-02-24 05:49] LABS: REVIEW FLAG FINAL
[2017-02-24 05:56] LABS: INTERNATIONAL NORMALIZED RATIO 1.9 RATIO; PROTHROMBIN TIME - PATIENT 22.1 SEC (9.8-11.6)
[2017-02-24] MEDS: CARVEDILOL 3.125 MG TAB PO SCH (09:37)
[2017-02-24] MEDS: DILTIAZEM-CD 240 MG CAP ER PO SCH (09:37)
[2017-02-24] MEDS: PANTOPRAZOLE SOD 40 MG DELAYED RELEASE TAB PO SCH (09:37)
[2017-02-24] MEDS: levETIRAcetam 250 MG TAB PO SCH (09:37)
[2017-02-24] MEDS: ASPIRIN 81 MG CHEW TAB CHEW SCH (09:37)
[2017-02-24] MEDS: SODIUM CHLORIDE 0.9% FLUSH 10 ML FLUSH IV FLUSH SCH ×2 (09:38)
[2017-02-24] MEDS ORDERED: TRAZ50TA12 PO (10:09)
[2017-02-24] MEDS ORDERED: LEVE250 PO (10:09)
[2017-02-24] MEDS ORDERED: PERC5TAB12 PO (10:09)
--- NOTE | 2017-02-24 10:11 | HHI.DS ---
Discharge Summary Admission Date Feb 18, 2017 at 22:57 Discharge Date: Feb 24, 2017 Admitting Diagnosis ams, sepsis,uti, elevated troponin I, hypokalemia (1) Encephalopathy ICD Code: G93.40 Diagnosis: Principal (2) Kidney stone on left side ICD Code: N20.0 Diagnosis: Principal (3) UTI (urinary tract infection) ICD Code: N39.0 Diagnosis: Principal (4) Severe sepsis ICD Code: A41.9 Diagnosis: Principal (5) Hypokalemia ICD Code: E87.6 Diagnosis: Principal (6) Acute kidney injury ICD Code: N17.9 Diagnosis: Principal Procedures Ureteral stent placement Brief History - From Admission This is a 81-year-old female with history of Arthritis, asthma, anxiety, depression, atrial fibrillation, hyperlipidemia, COPD, CVA, chronic pancreatitis , gastroesophageal reflux disease, hypertension, and obstructive sleep apnea not on CPAP. She presented to the emergency room after being brought by EMS for altered mental status including combative behaviors and severe agitation along with confusion. Patient was seen in the [facility] emergency department earlier in the day and diagnosed with bilateral nephrolithiasis and UTI and was discharged with prescriptions for ciprofloxacin, Zofran, and Percocet. The patient's daughter went to the pharmacy to fill the medications and when she came back to the car the patient was very combative and confused. She also noted slurred speech. At this time, according to her daughter patient's confusion has resolved with improving slurred speech. She is oriented to person and place but not to time. Patient complained of today history of constant left flank pain associated with nausea, decreased urine output with dark urine color and chills. She has been seen by Dr. James for hematuria. She also reports of mild frontal headache without visual change, numbness and focal weakness CBC/BMP: 02/24/17 0445 02/24/17 0445 Significant Findings Laboratory Tests Test 02/22/17 02/22/17 02/23/17 02/24/17 05:38 05:45 05:30 04:45 Red Blood Count 3.60 MIL/MM3 3.41 MIL/MM3 (4.00-5.30) (4.00-5.30) Hemoglobin 8.6 GM/DL 8.3 GM/DL (11.6-15.3) (11.6-15.3) Hematocrit 27.2 % 25.3 % (35.0-46.0) (35.0-46.0) Mean Corpuscular Volume 75.5 FL 74.1 FL (80.0-100.0) (80.0-100.0) Mean Corpuscular Hemoglobin 23.8 PG 24.4 PG (27.0-34.0) (27.0-34.0) Mean Corpuscular Hemoglobin 31.5 % Concent (32.0-36.0) Platelet Count 88 TH/MM3 (150-450) Neutrophils (%) (Auto) 76.7 % (16.0-70.0) Monocytes (%) (Auto) 9.9 % (0.0-8.0) Lymphocytes # (Auto) 0.5 TH/MM3 (1.0-4.8) Platelet Estimate LOW (NORMAL) Ovalocytes 1+ (NORMAL) Chloride Level 109 MEQ/L (98-107) Creatinine 0.43 MG/DL 0.28 MG/DL (0.50-1.00) (0.50-1.00) Random Glucose 162 MG/DL 152 MG/DL (74-106) (74-106) Prothrombin Time 50.1 SEC 49.5 SEC 22.1 SEC (9.8-11.6) (9.8-11.6) (9.8-11.6) Potassium Level 3.4 MEQ/L (3.5-5.1) Imaging Last Impressions Chest X-Ray 02/20/17 0000 Signed Impressions: Service Date/Time: Monday, February 20, 2017 11:32 - CONCLUSION: New right- sided central line which appears appropriate position. No evidence of acute cardiopulmonary disease. Sarah Owusu MD Brain MRI 02/18/17 6416 Signed Impressions: Service Date/Time: Saturday, February 18, 2017 23:24 - CONCLUSION: Normal examination. Kingsley Yoder Jr., MD Head CT 02/18/172028 Signed Impressions: Service Date/Time: Saturday, February 18, 2017 20:49 - CONCLUSION: No acute intracranial findings Gray Marroquin MD PE at Discharge GENERAL: This is a well-nourished, well-developed patient, in no apparent distress. CARDIOVASCULAR: Normal rate and regular rhythm without murmurs, gallops, or rubs. RESPIRATORY: Good respiratory efforts. Breath sounds equal and clear to auscultation bilaterally. GASTROINTESTINAL: Abdomen soft, non-tender, non-distended. Normal active bowel sounds MUSCULOSKELETAL: Extremities without cyanosis, or edema. NEURO: Alert & Oriented x4 to person, place, time, situation. Moves all ext x4 PSYCH: Appropriate mood and affect. Pt update on day of discharge Patient reports feeling better. Still with generalized weakness. But if she will do better in rehabilitation prior to going home as per the physical therapist recommendations. Hospital Course 81-year-old female with history of Arthritis, asthma, anxiety, depression, atrial fibrillation, hyperlipidemia, COPD, CVA, chronic pancreatitis, gastroesophageal reflux disease, hypertension, and obstructive sleep apnea not on CPAP. She presented to the emergency room after being brought by EMS for altered mental status including combative behaviors and severe agitation along with confusion. Patient was seen in the [facility] emergency department on the day of admission and diagnosed with bilateral nephrolithiasis and UTI and was discharged with prescriptions for ciprofloxacin, Zofran, and Percocet. The patient's daughter went to the pharmacy to fill the medications and when she came back to the car the patient was very combative and confused. She also noted slurred speech. Evaluation and treatment course detailed below: Metabolic Encephalopathy . Resolved with treatment of sepsis. - Patient history of CVA and A. fib on Coumadin with therapeutic INR - MRI brain unremarkable - EEG with possible left frontotemporal changes - Neurology followed the patient. She is to continue on Keppra and follow up outpatient. UTI. Previous urine culture grew Proteus resistant to Cipro. She is allergic to penicillin, Flagyl, erythromycin and so far. -The patient was followed by infectious disease. She was treated with aztreonam. She is to continue treatment until 02/28/17 per infectious disease recommendations. Continue aztreonam Severe sepsis probably due to UTI and gram-negative bacteremia. Resolved as above. To continue antibiotics treatment as noted above. Gram-negative bacteremia. Likely secondary to UTI. -Proteus in 4-4 blood cultures from admission. Repeat blood cultures negative. -Treated with IV antibiotics as above Acute kidney injury with bilateral nephrolithiasis, left ureteropelvic 8 mm stone, mild hydronephrosis. -Patient was followed by urology. She underwent ureteral stenting on 02/20. She is to follow up outpatient for lithotripsy. Constipation. Cathartics ordered 02/21. Resolved. History of atrial fibrillation. History of hypertension -With relative hypotension on admission secondary to sepsis. -Continue diltiazem. Continue warfarin -Blood pressure acceptable. Nonessential blood pressure medications were held and restarted as tolerated. Anemia. Hemoglobin stable. Continue to monitor. Multifactorial, partially secondary to dilution, also inflammation, also patient had intermittent hematuria which has improved. No signs of acute bleeding. Pt Condition on Discharge: Good Discharge Disposition: Discharge to SNF Discharge Time: > 30 minutes Discharge Instructions DIET: Follow Instructions for: Heart Healthy Diet Speech Therapy-Diet Recommends: Soft Activities you can perform: See Additionl Instruction Other Activity Instructions: Per PT instructions. Follow up Referrals: Neurology - 2 Weeks with Mark Salinas MD Urology - 2 Weeks with Fernando Wynn DO Continued Follow up Referrals: PCP Follow-up - 1 Week New Medications: Levetiracetam (Keppra) 250 Mg Tab 250 MG PO Q12HR #60 TAB Continued Medications: Aspirin (Aspirin) 81 Mg Chew 81 MG CHEW DAILY #1 Ref 0 TAB Carvedilol (Carvedilol) 3.125 Mg Tab 3.125 MG PO BID #60 Ref 0 TAB Diltiazem ER 12 HR (Diltiazem ER 12 HR) 120 Mg Caper 240 MG PO BID #60 Ref 0 CAP Gabapentin (Gabapentin) 300 Mg Cap 300 MG PO HS #30 Ref 0 CAP Lisinopril (Lisinopril) 20 Mg Tab 20 MG PO DAILY #30 Ref 0 TAB Oxycodone-Acetaminophen (Percocet) 5-325 mg Tab 1 TAB PO Q6H PRN PAIN #25 Ref 0 TAB (This prescription has been renewed) Sertraline (Sertraline) 100 Mg Tab 100 MG PO DAILY #30 Ref 0 TAB Trazodone (Trazodone) 50 Mg Tab 50 MG PO HS PRN SLEEP #30 Ref 0 TAB (This prescription has been renewed) Warfarin (Warfarin) 6 Mg Tab 7 MG PO DAILY Blood Clot Prevention #30 Ref 0 TAB Discontinued Medications: Ciprofloxacin (Cipro) 250 Mg Tab 750 MG PO BID Infection #14 Ref 0 TAB Cyclobenzaprine (Flexeril) 5 Mg Tab 5 MG PO BID #90 Ref 0 TAB Isosorbide Dinitrate (Isosorbide Dinitrate) 20 Mg Tab 20 MG PO Q8HR Ref 0 TAB Magnesium (Magnesium) 400 Mg Tab 400 MG PO DIRECTED Take Tuesday, Tuesday, and Tuesday. Nutritional Supplement Ref 0 TAB Ondansetron (Zofran) 4 Mg Tab 4 MG PO Q6HR PRN NAUSEA OR VOMITING #12 Ref 0 TAB Kenneth Rosenberg MD Feb 24, 2017 10:11
[2017-02-24] MEDS: DOCUSATE SODIUM 100 MG CAP PO SCH (12:16)
[2017-02-24] MEDS ORDERED: WARFARIN SOD 6 MG TAB PO SCH (16:00)
== END 2017-02-24 15:14 | DRG 871 ==
LOC: NEPC 20:07 → NEDA 22:57 → HIME 02-19 07:50 → HCIS 02-20 13:13
PROVIDERS: ADMIT Family Medicine; ATTEND Family Medicine
PROC: 0T9B70Z Drainage of Bladder with Drainage Device, Via Natural or Artificial Opening (ICD-10-PCS; principal; 2017-02-18)
PROC: 0T778DZ Dilation of Left Ureter with Intraluminal Device, Via Natural or Artificial Opening Endoscopic (ICD-10-PCS; 2017-02-20)
PROC: BT1F1ZZ Fluoroscopy of Left Kidney, Ureter and Bladder using Low Osmolar Contrast (ICD-10-PCS; 2017-02-20)
DX: A41.59 Other Gram-negative sepsis (principal); G93.41 Metabolic encephalopathy; N17.9 Acute kidney failure, unspecified; N13.2 Hydronephrosis with renal and ureteral calculous obstruction; I48.91 Unspecified atrial fibrillation; K86.1 Other chronic pancreatitis; R47.01 Aphasia; I10 Essential (primary) hypertension; N39.0 Urinary tract infection, site not specified; B96.4 Proteus (mirabilis) (morganii) as the cause of diseases classified elsewhere; J44.9 Chronic obstructive pulmonary disease, unspecified; Z86.73 Personal history of transient ischemic attack (TIA), and cerebral infarction without residual deficits; M19.90 Unspecified osteoarthritis, unspecified site; E78.5 Hyperlipidemia, unspecified; G47.00 Insomnia, unspecified; K21.9 Gastro-esophageal reflux disease without esophagitis; E78.00 Pure hypercholesterolemia, unspecified; J45.909 Unspecified asthma, uncomplicated; F41.9 Anxiety disorder, unspecified; F32.9 Major depressive disorder, single episode, unspecified; G47.33 Obstructive sleep apnea (adult) (pediatric); Z88.0 Allergy status to penicillin; Z79.01 Long term (current) use of anticoagulants; Z88.1 Allergy status to other antibiotic agents; Z96.653 Presence of artificial knee joint, bilateral; Z86.14 Personal history of Methicillin resistant Staphylococcus aureus infection; Z88.2 Allergy status to sulfonamides; Z91.09 Other allergy status, other than to drugs and biological substances; E87.6 Hypokalemia; R74.8 Abnormal levels of other serum enzymes; R65.20 Severe sepsis without septic shock; D64.9 Anemia, unspecified; K59.00 Constipation, unspecified; R00.0 Tachycardia, unspecified
CPT/HCPCS: 36569; 70450; 70551; 71010; 74176; 74420; 76937; 80048; 80053; 80069; 81001; 82140; 82550; 82948; 83605; 83735; 83880; 84443; 84484; 85007; 85025; 85027; 85610; 87040; 87077; 87086; 87186; 87205; 87641; 93005; 95819; C1769; C2617; J0131; J0744; J1580; J2250; J2370; J2405; J3010; J7030; P9612; Q2009; Q9967

== ENCOUNTER 2017-04-29 19:35 | Emergency (ER) | payer MEDICARE, OTHER ==
[~2017-04-29] VITALS: Ht 167.6 cm; Wt 99.0 kg
[~2017-04-29 19:35] MED LIST changes: -CIPR-9 PO; -CIPR250T52 PO; -CYCL5TAB PO; -ISOS20TA2 PO; +LEVE250 PO; -MAGN1TAB14 PO; -OMEP40CA2 PO; -ZOFR4TAB PO
[2017-04-29 19:38] VITALS: BP 150/76; PULSE 68; RESP 16; TEMP 98.1; O2SAT 96
[2017-04-29 21:20] VITALS: BP 212/94; PULSE 63; RESP 16; O2SAT 96
--- NOTE | 2017-04-29 21:33 | PD ---
HPI Chief Complaint: Fall Time Seen by Provider: 21:33 Travel History International Travel<30 days: No Contact w/Intl Traveler<30days: No Traveled to known affect area: No History of Present Illness HPI 81-year-old female with a history of hypertension, hyperlipidemia, COPD, asthma , CVA, A. fib presents to the emergency department for evaluation of fall with left elbow injury and elevated blood pressure. The patient is accompanied by her daughter who is her caregiver who provides some of the history as well. The patient states that this morning she was trying to use the bedside commode in her bedroom when he tried to turn around and sit on the toilet but she lost her balance and felt slightly lightheaded simultaneously. States that this caused her to fall onto her buttocks and scraped her left elbow on a nearby dresser. She denies head trauma or loss of consciousness. States that she has difficulty pulling herself from a sitting to standing position because she has bad knees and therefore had to scoot on her bottom across her bedroom to the front door of her house where she has steps and can pull herself up. States that all of this movement made her very tired and she then went to lie down and took a nap for about 3 hours. The patient's daughter states that while the patient was sleeping she was supposed to be taking her morning medications but she did not want to wake the patient and therefore she missed all of her morning medications. States that after the patient woke up and visited with some friends she was still feeling tired and the home health nurse called them to check on her and asked what her blood pressure was running. At that time her blood pressure was running about systolic 200/100, however she had still not taken her blood pressure medication. At this point the patient's daughter gave her 2 out of her 3 blood pressure medications and waited an hour and noted her blood pressure was now 180/100 and she was told to come to the emergency department by the home health care nurse. States that she has been completely out of her lisinopril for the past 5 days. The patient is complaining of some mild pain in the left elbow. She denies any fever, chills, nausea, vomiting, diarrhea, constipation, chest pain, shortness of breath. She does complain of some mild generalized abdominal pain, states that this has been present since she had a kidney stone last month and had a stent placed. No other complaints. She was discharged from the hospital to a rehabilitation facility and has seen her PCP Dr. Figueroa once since being discharged. PFSH Past Medical History Hx Anticoagulant Therapy: Yes Arthritis: Yes (both shoulders and arms, neck) Asthma: Yes Anxiety: Yes Depression: Yes Heart Rhythm Problems: Yes (hx AFib) Cardiovascular Problems: Yes High Cholesterol: Yes Chemotherapy: No Chest Pain: No Congestive Heart Failure: No COPD: Yes Cerebrovascular Accident: Yes Diabetes: No Diminished Hearing: No Endocrine: Yes Gastrointestinal Disorders: Yes (chronic pancreatitis) GERD: Yes Genitourinary: No Hiatal Hernia: No Hypertension: Yes Immune Disorder: No Implanted Vascular Access Dvce: Yes Insomnia: Yes Musculoskeletal: Yes (BACK PROBLMES) Neurologic: Yes Psychiatric: Yes Reproductive: No Respiratory: Yes (COPD) Immunizations Current: Yes Pancreatitis: Yes Radiation Therapy: No Sleep Apnea: Yes (has machine but doesn't use because of freq urination) Thyroid Disease: No Ulcer: No Menopausal: Yes : 5 Para: 4 Miscarriage: 1 Past Surgical History Abdominal Surgery: Yes (callie & appe 25yrs ago) Appendectomy: Yes Cardiac Surgery: Yes (cardiac cath, LOOP RECORDER PLACED AND REMOVED) Cholecystectomy: Yes Genitourinary Surgery: Yes (BLADDER LIFT) Gynecologic Surgery: Yes (hysterectomy) Hysterectomy: Yes Joint Replacement: Yes (BILATERAL KNEES ) Neurologic Surgery: No Thoracic Surgery: No Other Surgery: Yes (JESSICA LYMPHNODES REMOVED FROM JESSICA AXILLA AREA) Social History Alcohol Use: No Tobacco Use: No Substance Use: No Allergies-Medications (Allergen,Severity, Reaction): Coded Allergies: Flu Vaccine (Verified Allergy, Severe, 04/29/17) Adhesives (Verified Allergy, Intermediate, RASH, 04/29/17) Erythromycin (Verified Allergy, Intermediate, Rash, 04/29/17) Flagyl (Verified Allergy, Intermediate, RASH, 04/29/17) Penicillin (Verified Allergy, Intermediate, 04/29/17) Sulfa (Verified Allergy, Intermediate, Rash, 04/29/17) *MDRO Multi-Drug Resistant Organism (Verified Adverse Reaction, Unknown, ) MRSA (abdominal wound) - 12/12/2015 MRSA PCR Screen Positive 02/19/17 Reported Meds & Prescriptions Reported Meds & Active Scripts Active Keppra (Levetiracetam) 250 Mg Tab 250 Mg PO Q12HR Trazodone (Trazodone HCl) 50 Mg Tab 50 Mg PO HS PRN Reported Vesicare (Solifenacin) 10 Mg Tab 10 Mg PO DAILY Ventolin Hfa 18 GM Inh (Albuterol Sulfate) 90 Mcg/Act Aer 2 Puff INH Q4-6H PRN Oxycodone-Acetaminophen 5-325 mg Tab 1-2 Tab PO Q6H PRN Omeprazole 20 Mg Tab 20 Mg PO DAILY Magnesium Oxide 400 Mg Tab 400 Mg PO DAILY Klor-Con 10 (Potassium Chloride) 10 Meq Tab 10 Meq PO DAILY Isosorbide Dinitrate 20 Mg Tab 20 Mg PO TID Flexeril (Cyclobenzaprine HCl) 5 Mg Tab 5 Mg PO TID Sertraline (Sertraline HCl) 100 Mg Tab 100 Mg PO DAILY Lisinopril 20 Mg Tab 20 Mg PO DAILY Gabapentin 300 Mg Cap 300 Mg PO HS Diltiazem ER 12 HR (Diltiazem HCl) 120 Mg Caper 120 Mg PO BID Carvedilol 3.125 Mg Tab 3.125 Mg PO BID Aspirin 81 Mg Chew 81 Mg CHEW DAILY Review of Systems Except as stated in HPI: all other systems reviewed are Neg Physical Exam Narrative GENERAL: Well-nourished and well-developed pleasant female patient in no acute distress who is nontoxic appearing. SKIN: Warm and dry. Abrasion to left elbow. HEAD: Normocephalic and atraumatic. EYES: No injection, drainage, or hyphema noted. PERRLA. EOMI. ENT: No nasal drainage noted. Oropharynx is clear. NECK: Supple and the trachea is midline. CARDIOVASCULAR: Regular rate and rhythm. RESPIRATORY: Breath sounds are equal bilaterally with no accessory muscle use, wheezing, rhonchi, or crackles. GASTROINTESTINAL: Abdomen is soft, non-tender, and nondistended. No rebound tenderness or guarding. MUSCULOSKELETAL: No obvious deformities, swelling, cyanosis, or ecchymosis is present throughout the upper and lower extremities. Patient has full range of motion without any signs of neurovascular compromise. NEUROLOGICAL: Awake, alert, and oriented. Normal speech and gait. Cranial nerves are grossly intact. Data Data Last Documented VS Vital Signs Date Time Temp Pulse Resp B/P Pulse Ox O2 Delivery O2 Flow Rate FiO2 04/29/17 19:38 98.1 68 16 150/76 96 Room Air Orders Basic Metabolic Panel (Bmp) (04/29/17 21:31) Complete Blood Count With Diff (04/29/17 21:31) Urinalysis - C+S If Indicated (04/29/17 21:31) Ecg Monitoring (04/29/17 21:31) Iv Access Insert/Monitor (04/29/17 21:31) Oximetry (04/29/17 21:31) Elbow, Complete (4 Vws) (04/29/17 21:31) Lisinopril (Prinivil) (04/29/17 21:45) Urine Culture (04/29/17 21:45) Labs Laboratory Tests Test 04/29/17 21:45 White Blood Count 8.3 TH/MM3 Red Blood Count 4.79 MIL/MM3 Hemoglobin 12.6 GM/DL Hematocrit 37.9 % Mean Corpuscular Volume 79.1 FL Mean Corpuscular Hemoglobin 26.3 PG Mean Corpuscular Hemoglobin 33.2 % Concent Red Cell Distribution Width 16.3 % Platelet Count 168 TH/MM3 Mean Platelet Volume 7.1 FL Neutrophils (%) (Auto) 67.0 % Lymphocytes (%) (Auto) 22.7 % Monocytes (%) (Auto) 6.1 % Eosinophils (%) (Auto) 3.8 % Basophils (%) (Auto) 0.4 % Neutrophils # (Auto) 5.6 TH/MM3 Lymphocytes # (Auto) 1.9 TH/MM3 Monocytes # (Auto) 0.5 TH/MM3 Eosinophils # (Auto) 0.3 TH/MM3 Basophils # (Auto) 0.0 TH/MM3 CBC Comment DIFF FINAL Differential Comment Urine Color YELLOW Urine Turbidity HAZY Urine pH 5.5 Urine Specific [place] 1.015 Urine Protein 30 mg/dL Urine Glucose (UA) NEG mg/dL Urine Ketones NEG mg/dL Urine Occult Blood MOD Urine Nitrite NEG Urine Bilirubin NEG Urine Urobilinogen LESS THAN 2.0 MG/DL Urine Leukocyte Esterase MOD Urine RBC /hpf Urine WBC 37 /hpf Urine Squamous Epithelial 1 /hpf Cells Urine Bacteria MOD /hpf Urine Hyaline Casts 4 /lpf Urine Mucus FEW /lpf Microscopic Urinalysis Comment CULTURE INDICATED Sodium Level 139 MEQ/L Potassium Level 3.7 MEQ/L Chloride Level 101 MEQ/L Carbon Dioxide Level 32.6 MEQ/L Anion Gap 5 MEQ/L Blood Urea Nitrogen 12 MG/DL Creatinine 0.52 MG/DL Estimat Glomerular Filtration 114 ML/MIN Rate Random Glucose 99 MG/DL Calcium Level 9.5 MG/DL MDM Medical Decision Making Medical Screen Exam Complete: Yes Emergency Medical Condition: Yes Differential Diagnosis Medication noncompliance versus mechanical fall versus electrolyte abnormality versus UTI Narrative Course 81-year-old female who had a recent extended hospital stay with subsequent rehabilitation facility presents to the emergency department for evaluation of a fall that she states was both secondary to tripping over her feet and feeling a little lightheaded. Physical examination reveals only a small abrasion to the left elbow. Her blood pressure is noted to be about 200/90. She missed her morning dose of medication and has also been out of her lisinopril for 5 days. Overall she appears well. We will check basic labs and a urinalysis as well as an x-ray of the left elbow. If these are unremarkable she will be discharged home. CBC is unremarkable. BMP is unremarkable. Urinalysis shows 30 protein, moderate occult blood, moderate leukocyte Estrace, innumerable red blood cells, 37 white blood cells, moderate bacteria, few mucus. X-ray left elbow is unremarkable. The patient has had hematuria ongoing since her kidney stones. This is being followed by her urologist whom she has an appointment to follow-up with as an outpatient. She does have UTI at this time. Based on her previous urine cultures which should be sensitive to Keflex, therefore the patient will be sent home with this prescription. I will also give her a short refill of her lisinopril. She is instructed to follow-up with her PCP and her urologist as scheduled. Patient verbalizes understanding and agreement with treatment plan. Diagnosis Primary Impression: Urinary tract infection Qualified Code: N39.0 - Urinary tract infection with hematuria, site unspecified Additional Impression: Medication refill Referrals: Primary Care Physician Patient Instructions: General Instructions, Urinary Tract Infection in Women ( ED) Additional Instructions: Take medications as prescribed. Follow-up with your Primary Care Physician and your urologist. Return to the ED for any acute worsening of symptoms. Med/Other Pt SpecificInfo: Prescription(s) given Scripts Lisinopril 20 Mg Tab20 Mg PO DAILY 7 Days Ref 0 Prov:Ed Gregory MD 04/29/17 Cephalexin (Keflex)500 Mg Fud262 Mg PO Q12H 10 Days Ref 0 Prov:Ed Gregory MD 04/29/17 Disposition: 01 DISCHARGE HOME Condition: Stable Rosa Root Apr 29, 2017 21:33
[2017-04-29] MEDS ORDERED: ISOS20TA2 PO (21:34)
[2017-04-29] MEDS ORDERED: POTA-243 PO (21:34)
[2017-04-29] MEDS ORDERED: OMEP20TA PO (21:34)
[2017-04-29] MEDS ORDERED: MAGN400T2 PO (21:34)
[2017-04-29] MEDS ORDERED: CYCL5TAB PO (21:34)
[2017-04-29] MEDS ORDERED: VESI10TA PO (21:34)
[2017-04-29] MEDS ORDERED: OXYC1TAB63 PO (21:34)
[2017-04-29] MEDS ORDERED: VENTAER INH (21:34)
[2017-04-29] MEDS ORDERED: LISINOPRIL 20 MG TAB PO ONE (21:45)
[2017-04-29 21:58] LABS: AUTOMATED NEUTROPHIL # 5.6 TH/MM3 (1.8-7.7); BASOPHIL % 0.4 % (0.0-2.0); EOSINOPHIL # 0.3 TH/MM3 (0-0.4); EOSINOPHIL % 3.8 % (0.0-4.0); HEMATOCRIT 37.9 % (35.0-46.0); HEMO FLAGS DIFF FINAL; LYMPH % 22.7 % (9.0-44.0); LYMPHOCYTE # 1.9 TH/MM3 (1.0-4.8); MEAN CELL VOLUME 79.1 FL (80.0-100.0); MEAN CORPUSCULAR HEMOGLOBIN 26.3 PG (27.0-34.0); MEAN CORPUSCULAR HGB CONC 33.2 % (32.0-36.0); MONO % 6.1 % (0.0-8.0); PLATELET COUNT 168 TH/MM3 (150-450); RED BLOOD COUNT 4.79 MIL/MM3 (4.00-5.30); RED CELL DISTRIBUTION WIDTH 16.3 % (11.6-17.2); WHITE BLOOD COUNT 8.3 TH/MM3 (4.0-11.0)
[2017-04-29 22:14] LABS: BICARBONATE 32.6 MEQ/L (21.0-32.0); POTASSIUM 3.7 MEQ/L (3.5-5.1)
--- NOTE | 2017-04-29 22:15 | RADRPT ---
EXAM DATE/TIME: 04/29/2017 21:54 [facility] COMPARISON: ELBOW LEFT COMPLETE (4 VWS), November 24, 2015, 19:58. INDICATIONS : Left elbow pain after falling MEDICAL HISTORY : Panreatitis. Stroke. Hypertension SURGICAL HISTORY : Appendectomy. Cholecystectomy. Carpal tunnel syndrome. Rotator cuff ENCOUNTER: Initial ACUITY: 1 day PAIN SCORE: 6/10 LOCATION: Left elbow FINDINGS: Multiple view examination of the left elbow demonstrates no soft tissue swelling, joint effusion, or fracture. The osseous structures are in normal alignment. Bony mineralization is normal. CONCLUSION: Unremarkable examination of the left elbow. Kingsley Yoder Jr., MD on April 29, 2017 at 22:13 Board Certified Radiologist. This report was verified electronically.
[2017-04-29 22:28] LABS: BACTERIA, URINE MOD /hpf; BLOOD, URINE MOD (NEG); COMMENT (UR) CULTURE INDICATED; CULTURE IF INDICATED CULTURE INDICATED; GLUCOSE,URINE NEG (NEG); HYALINE CAST, URINE 4 /lpf (RARE); KETONE, URINE NEG (NEG); MUCUS URINE FEW /lpf (OCC); NITRITE,URINE NEG (NEG); PH, URINE 5.5 (5.0-8.5); SQUAMOUS EPITHELIAL CELL URINE 1 /hpf (0-5); URINE COLOR YELLOW (YELLW/STRAW)
[2017-04-29] MEDS ORDERED: LISI-515 PO (22:35)
[2017-04-29] MEDS ORDERED: CEPH-460 PO (22:35)
[2017-04-29 22:40] VITALS: BP 145/63; PULSE 61; RESP 16; O2SAT 96
[2017-04-29] MEDS ORDERED: CEPHALEXIN MONOHYDRATE 500 MG CAP PO ONE (23:00)
== END 2017-04-29 23:00 | disposition home or self-care (01) ==
LOC: NEPE 19:35
DX: N39.0 Urinary tract infection, site not specified (principal); B96.89 Other specified bacterial agents as the cause of diseases classified elsewhere; S59.902A Unspecified injury of left elbow, initial encounter; I10 Essential (primary) hypertension; I48.91 Unspecified atrial fibrillation; W01.0XXA Fall on same level from slipping, tripping and stumbling without subsequent striking against object, initial encounter; Y92.003 Bedroom of unspecified non-institutional (private) residence as the place of occurrence of the external cause
CPT/HCPCS: 73080; 80048; 81001; 85025; 87077; 87086; 87186; 99284

== ENCOUNTER 2017-07-12 12:26 | Emergency (ER) | payer MEDICARE, OTHER ==
[~2017-07-12] VITALS: Ht 152.4 cm; Wt 90.0 kg
[~2017-07-12 12:26] MED LIST changes: +CEPH-460 PO; +CYCL5TAB PO; +ISOS20TA2 PO; +MAGN400T2 PO; +OMEP20TA PO; +OXYC1TAB63 PO; -PERC5TAB12 PO; +POTA-243 PO; +VENTAER INH; +VESI10TA PO; -WARF-60 PO
[2017-07-12 12:29] VITALS: BP 176/74; PULSE 62; RESP 16; TEMP 98.4; O2SAT 96
--- NOTE | 2017-07-12 12:37 | PD ---
Physical Exam Date Seen by Provider: Jul 12, 2017 Time Seen by Provider: 12:34 Narrative 81 YOWF C/O NOSE BLEED. STARTED SAT. L WORSE THAN R.. SL DIZZINESS. NO CP,SOB, PALPITATIONS. 6/10 PAIN. NO BLOOD THINNERS. VS REVIEWED AWAITING BED PLACEMENT Data Data Last Documented VS Vital Signs Date Time Temp Pulse Resp B/P Pulse Ox O2 Delivery O2 Flow Rate FiO2 07/12/17 12:29 98.4 62 16 176/74 96 Room Air MDM Supervised Visit with ALIREZA: Grady Dias Jul 12, 2017 12:36
--- NOTE | 2017-07-12 15:35 | PD ---
HPI . nose bleed intermittently since Tuesday Chief Complaint: Nosebleed Time Seen by Provider: 15:35 Travel History International Travel<30 days: No Contact w/Intl Traveler<30days: No Traveled to known affect area: No History of Present Illness HPI 81-year-old female here with complaints of intermittent nosebleeds since Tuesday. Patient tells me that her nose has been bleeding periodically. She says she went to her primary care doctor yesterday was told to come in to the emergency department to have her nose packed. She says prior to arrival her nose was gushing blood, and she stick to tissues into her nose. In the emergency department in spite of the presence of her daughter, and there is minimal blood on one of the tissues. Is not even saturated through the tissue. Patient tells me that is odd because her nose was leaking profusely. She denies any nose picking or heavy blowing. She is not on any blood thinners. Apparently she was seen by her home health care nurse and told her blood pressure was elevated this morning. Her blood pressure is no longer elevated. She also has had a history of kidney stones and had stents removed 3 weeks ago. She was told by home health nurse to ask about "hematuria." She denies any blood in her urine, dysuria or increased frequency. She also reports a long-standing history of abdominal pain due to a hernia. She says the hernia causes intermittent pain. She also has chronic back pain. Apparently patient went to her primary care provider yesterday and was told she should come to the emergency department. PFSH Past Medical History Hx Anticoagulant Therapy: Yes Arthritis: Yes (both shoulders and arms, neck) Asthma: Yes Anxiety: Yes Depression: Yes Heart Rhythm Problems: Yes (hx AFib) Cardiovascular Problems: Yes High Cholesterol: Yes Chemotherapy: No Chest Pain: No Congestive Heart Failure: No COPD: Yes Cerebrovascular Accident: Yes Diabetes: No Diminished Hearing: No Endocrine: Yes Gastrointestinal Disorders: Yes (chronic pancreatitis) GERD: Yes Genitourinary: No Hiatal Hernia: No Hypertension: Yes Immune Disorder: No Implanted Vascular Access Dvce: Yes Insomnia: Yes Musculoskeletal: Yes (BACK PROBLMES) Neurologic: Yes Psychiatric: Yes Reproductive: No Respiratory: Yes (COPD) Immunizations Current: Yes Pancreatitis: Yes Radiation Therapy: No Sleep Apnea: Yes (has machine but doesn't use because of freq urination) Thyroid Disease: No Ulcer: No Menopausal: Yes : 5 Para: 4 Miscarriage: 1 Past Surgical History Abdominal Surgery: Yes (callie & appe 25yrs ago) Appendectomy: Yes Cardiac Surgery: Yes (cardiac cath, LOOP RECORDER PLACED AND REMOVED) Cholecystectomy: Yes Genitourinary Surgery: Yes (BLADDER LIFT) Gynecologic Surgery: Yes (hysterectomy) Hysterectomy: Yes Joint Replacement: Yes (BILATERAL KNEES ) Neurologic Surgery: No Thoracic Surgery: No Other Surgery: Yes (JESSICA LYMPHNODES REMOVED FROM JESSICA AXILLA AREA) Social History Alcohol Use: No Tobacco Use: No Substance Use: No Allergies-Medications (Allergen,Severity, Reaction): Coded Allergies: Influenza Virus Vaccines (Verified Allergy, Severe, 07/12/17) Sulfa (Sulfonamide Antibiotics) (Verified Allergy, Intermediate, Rash, ) adhesive (Verified Allergy, Intermediate, RASH, 07/12/17) erythromycin base (Verified Allergy, Intermediate, Rash, 07/12/17) metronidazole (Verified Allergy, Intermediate, RASH, 07/12/17) penicillin G (Verified Allergy, Intermediate, 07/12/17) *MDRO Multi-Drug Resistant Organism (Verified Adverse Reaction, Unknown, ) MRSA (abdominal wound) - 12/12/2015 MRSA PCR Screen Positive 02/19/17 Reported Meds & Prescriptions Reported Meds & Active Scripts Active Lisinopril 20 Mg Tab 20 Mg PO DAILY 7 Days Keflex (Cephalexin) 500 Mg Cap 500 Mg PO Q12H 10 Days Keppra (Levetiracetam) 250 Mg Tab 250 Mg PO Q12HR Trazodone (Trazodone HCl) 50 Mg Tab 50 Mg PO HS PRN Reported Vesicare (Solifenacin) 10 Mg Tab 10 Mg PO DAILY Ventolin Hfa 18 GM Inh (Albuterol Sulfate) 90 Mcg/Act Aer 2 Puff INH Q4-6H PRN Oxycodone-Acetaminophen 5-325 mg Tab 1-2 Tab PO Q6H PRN Omeprazole 20 Mg Tab 20 Mg PO DAILY Magnesium Oxide 400 Mg Tab 400 Mg PO DAILY Klor-Con 10 (Potassium Chloride) 10 Meq Tab 10 Meq PO DAILY Isosorbide Dinitrate 20 Mg Tab 20 Mg PO TID Flexeril (Cyclobenzaprine HCl) 5 Mg Tab 5 Mg PO TID Sertraline (Sertraline HCl) 100 Mg Tab 100 Mg PO DAILY Lisinopril 20 Mg Tab 20 Mg PO DAILY Gabapentin 300 Mg Cap 300 Mg PO HS Diltiazem ER 12 HR (Diltiazem HCl) 120 Mg Caper 120 Mg PO BID Carvedilol 3.125 Mg Tab 3.125 Mg PO BID Aspirin 81 Mg Chew 81 Mg CHEW DAILY Review of Systems General / Constitutional: No: Fever, Chills Eyes: No: Visual changes HENT: Positive: Nosebleed, No: Headaches, Vertigo, Lightheadedness, Sore Throat, Rhinitis, Congestion, Neck Stiffness Cardiovascular: No: Chest Pain or Discomfort Respiratory: No: Cough, Shortness of Breath, Wheezing, Sneezing Gastrointestinal: No: Nausea, Vomiting, Diarrhea, Abdominal Pain Genitourinary: No: Dysuria Musculoskeletal: No: Pain Skin: No Rash Neurologic: No: Weakness Psychiatric: No: Depression Endocrine: No: Polydipsia Hematologic/Lymphatic: No: Easy Bruising Physical Exam Narrative GENERAL: AAO x 3, no acute distress, Well-nourished, well-developed patient. SKIN: Warm and dry. No visible rashes or bruising. HEAD: Normocephalic and atraumatic. EYES: No scleral icterus. No injection or drainage. EOM intact, PERRLA ENT: No nasal drainage noted. Mucous membranes pink. Airway patent. no blood in nasal passage, no blood in oropharynx, NECK: Supple, trachea midline. No JVD. CARDIOVASCULAR: Regular rate and rhythm without murmurs, gallops, or rubs. RESPIRATORY: Breath sounds equal bilaterally. No accessory muscle use. No rhonchi or rales. No wheezing GASTROINTESTINAL: Abdomen soft, non-tender, nondistended. no rebound or guarding. no gross abn. EXTREMITIES: No cyanosis or edema. BACK: Nontender without obvious deformity. No CVA tenderness. NEURO: CN II-12 intact, PSYCH: AAO x 3, normal affect. Data Data Last Documented VS Vital Signs Date Time Temp Pulse Resp B/P Pulse Ox O2 Delivery O2 Flow Rate FiO2 07/12/17 12:29 98.4 62 16 176/74 96 Room Air MDM Medical Decision Making Medical Screen Exam Complete: Yes Emergency Medical Condition: Yes Medical Record Reviewed: Yes Differential Diagnosis epistaxis, nose trauma, less likely brain bleed Narrative Course 81-year-old female here with complaints of epistaxis. On examination she does not have any evidence of epistaxis. I suspect this may be related to possibly to picking or heavy blowing of her nose. I have reviewed all of her complaints. Many of them are chronic in nature. She 's not having any other acute issues. I explained to her that she will need to follow-up with her primary care provider. I advised her that I will observe her for a while and then discharge her if she does not have any evidence of epistaxis. Patient observed for 45 minutes and does not have any episodes of bleeding from her nose. There is no blood in the oropharynx. I have personally examined her myself alongside Susan PALMER-2. I discussed localized trauma such as nose picking and possibly blowing of her nose heavily. I advised her to follow-up with primary care provider and possibly seek an ear nose and throat referral if her symptoms continue. Diagnosis Primary Impression: Hx of epistaxis Additional Instructions: Please follow-up with your primary care provider. Return to the emergency department for any worsening of your condition. Med/Other Pt SpecificInfo: No Change to Meds Disposition: 01 DISCHARGE HOME Condition: Stable Yeni Winters Jul 12, 2017 15:35
== END 2017-07-12 16:34 | disposition home or self-care (01) ==
LOC: NEPD 12:26
DX: R04.0 Epistaxis (principal); I10 Essential (primary) hypertension; Z79.01 Long term (current) use of anticoagulants; J44.9 Chronic obstructive pulmonary disease, unspecified; F41.9 Anxiety disorder, unspecified; K21.9 Gastro-esophageal reflux disease without esophagitis; G47.33 Obstructive sleep apnea (adult) (pediatric)
CPT/HCPCS: 99281

== ENCOUNTER 2018-10-09 11:35 | Observation (INO) ==
[2018-10-09] MEDS ORDERED: Sod Chloride 0.9% Inj 1,000 ML IV.CONT SCH (12:15)
--- NOTE | 2018-10-09 12:18 | ED ---
HPI General Chief Complaint: Neuro Symptoms/Deficit Stated Complaint: dropping things, slurred speech, confused x4days Time Seen by Provider: 10/09/18 11:57 Source: patient and family Mode of arrival: ambulatory Limitations: no limitations History of Present Illness HPI Narrative: Patient is an 83-year-old female, past medical history significant for COPD, sleep apnea, atrial fibrillation not currently on anticoagulants, renal stones with lithotripsy 2 weeks ago and again on Tuesday who presents with complaint of slurred speech. She states that on Tuesday shortly after her last lithotripsy she began to have slurred speech and she began to drop things accidentally. This has not changed since onset. She has also had some difficulty with memory since then. No chest pain or shortness of breath. No abdominal pain. No headache no neck pain. Onset (ago): day(s) Timing confirmed by: family member Location: Reports speech History of same: No Severity: moderate Relieving factors: none Exacerbating factors: none Context: Reports sudden onset On Anticoagulants: No Treatments Prior to Arrival: Reports none Related Data Home Medications Medication Instructions Recorded Confirmed carvedilol 6.25 mg PO BID 10/09/18 10/09/18 diltiazem HCl 240 mg PO BID 10/09/18 10/09/18 ferrous sulfate 324 mg PO DAILY 10/09/18 10/09/18 gabapentin 300 mg PO QPM 10/09/18 10/09/18 hydrochlorothiazide 25 mg PO DAILY 10/09/18 10/09/18 levetiracetam 250 mg PO DAILY 10/09/18 10/09/18 losartan 100 mg PO DAILY 10/09/18 10/09/18 omeprazole 20 mg PO DAILY 10/09/18 10/09/18 potassium chloride 10 meq PO DAILY 10/09/18 10/09/18 sertraline 100 mg PO HS 10/09/18 10/09/18 trazodone 50 mg PO HS 10/09/18 10/09/18 Allergies Allergy/AdvReac Type Severity Reaction Status Date / Time Influenza Virus Vaccines Allergy Severe Swelling Verified 10/09/18 11:44 adhesive Allergy Intermediate RASH Verified 10/09/18 11:44 erythromycin base Allergy Intermediate Rash Verified 10/09/18 11:44 metronidazole Allergy Intermediate RASH Verified 10/09/18 11:44 penicillin G Allergy Intermediate Vomiting Verified 10/09/18 11:44 Sulfa (Sulfonamide Allergy Intermediate Rash Verified 10/09/18 11:44 Antibiotics) Review of Systems ROS: all other systems reviewed are negative [facility] Medical History Medical History Afib (Acute) COPD (chronic obstructive pulmonary disease) (Acute) H/O: hysterectomy (Acute) History of back pain (Acute) History of neck pain (Acute) Sleep apnea (Acute) Vertigo (Acute) Surgical History Surgical History History of appendectomy (Acute) History of cholecystectomy (Acute) Social History Social History Substance History: No History of Abuse Second Hand Smoke Exposure: No Smoking Status: Never smoker How Often Do You Have a Drink Containing Alcohol: Never Recent Travel in [facility] within the Last 8 Weeks: No Recent Out of Country Travel within the Last 8 Weeks: No Immunization History Tetanus Immunization: >5 Years Exam Narrative Exam Narrative: GENERAL: Well-appearing female in no acute distress SKIN: Focused skin assessment warm/dry. No rashes. HEAD: Atraumatic. Normocephalic. EYES: Pupils equal and round. No scleral icterus. No injection or drainage. ENT: No nasal bleeding or discharge. Mucous membranes pink and moist. NECK: Trachea midline. No JVD. CARDIOVASCULAR: Regular rate and rhythm. No murmur appreciated. Intact and equal peripheral pulses. RESPIRATORY: No accessory muscle use. Clear to auscultation. Breath sounds equal bilaterally. GASTROINTESTINAL: Abdomen soft, non-tender, nondistended. Hepatic and splenic margins not palpable. MUSCULOSKELETAL: No obvious deformities. No clubbing. No cyanosis. No edema. NEUROLOGICAL: Awake and alert. No facial droop. Motor grossly within normal limits. Decreased sensation to the left side of the face and left-sided extremities. Slight dysmetria of the left upper extremity. No pronator drift. No visual field deficits. Slurred speech. PSYCHIATRIC: Appropriate mood and affect; insight and judgment normal. Course Initial Documented Vital Signs Temperature 98.1 F 10/09/18 11:41 Pulse Rate 76 10/09/18 11:41 Respiratory Rate 20 10/09/18 11:41 Blood Pressure 107/52 L 10/09/18 11:41 Pulse Oximetry 95 11/12/18 11:41 Last Documented Vital Signs Temperature 98.1 F 10/09/18 11:41 Pulse Rate 77 10/09/18 13:55 Respiratory Rate 20 10/09/18 13:55 Blood Pressure 123/69 10/09/18 13:55 Pulse Oximetry 90 L 10/09/18 13:55 Medical Decision Making MDM Narrative Medical decision making narrative: Patient is an 83-year-old female who presents with complaint of 4 days of slurred speech with left-sided numbness and complaint of intermittently dropping things with some confusion. She recently had a lithotripsy and labs to reveal an GABRIEL compared to her previous baseline. CT head was unremarkable. She has been admitted to Dr. Francis, hospitalist on-call, for further workup and evaluation of her CVA versus TIA. Medical Screen Exam Complete: Yes Emergency Medical Condition: Yes Differential Diagnosis Differential Diagnosis: Differential diagnosis includes but is not limited to intracranial hemorrhage, cerebrovascular accident, electrolyte abnormality, anemia. Medical Records Medical records reviewed: Yes I reviewed the patient's medical records. Lab Data Lab results reviewed: Yes I reviewed the patient's lab results. Result diagrams: 10/09/18 12:38 10/09/18 12:38 Lab Results 10/09/18 10/09/18 10/09/18 Range/Units 12:34 12:38 12:38 CBC w Diff Auto diff final WBC 8.8 (4.0-11.0) th/mm3 RBC 3.36 L (4.00-5.30) mil/mm3 Hgb 9.8 L (11.6-15.3) gm/dL Hct 28.9 L (35.0-46.0) % MCV 86.1 (80.0-100.0) fL MCH 29.1 (27.0-34.0) pg MCHC 33.8 (32.0-36.0) % RDW 13.4 (11.6-17.2) % Plt Count 140 L (150-450) th/mm3 MPV 6.8 L (7.0-11.0) fL Neut % (Auto) 76.0 H (16.0-70.0) % Lymph % (Auto) 14.8 (9.0-44.0) % [place] % (Auto) 6.2 (0.0-8.0) % Eos % (Auto) 2.5 (0.0-4.0) % Baso % (Auto) 0.5 (0.0-2.0) % Neut # (Auto) 6.8 (1.8-7.7) th/mm3 Lymph # (Auto) 1.3 (1.0-4.8) th/mm3 [place] # (Auto) 0.5 (0.0-0.9) th/mm3 Eos # (Auto) 0.2 (0.0-0.4) th/mm3 Baso # (Auto) 0.0 (0.0-0.2) th/mm3 WBC Differential . Differential Comment . PT 10.7 (9.8-11.6) sec INR 1.1 Ratio APTT 30.0 (23.4-31.7) sec Sodium (136-145) meq/L Potassium (3.5-5.1) meq/L Chloride (98-107) meq/L Carbon Dioxide (21.0-32.0) meq/L Anion Gap (5-15) meq/L BUN (7-18) mg/dL Creatinine (0.50-1.00) mg/dL Estimated GFR (>89) mL/min POC Glucose 146 H (68-110) mg/dl Random Glucose (74-106) mg/dL Calcium (8.5-10.1) mg/dL Total Creatine Kinase (26-192) U/L CK-MB (CK-2) (0.5-3.6) ng/mL CK-MB (CK-2) % (0.0-4.0) % Troponin I (0.02-0.05) ng/mL 10/09/18 Range/Units 12:38 CBC w Diff WBC (4.0-11.0) th/mm3 RBC (4.00-5.30) mil/mm3 Hgb (11.6-15.3) gm/dL Hct (35.0-46.0) % MCV (80.0-100.0) fL MCH (27.0-34.0) pg MCHC (32.0-36.0) % RDW (11.6-17.2) % Plt Count (150-450) th/mm3 MPV (7.0-11.0) fL Neut % (Auto) (16.0-70.0) % Lymph % (Auto) (9.0-44.0) % [place] % (Auto) (0.0-8.0) % Eos % (Auto) (0.0-4.0) % Baso % (Auto) (0.0-2.0) % Neut # (Auto) (1.8-7.7) th/mm3 Lymph # (Auto) (1.0-4.8) th/mm3 [place] # (Auto) (0.0-0.9) th/mm3 Eos # (Auto) (0.0-0.4) th/mm3 Baso # (Auto) (0.0-0.2) th/mm3 WBC Differential Differential Comment PT (9.8-11.6) sec INR Ratio APTT (23.4-31.7) sec Sodium 135 L (136-145) meq/L Potassium 3.5 (3.5-5.1) meq/L Chloride 99 (98-107) meq/L Carbon Dioxide 29.4 (21.0-32.0) meq/L Anion Gap 7 (5-15) meq/L BUN 34 H (7-18) mg/dL Creatinine 2.10 H (0.50-1.00) mg/dL Estimated GFR 23 L (>89) mL/min POC Glucose (68-110) mg/dl Random Glucose 127 H (74-106) mg/dL Calcium 8.1 L (8.5-10.1) mg/dL Total Creatine Kinase 251 H (26-192) U/L CK-MB (CK-2) Less than 1.0 (0.5-3.6) ng/mL CK-MB (CK-2) % 0.4 (0.0-4.0) % Troponin I Less than 0.02 L (0.02-0.05) ng/mL Imaging Data Attestation: I personally reviewed and interpreted this imaging study as follows : Radiologist's impression: Chest X-Ray 10/09/18 12:12 CONCLUSION: No acute disease Head CT 10/09/18 12:12 CONCLUSION: 1. Negative for an acute process. There is no significant atrophy . ECG Data EKG Prior to Arrival: No Attestation: I personally reviewed and interpreted this ECG as follows: (Sinus rhythm at a rate of [address] or T wave changes.) Discharge Plan Discharge Disposition Patient Disposition: 30 Still Patient Discharge Condition Condition: Stable Discharge Details Diagnosis: Acute CVA (cerebrovascular accident), GABRIEL (acute kidney injury) Physicians Team ED Provider: Krystal Davis Primary Care Provider: Art Figueroa Rxs /Orders / Referrals /Forms Prescriptions: No Action levetiracetam 250 mg Tablet 250 mg PO DAILY RF: 0 potassium chloride 10 mEq Capsule, Extended Release 10 meq PO DAILY RF: 0 carvedilol 6.25 mg Tablet 6.25 mg PO BID RF: 0 trazodone 50 mg Tablet 50 mg PO HS RF: 0 diltiazem HCl 240 mg Capsule,Extended Release 24hr 240 mg PO BID RF: 0 sertraline 100 mg Tablet 100 mg PO HS RF: 0 omeprazole 20 mg Capsule,Delayed Release(Dr/Ec) 20 mg PO DAILY RF: 0 hydrochlorothiazide 25 mg Tablet 25 mg PO DAILY RF: 0 losartan 100 mg Tablet 100 mg PO DAILY RF: 0 ferrous sulfate 324 mg (65 mg iron) Tablet,Delayed Release (Dr/Ec) 324 mg PO DAILY RF: 0 gabapentin 300 mg Tablet Extended Release 24 Hr 300 mg PO QPM RF: 0 Discharge Interventions Interventions: Vital Signs Last Done: 10/09/18 13:55 Status ED Status: With Doctor
[2018-10-09 12:48] LABS: Baso % (Auto) 0.5 % (0.0-2.0); Eos # (Auto) 0.2 th/mm3 (0.0-0.4); Eos % (Auto) 2.5 % (0.0-4.0); Hematocrit 28.9 % (35.0-46.0); Hemoglobin 9.8 gm/dL (11.6-15.3); Lymph # (Auto) 1.3 th/mm3 (1.0-4.8); Lymph % (Auto) 14.8 % (9.0-44.0); Mean Corpuscular HGB Conc 33.8 % (32.0-36.0); Mean Corpuscular Hemoglobin 29.1 pg (27.0-34.0); Mean Corpuscular Volume 86.1 fL (80.0-100.0); Mean Platelet Volume 6.8 fL (7.0-11.0); Mono # (Auto) 0.5 th/mm3 (0.0-0.9); Mono % (Auto) 6.2 % (0.0-8.0); Neut # (Auto) 6.8 th/mm3 (1.8-7.7); Platelet Count 140 th/mm3 (150-450); Red Blood Count 3.36 mil/mm3 (4.00-5.30); Red Cell Distribution Width 13.4 % (11.6-17.2); White Blood Count 8.8 th/mm3 (4.0-11.0)
[2018-10-09 12:54] LABS: Chloride 99 meq/L (98-107); Potassium 3.5 meq/L (3.5-5.1); Sodium 135 meq/L (136-145)
[2018-10-09 12:57] LABS: Anion Gap 7 meq/L (5-15); Blood Urea Nitrogen 34 mg/dL (7-18); Calcium 8.1 mg/dL (8.5-10.1); Carbon Dioxide 29.4 meq/L (21.0-32.0); Glucose,Random 127 mg/dL (74-106)
--- NOTE | 2018-10-09 12:58 | XR ---
EXAM DATE: 10/09/2018 12:55 PM EST AGE/SEX: 83 years / Female INDICATIONS: . Weakness, slurred speech. CLINICAL DATA: This is the patient's initial encounter. Patient reports that signs and symptoms have been present for 4 - 6 days and indicates a pain score of 0/10. MEDICAL/SURGICAL HISTORY: Stroke. Hypertension. Pancreatitis. Appendectomy. Cholecystectomy. COMPARISON: [facility] [place], CHEST SINGLE AP, 02/20/2017. . FINDINGS: AP and lateral views of the chest demonstrate the lungs to be symmetrically aerated without evidence of mass, infiltrate or effusion. The cardiomediastinal contours are unremarkable. Healed right rib f ractures. Arthritic changes in the shoulders and spine. CONCLUSION: No acute disease Electronically signed by: Gray Marroquin MD 10/09/2018 12:57 PM EST
[2018-10-09 13:01] LABS: Glomerular Filtration Rate 23 mL/min (>89)
[2018-10-09 13:04] LABS: Creatine Kinase 251 U/L (26-192)
[2018-10-09 13:16] LABS: CKMB Percent 0.4 % (0.0-4.0)
--- NOTE | 2018-10-09 13:25 | CT ---
EXAM DATE: 10/09/2018 1:21 PM EST AGE/SEX: 83 years / Female INDICATIONS: Slurred speech. Dizziness. CLINICAL DATA: This is the patient's initial encounter. Patient reports that signs and symptoms have been present for 4 - 6 days and indicates a pain score of 0/10. MEDICAL/SURGICAL HISTORY: Chronic obstructive pulmonary disease. Appendectomy. Cholecystectomy. H ysterectomy. RADIATION DOSE: 51.28 CTDI (mGy) COMPARISON: [facility] – [place], CT BRAIN W/O CONTRAST, 02/18/2017. . TECHNIQUE: CT of the head without contrast. Using automated exposure control and adjustment of the mA and/or kV according to patient size, radiation dose was kept as low as reasonably achievable to ob tain optimal diagnostic quality images. DICOM format image data is available electronically for revi ew and comparison. FINDINGS: Cerebrum: The ventricles are normal for age. No evidence of midline shift, mass lesion, hemorrhage or acute infarction. No extraaxial fluid collections are seen. Posterior Fossa: The cerebellum and brainstem are intact. The 4th ventricle is midline. The cerebe llopontine angle is unremarkable. Extracranial: The visualized portion of the orbits is intact. Skull: The calvaria is intact. No evidence of skull fracture. CONCLUSION: 1. Negative for an acute process. There is no significant atrophy . Electronically signed by: Crow Norwood MD 10/09/2018 1:24 PM EST
[2018-10-09 13:26] LABS: INR 1.1 Ratio; Prothrombin Time 10.7 sec (9.8-11.6)
[2018-10-09] MEDS ORDERED: Bisacodyl 10 MG Supp RECTAL PRN (14:45)
[2018-10-09] MEDS ORDERED: Acetaminophen 325 MG Tablet PO PRN ×2 (14:45→15:01)
[2018-10-09 14:57] LABS: Bilirubin,Urine Negative (Negative); Clarity,Urine Slightly Cloudy (Clear); Color,Urine Yellow (Yellw/Straw); Glucose,Urine (UA) Negative (Negative); Leukocyte Esterase,Urine Moderate (Negative); Nitrite,Urine Negative (Negative); PH,Urine 5.5 (5.0-8.5); Urobilinogen,Urine 0.2 mg/dL (Less than 2)
--- NOTE | 2018-10-09 15:07 | P.HP ---
History of Present Illness Service: Hospitalist Primary Care Physician: Art Figueroa MD Chief Complaint: Dizziness, left arm weakness, confusion. History of Present Illness: Ms. Brennan is a pleasant 83-year-old female with a history of COPD, sleep apnea, atrial fibrillation, kidney stone who presents to the emergency department due to dizziness, confusion, left-sided weakness that started on 10/06. Patient underwent lithotripsy on 10/06/2018. Since then she has been experiencing slurred speech, confusion and dizziness. She also started dropping things. Today she was very confused as noted by patient's daughter. Patient denies any chest pain, cough, fever or chills. Denies any abdominal pain. Denies any changes in bowel or bladder habits. Past medical history: COPD, sleep apnea, atrial fibrillation, kidney stones Past surgical history: Cholecystectomy, hysterectomy, bilateral knee surgery Social history: Patient denies using tobacco or alcohol. Family history: Uncle had Alzheimer's disease. Review of Systems All other systems reviewed negative except as stated in HPI [facility] - History History Provided By: Patient, Family Member - Medical History Medical History: Medical History (Last Reviewed 10/09/18 @ 16:03 by Lashonda Francis DO) Afib COPD (chronic obstructive pulmonary disease) H/O: hysterectomy History of back pain History of neck pain Sleep apnea Vertigo - Surgical History Surgical History: Surgical History (Last Reviewed 10/09/18 @ 16:03 by Lashonda Francis DO) History of appendectomy History of cholecystectomy - Tobacco History Second Hand Smoke Exposure: No Smoking Status: Never smoker - Alcohol History How Often Do You Have a Drink Containing Alcohol: Never - Substance Use History Substance History: No History of Abuse - Travel History Recent Travel in the [place] Within the Last 8 Weeks: No Recent Travel Out of the Country Within the Last 8 Weeks: No - Immunization History Tetanus Immunization: >5 Years Medications and Allergies Active Medications: Active Medications Acetaminophen (Tylenol) 650 mg PO Q4H PRN PRN Reason: Headache, fever, pain 1-4 Al Hydroxide/Mg Hydroxide (Milk Of Magnesia Liq) 30 ml PO Q12H PRN PRN Reason: Mild Constipation Bisacodyl (Dulcolax Supp) 10 mg RECTAL DAILY PRN PRN Reason: SEVERE CONSITIPATION Sodium Chloride (Ns Inj) 1,000 mls @ 70 mls/hr IV.CONT .[id number] [facility] Stop: 10/10/18 02:32 Last Admin: 10/09/18 13:02 Dose: 70 mls/hr Sodium Chloride (Ns Inj) 1,000 mls @ 75 mls/hr IV.CONT .[id number] [facility] Stop: 10/10/18 14:44 Lactulose (Lactulose Liq) 30 ml PO DAILY PRN PRN Reason: SEVERE CONSITIPATION Ondansetron HCl (Zofran Inj) 4 mg IV.PUSH Q6H PRN PRN Reason: NAUSEA OR VOMITING Sennosides (Senokot) 17.2 mg PO Q12H PRN PRN Reason: Moderate Constipation Sodium Chloride (Ns Flush) 2 ml IV.FLUSH PRN PRN PRN Reason: FLUSH AFTER USING IV ACCESS Allergies Allergy/AdvReac Type Severity Reaction Status Date / Time Influenza Virus Vaccines Allergy Severe Swelling Verified 10/09/18 11:44 adhesive Allergy Intermediate RASH Verified 10/09/18 11:44 erythromycin base Allergy Intermediate Rash Verified 10/09/18 11:44 metronidazole Allergy Intermediate RASH Verified 10/09/18 11:44 penicillin G Allergy Intermediate Vomiting Verified 10/09/18 11:44 Sulfa (Sulfonamide Allergy Intermediate Rash Verified 10/09/18 11:44 Antibiotics) Home Medications Medication Instructions Recorded Confirmed Type carvedilol 6.25 mg PO BID 10/09/18 10/09/18 History diltiazem HCl 240 mg PO BID 10/09/18 10/09/18 History ferrous sulfate 324 mg PO DAILY 10/09/18 10/09/18 History gabapentin 300 mg PO QPM 10/09/18 10/09/18 History hydrochlorothiazide 25 mg PO DAILY 10/09/18 10/09/18 History levetiracetam 250 mg PO DAILY 10/09/18 10/09/18 History losartan 100 mg PO DAILY 10/09/18 10/09/18 History omeprazole 20 mg PO DAILY 10/09/18 10/09/18 History potassium chloride 10 meq PO DAILY 10/09/18 10/09/18 History sertraline 100 mg PO HS 10/09/18 10/09/18 History trazodone 50 mg PO HS 10/09/18 10/09/18 History Exam Vital signs: Vital Signs 10/09/18:41 10/09/18 12:12 10/09/18 12:40 Temperature 98.1 F Pulse Rate 76 76 78 Respiratory Rate 20 16 Blood Pressure 107/52 L 114/63 Pulse Oximetry 95 92 L 93 L 10/09/18 13:55 Temperature Pulse Rate 77 Respiratory Rate 20 Blood Pressure 123/69 Pulse Oximetry 90 L Intake & Output 10/08/18 10/09/18 10/09/18 18:59 06:59 18:59 Weight 92.9 kg Narrative: GENERAL: This is a well-nourished, well-developed patient, in no apparent distress. SKIN: No rashes, ecchymoses or lesions. Warm and dry. HEAD: Atraumatic. Normocephalic. No temporal or scalp tenderness. EYES: Pupils equal round and reactive. No injection or drainage. ENT: Nose without bleeding, purulent drainage or septal hematoma. Airway patent. NECK: Trachea midline. No lymphadenopathy. Supple, nontender, no meningeal signs. CARDIOVASCULAR: Regular rate and rhythm without murmurs, gallops, or rubs. No JVD. RESPIRATORY: Clear to auscultation. Breath sounds equal bilaterally. No wheezes , rales, or rhonchi. GASTROINTESTINAL: Abdomen soft, non-tender, nondistended. No guarding. MUSCULOSKELETAL: Extremities without clubbing, cyanosis, or edema. NEUROLOGICAL: Awake and alert. Cranial nerves II through XII intact. Left upper extremity weaker than the right. About 3/5. Left lower extremity 4/5 normal speech. Results - Labs CBC & Chem 7: 10/09/18 12:38 10/09/18 12:38 Labs: Laboratory Results - last 24 hr 10/09/18 10/09/18 10/09/18 12:34 12:38 12:38 CBC w Diff Auto diff final WBC 8.8 RBC 3.36 L Hgb 9.8 L Hct 28.9 L MCV 86.1 MCH 29.1 MCHC 33.8 RDW 13.4 Plt Count 140 L MPV 6.8 L Neut % (Auto) 76.0 H Lymph % (Auto) 14.8 [place] % (Auto) 6.2 Eos % (Auto) 2.5 Baso % (Auto) 0.5 Neut # (Auto) 6.8 Lymph # (Auto) 1.3 [place] # (Auto) 0.5 Eos # (Auto) 0.2 Baso # (Auto) 0.0 WBC Differential . Differential Comment . PT 10.7 INR 1.1 APTT 30.0 Sodium Potassium Chloride Carbon Dioxide Anion Gap BUN Creatinine Estimated GFR POC Glucose 146 H Random Glucose Calcium Total Creatine Kinase CK-MB (CK-2) CK-MB (CK-2) % Troponin I Urine Color Urine Clarity Urine pH Ur Specific [place] Urine Protein Urine Glucose (UA) Urine Ketones Urine Occult Blood Urine Nitrate Urine Bilirubin Urine Urobilinogen Ur Leukocyte Esterase 10/09/18 10/09/18 12:38 14:40 CBC w Diff WBC RBC Hgb Hct MCV MCH MCHC RDW Plt Count MPV Neut % (Auto) Lymph % (Auto) [place] % (Auto) Eos % (Auto) Baso % (Auto) Neut # (Auto) Lymph # (Auto) [place] # (Auto) Eos # (Auto) Baso # (Auto) WBC Differential Differential Comment PT INR APTT Sodium 135 L Potassium 3.5 Chloride 99 Carbon Dioxide 29.4 Anion Gap 7 BUN 34 H Creatinine 2.10 H Estimated GFR 23 L POC Glucose Random Glucose 127 H Calcium 8.1 L Total Creatine Kinase 251 H CK-MB (CK-2) Less than 1.0 CK-MB (CK-2) % 0.4 Troponin I Less than 0.02 L Urine Color Yellow Urine Clarity Slightly cloudy Urine pH 5.5 Ur Specific [place] 1.020 Urine Protein 30 H Urine Glucose (UA) Negative Urine Ketones Negative Urine Occult Blood Large H Urine Nitrate Negative Urine Bilirubin Negative Urine Urobilinogen 0.2 Ur Leukocyte Esterase Moderate H - Imaging Impressions Chest X-Ray 10/09/18 12:12 CONCLUSION: No acute disease Head CT 10/09/18 12:12 CONCLUSION: 1. Negative for an acute process. There is no significant atrophy . Caprini VTE Risk Assessment Caprini VTE Risk Assessment: Moderate/High Risk (score >= 2) Caprini Risk Assessment Model: Point Value = 1 Point Value = 2 Point Value = 3 Point Value = 5 Age 41-60 Minor surgery BMI > 25 kg/m2 Swollen legs Varicose veins or History of unexplained or recurrent spontaneous Oral contraceptives or hormone replacement Sepsis (< 1 month) Serious lung disease, including pneumonia (< 1 month) Abnormal pulmonary function Acute myocardial infarction Congestive heart failure (< 1 month) History of inflammatory bowel disease Medical patient at bed rest Age 61-74 Arthroscopic surgery Major open surgery (> 45 min) Laparoscopic surgery (> 45 min) Malignancy Confined to bed (> 72 hours) Immobilizing plaster cast Central venous access Age >= 75 History of VTE Family history of VTE Factor V Leiden Prothrombin [id number] Lupus anticoagulant Anticardiolipin antibodies Elevated serum homocysteine Heparin-induced thrombocytopenia Other congenital or acquired thrombophilia Stroke (< 1 month) Elective arthroplasty Hip, pelvis, or leg fracture Acute spinal cord injury (< 1 month) Prophylaxis Regimen: Total Risk Factor Score Risk Level Prophylaxis Regimen 0-1 Low Early ambulation 2 Moderate Order ONE of the following: *Sequential Compression Device (SCD) *Heparin 5000 units SQ BID 3-4 Higher Order ONE of the following medications: *Heparin 5000 units SQ TID *Enoxaparin/Lovenox 40 mg SQ daily (WT < 150 kg, CrCl > 30 mL/min) *Enoxaparin/Lovenox 30 mg SQ daily (WT < 150 kg, CrCl > 10-29 mL/min) *Enoxaparin/Lovenox 30 mg SQ BID (WT < 150 kg, CrCl > 30 mL/min) AND/OR *Sequential Compression Device (SCD) 5 or more Highest Order ONE of the following medications: *Heparin 5000 units SQ TID (Preferred with Epidurals) *Enoxaparin/Lovenox 40 mg SQ daily (WT < 150 kg, CrCl > 30 mL/min) *Enoxaparin/Lovenox 30 mg SQ daily (WT < 150 kg, CrCl > 10-29 mL/min) *Enoxaparin/Lovenox 30 mg SQ BID (WT < 150 kg, CrCl > 30 mL/min) AND *Sequential Compression Device (SCD) Assessment and Plan - Plan Ms. Brennan is a pleasant 83-year-old female with a history of COPD, atrial fibrillation, kidney stone who presents to the emergency department due to dizziness, slurred speech, word finding difficulties, confusion that started on 10/06/2018. Patient underwent lithotripsy on 10/06/2018 after which she started having some neurological deficits. Probable acute TIA -Patient apparently has Atrial fibrillation. -Patient follows with Dr. Urbina. Patient is on diltiazem as well as carvedilol for rate control -She is not on anticoagulation due to hematuria. Atrial fibrillation -Continue diltiazem as well as carvedilol. Patient's [id number] score is at least 5 She should be anticoagulated. However due to hematuria it may be difficult to start. History of seizure Continue Keppra 250 mg twice daily Hypertension -Will hold Losartan due to GABRIEL for now. -If needed, we will use Amlodipine. Acute kidney injury Creatinine 2.10. Last month her creatinine was below 1.0. Continue IV fluid. Recheck BMP in the morning. Full code. SCDs.
[2018-10-09 15:24] LABS: WBC,Urine 51-189 /hpf (0-5)
[2018-10-09 15:25] LABS: Amorphous Sediment,Urine Few /hpf; Bacteria,Urine Few /hpf; Calcium Oxalate Crystals,Urine Rare /hpf; Mucus,Urine Rare /lpf (Occasional); Squamous Epithelial Cell,Urine 0-5 /hpf (0-5)
[2018-10-09] MEDS: Sod Chloride 0.9% Inj 1,000 ML IV.CONT SCH ×2 (16:11→21:31)
--- NOTE | 2018-10-09 16:16 | US ---
EXAM DATE: 10/09/2018 3:57 PM EST AGE/SEX: 83 years / Female INDICATIONS: Slurred speech. Confusion. CLINICAL DATA: This is the patient's initial encounter. Patient reports that signs and symptoms have been present for 4 - 6 days and indicates a pain score of 6/10. MEDICAL/SURGICAL HISTORY: . Afib. COPD. Sleep apnea. Vertigo. Neck pain. Back pain. Appendecto my. Cholecystectomy. Hysterectomy. Lithotripsy. COMPARISON: No prior exams available for comparison. VELOCITY PARAMETERS: ICA/CCA Ratio: Right 0.5 , Left 0.9 ICA: Right 79 cm/sec, Left 72 cm/sec CCA: Right 169 cm/sec, Left 84 cm/sec ECA: Right 57 cm/sec, Left 71 cm/sec Vertebral: Right 31 cm/sec antegrade, Left 40 cm/sec antegrade FINDINGS: RIGHT CAROTID: There is no evidence for a hemodynamically significant carotid stenosis. Minimal int imal hyperplasia is present with scattered calcific plaque. LEFT CAROTID: There is no evidence for a hemodynamically significant carotid stenosis. Minimal inti mal hyperplasia is present with scattered calcific plaque. Flow is antegrade in both vertebral arteries. There are no ancillary masses or adenopathy. CONCLUSION: Negative examination for a hemodynamically significant carotid stenosis. Crow Norwood MD FACR Electronically signed by: Crow Norwood MD 10/09/2018 4:15 PM EST
--- NOTE | 2018-10-09 16:52 | MR ---
EXAM DATE: 10/09/2018 4:31 PM EST AGE/SEX: 83 years / Female INDICATIONS: . Dizziness with confusion. Left sided weakness. CLINICAL DATA: This is the patient's initial encounter. Patient reports that signs and symptoms have been present for 4 - 6 days and indicates a pain score of 0/10. MEDICAL/SURGICAL HISTORY: . COPD, CVA, A fib, CHRIS Hysterectomy. Appendectomy. Cholecystecto my. bilateral knee surgery, ureteral stent COMPARISON: No prior exams available for comparison. TECHNIQUE: Multiplanar, multisequence examination of the brain was performed without contrast. FINDINGS: Cerebrum: The ventricles are normal for age. No evidence of midline shift, mass lesion, hemorrhage or acute infarction. No extraaxial fluid collections are seen. The pituitary gland and suprasellar cistern are normal in configuration. White Matter: Minimal periventricular white matter changes. Posterior Fossa: The cerebellum and brainstem are intact. The 4th ventricle is midline. The cerebel lopontine angle is unremarkable. The cerebellar tonsils are normal in position. Diffusion Imaging: No focal areas of restricted diffusion are seen. No evidence of acute infarction . Extracranial: Opacification the right ethmoid and maxillary sinuses. CONCLUSION: 1. Minimal periventricular white matter changes, negative for acute ischemic event. Electronically signed by: Crow Norwood MD 10/09/2018 4:50 PM EST
--- NOTE | 2018-10-09 17:35 | MR ---
EXAM DATE: 10/09/2018 5:24 PM EST AGE/SEX: 83 years / Female INDICATIONS: Left sided weakness. CLINICAL DATA: This is the patient's initial encounter. Patient reports that signs and symptoms have been present for 4 - 6 days and indicates a pain score of 0/10. MEDICAL/SURGICAL HISTORY: None. COPD, CVA, GABRIEL, Afib Hysterectomy. Appendectomy. Cholecystec isaias. bilateral knees, ureteral stent COMPARISON: [facility], MR HEAD W/O CONTRAST, 10/09/2018. . TECHNIQUE: 3D [id number] MRA was performed. Source images, multiplanar STS MIP, and 3D volum e MIP reconstructions were reviewed. FINDINGS: There is excellent visualization of the major intracranial arteries out to the second-order branch ve ssels. There is no evidence for aneurysm, vessel truncation or stenosis, and no evidence for vascula r malformation. Origin of the right posterior cerebral artery is . CONCLUSION: No acute [place] vascular findings Electronically signed by: Gray Marroquin MD 10/09/2018 5:33 PM EST
--- NOTE | 2018-10-09 18:03 | MB ---
cc: Amada Gold MD DATE: 10/09/2018 REASON FOR CONSULTATION: Possible stroke, left-sided weakness. HISTORY OF PRESENT ILLNESS: This is an 83-year-old woman with a history of COPD, sleep apnea, atrial fibrillation, and kidney stones, who presents to the ER due to dizziness, left-sided weakness started 3 days ago on 10/06/2018. Had lithotripsy on Tuesday. Some slurred speech has been noted, dropping things, and confused. FAMILY HISTORY: Alzheimer's in an uncle. SOCIAL HISTORY: No tobacco or alcohol. PAST SURGICAL HISTORY: Bilateral knee, hysterectomy, and cholecystectomy. MEDICINE: She denies taking any aspirin. PHYSICAL EXAMINATION: VITAL SIGNS: Temperature is 98.1, pulse 76, respiratory rate 16, blood pressure 136/68, saturating at 98% on 2 liters nasal cannula. NECK: Supple. HEART: Regular. NEUROLOGIC: She is alert. Her speech is normal. Pupils reactive. Visual garcia full. Face symmetrical. Tongue midline. Overall, I do not appreciate any weakness in the left upper extremity. County Attorney are symmetrical. There is no drift. Left lower extremity, no leg lag. Toes withdraws. DTRs are 1+. Gait is withheld. LABORATORY DATA: Labs were reviewed. Hemoglobin 9.8, platelets 140,000. Coag panel is normal. Chemistry: Sodium 135. GFR is 23, calcium 8.1, glucose 127. CK 251. Urine 30 protein, 51-189 WBCs and clumps. Cultures pending. IMAGING: I did see the MRI in radiology, and I looked at the diffusion weighted imaging, and I did not see anything as far as an acute infarct. We will wait for the official report. A carotid ultrasound also shows nothing acute. I did have them do an MRI [place]. We will wait for that result. ASSESSMENT AND PLAN: An 83-year-old woman with some possible left-sided symptoms. There is some remote history noted of atrial fibrillation, not sure if she is on any type of anticoagulants at home. Certainly, if she does have paroxysmal atrial fibrillation, anticoagulation should be considered. She is on diltiazem and carvedilol for rate control. The hematuria is probably why anticoagulation is not being given. There is also some remote history of a seizure. She is on Keppra. We will go ahead and get an EEG. She needs to be on some type of anticoagulant or antiplatelet. At least baby aspirin should be considered. Get her out of bed with physical therapy. If workup is negative, certainly discharge planning. MD CARRILLO Sneed/em , 04:52 PM , 05:01 PM
[2018-10-09] MEDS: Gabapentin 300 MG Capsule PO SCH (18:43)
[2018-10-09] MEDS: Sertraline 100 MG Tablet PO SCH (21:28)
[2018-10-09] MEDS: traZODone 50 MG Tablet PO SCH (21:28)
[2018-10-09] MEDS: Carvedilol 6.25 MG Tablet PO SCH (21:30)
[2018-10-10] MEDS: Sod Chloride 0.9% Inj 1,000 ML IV.CONT SCH ×3 (04:05→22:27)
[2018-10-10 06:13] LABS: Potassium 3.3 meq/L (3.5-5.1)
[2018-10-10 06:17] LABS: Calcium 8.3 mg/dL (8.5-10.1)
[2018-10-10 06:18] LABS: Carbon Dioxide 26.9 meq/L (21.0-32.0)
[2018-10-10] MEDS: dilTIAZem CD 240 MG Capsule PO SCH (08:19)
[2018-10-10] MEDS: levETIRAcetam 250 MG Tablet PO SCH (08:19)
[2018-10-10] MEDS: Pantoprazole Sodium 20 MG DR Tablet PO SCH (08:19)
[2018-10-10] MEDS: Carvedilol 6.25 MG Tablet PO SCH ×2 (08:19→22:28)
[2018-10-10] MEDS: Ferrous Sulfate 325 MG Tablet PO SCH (08:19)
--- NOTE | 2018-10-10 13:59 | P.PNIM ---
Subjective Interval history: Patient is sitting upright in a chair. She does not have any current complaints. Patient appears to be confused. Physical Exam Vital signs: Vital Signs 10/09/18 13:55 10/09/18 15:12 10/09/18 16:00 Temperature 96.8 F L Pulse Rate 77 76 79 Respiratory Rate 20 16 18 Blood Pressure 123/69 136/68 140/65 Pulse Oximetry 90 L 98 97 10/09/18 20:00 10/10/18 00:00 10/10/18 04:00 Temperature 98.0 F 97.0 F L 97.1 F L Pulse Rate 80 77 72 Respiratory Rate 18 18 18 Blood Pressure 124/60 131/63 133/60 Pulse Oximetry 95 96 96 10/10/18 07:00 10/10/18 08:00 Temperature 98.1 F Pulse Rate 88 Respiratory Rate 20 Blood Pressure 167/89 H Pulse Oximetry 98 98 Intake & Output 10/09/18 10/10/18 10/10/18 18:59 06:59 18:59 Intake Total 161 / 161 480 / 480 120 / 120 Output Total 300 / 300 Balance 161 / 161 480 / 480 -180 / -180 Weight 92.9 kg 92.3 kg Intake: IV 161 / 161 NS Inj 1,000 ML @ 70 mls/hr IV. 161 / 161 CONT .[id number] [facility] Rx#: [id number] Oral 480 / 480 120 / 120 Output: Urine 300 / 300 Other: # Voids 5 # Bowel Movements 0 Weight On Admission 92.9 kg Narrative: General patient in no acute distress, she appears to be confused. HEENT extraocular movements are intact, clear oropharyngeal mucosa, no JVD Cardiovascular S1-S2 audible Respiratory clear to auscultation bilaterally Abdomen soft, nontender, nondistended, normal bowel sounds Extremities no edema 2+ distal pulses in bilateral upper and lower extremities Neuro patient moves all 4 extremities sensation is intact bilaterally. No slurred speech, no obvious neurological deficits on my examination. Results - Labs CBC & Chem 7: 10/09/18 12:38 10/10/18 05:50 Laboratory Results - last 24 hr 10/09/18 10/10/18 14:40 05:50 Sodium 138 Potassium 3.3 L Chloride 103 Carbon Dioxide 26.9 Anion Gap 8 BUN 25 H Creatinine 1.00 Estimated GFR 53 L Random Glucose 128 H Calcium 8.3 L Urine Color Yellow Urine Clarity Slightly cloudy Urine pH 5.5 Ur Specific [place] 1.020 Urine Protein 30 H Urine Glucose (UA) Negative Urine Ketones Negative Urine Occult Blood Large H Urine Nitrate Negative Urine Bilirubin Negative Urine Urobilinogen 0.2 Ur Leukocyte Esterase Moderate H Urine RBC 15-50 H Urine WBC 51-189 H Urine WBC Clumps Few H Ur Squamous Epith Cells 0-5 Calcium Oxalate Crystal Rare H Amorphous Sediment Few H Urine Bacteria Few H Urine Mucus Rare H Micro UA Comment Culture indicated Ur Microscopic Review Microscopic reviewed Urine Culture Comments Culture indicated - Imaging Impressions Carotid Doppler Study 10/09/18 00:00 CONCLUSION: Negative examination for a hemodynamically significant carotid stenosis. Crow Norwood MD FACR Head MRI 10/09/18 00:00 CONCLUSION: 1. Minimal periventricular white matter changes, negative for acute ischemic event. Head MRA 10/09/18 00:00 CONCLUSION: No acute [place] vascular findings Assessment and Plan - Plan This patient is a 83-year-old female with a diagnosis of COPD, sleep apnea, atrial fibrillation, recent kidney stones status post lithotripsy a few days ago. The patient presented with complaints of dizziness, she was found to be confused, and had some left-sided weakness that started on 10/06/2018. Because of the confusion and the concern for a possible stroke she was brought in for evaluation. 1. Questionable TIA 2. Acute encephalopathy likely secondary to UTI As per dog mentation the patient presents with left-sided weakness as well as confusion. On my physical examination the patient does not have any left-sided weakness today, her symptoms appear to have resolved. Aspirin, statin will be started today. Imaging of the head including MRI and MRA did not show any evidence of infarctions. Urinalysis is consistent with a UTI, patient was started on ciprofloxacin today. I will continue monitor the patient's mental status. 3. Atrial fibrillation As per dog mentation the patient has a history of atrial fibrillation, rate is controlled with diltiazem. Patient has an elevated chads score however currently as the patient is confused I am unable to discuss anticoagulation with the patient. Continue aspirin. As per documentation the patient also has some hematuria. Hemoglobin is currently stable around 9.8. I will follow-up a.m. labs. Plan will be discussed with the patient's nurse. 4. History of seizures Continue Nickolasra 5. Acute kidney injury likely prerenal Patient serum creatinine has improved to 1.0 from 2.1. No pharmacotherapy for DVT prophylaxis as the patient has hematuria.
[2018-10-10] MEDS: Ciprofloxacin 400 MG/200 ML 400 MG/200 ML PIGGYBACK IV.SIG SCH (14:50)
--- NOTE | 2018-10-10 15:14 | ECG ---
Date Performed: 10/09/2018 Time Performed: 12:29:13 PTAGE: 83 years EKG: Sinus rhythm NONSPECIFIC T-WAVE ABNORMALITY BORDERLINE ECG Compared to PREVIOUS TRACING , the patient is no longer tachycardic. PREVIOUS TRACIN02/18/2017 20. 32 DOCTOR: Nkechi Urbina Interpretating Date/Time 10/10/2018 15:13:34
[2018-10-10] MEDS: Gabapentin 300 MG Capsule PO SCH (17:41)
--- NOTE | 2018-10-10 21:29 | MG ---
cc: Mark Salinas MD DESCRIPTION: A 4-5 Hz posterior rhythm with occasional 1-2 Hz delta activity occurring at 20-50 microvolts. Background incremented up to 5-6 Hz. Bifrontal transient, epoch 82. Good EEG variability and reactivity. Reduced driving with photic stimulation. Single-lead EKG showing sinus rhythm. INTERPRETATION: Mild encephalopathy in sleep state. Clinical correlation. MD JERONIMO King/maldonado , 08:48 PM , 08:54 PM
[2018-10-10] MEDS: Sertraline 100 MG Tablet PO SCH (22:28)
[2018-10-10] MEDS: traZODone 50 MG Tablet PO SCH (22:28)
[2018-10-11] MEDS: Ciprofloxacin 400 MG/200 ML 400 MG/200 ML PIGGYBACK IV.SIG SCH ×2 (03:29→15:53)
[2018-10-11] MEDS: Sod Chloride 0.9% Inj 1,000 ML IV.CONT SCH ×3 (04:00→19:00)
[2018-10-11] MEDS: Carvedilol 6.25 MG Tablet PO SCH ×2 (09:54→21:16)
[2018-10-11] MEDS: Pantoprazole Sodium 20 MG DR Tablet PO SCH (09:54)
[2018-10-11] MEDS: dilTIAZem CD 240 MG Capsule PO SCH (09:54)
[2018-10-11] MEDS: Ferrous Sulfate 325 MG Tablet PO SCH (09:54)
[2018-10-11] MEDS: levETIRAcetam 250 MG Tablet PO SCH (09:55)
--- NOTE | 2018-10-11 16:20 | P.PNIM ---
Subjective Interval history: Patient is sitting upright in bed with her daughter at bedside. She does not have any physical complaints today. Patient was telling me a story about how the nursing staff took her downstairs and covered her with towels a few days ago. Physical Exam Vital signs: Vital Signs 10/10/18 20:00 10/11/18 00:00 10/11/18 04:00 Temperature 98.6 F 97.3 F L 97.0 F L Pulse Rate 80 68 77 Respiratory Rate 18 18 Blood Pressure 149/67 H 133/61 131/63 Pulse Oximetry 95 100 96 10/11/18 08:00 10/11/18 12:00 Temperature 98.0 F 98.4 F Pulse Rate 70 67 Respiratory Rate 22 22 Blood Pressure 183/80 H 173/78 H Pulse Oximetry 94 L 97 Intake & Output 10/10/18 10/11/18 10/11/18 18:59 06:59 18:59 Intake Total 800 / 800 1680 / 1680 1000 / 1000 Output Total 800 / 800 Balance 0 / 0 1680 / 1680 1000 / 1000 Intake: IV 200 / 200 1200 / 1200 1000 / 1000 NS Inj 1,000 ML @ 84 mls/hr IV. 1000 / 1000 1000 / 1000 CONT .[id number] [facility] Rx#: [id number] Cipro 400 MG/200 ML Inj 400 mg 200 / 200 200 / 200 In 200 ml @ 200 mls/hr IV.SIG Q12H [facility] Rx#:[id number] Oral 600 / 600 480 / 480 Output: Urine 800 / 800 Other: # Voids 5 Date of Last Bowel Movement 10/10/18 Narrative: General patient in no acute distress, she is currently alert and oriented x3. HEENT extraocular movements are intact, clear oropharyngeal mucosa, no JVD Cardiovascular S1-S2 audible Respiratory clear to auscultation bilaterally Abdomen soft, nontender, nondistended, normal bowel sounds Extremities no edema 2+ distal pulses in bilateral upper and lower extremities Neuro patient moves all 4 extremities sensation is intact bilaterally. No slurred speech, no obvious neurological deficits on my examination. Results - Labs CBC & Chem 7: 10/09/18 12:38 10/10/18 05:50 Microbiology 10/09/18 14:40 Clean Catch Urine Urine Culture - Final <10,000 cfu/mL mixed gram positive robert - no further workup Assessment and Plan - Plan This patient is a 83-year-old female with a diagnosis of COPD, sleep apnea, atrial fibrillation, recent kidney stones status post lithotripsy a few days ago. The patient presented with complaints of dizziness, she was found to be confused, and had some left-sided weakness that started on 10/06/2018. Because of the confusion and the concern for a possible stroke she was brought in for evaluation. 1. Questionable TIA 2. Acute encephalopathy likely secondary to UTI As per dog mentation the patient presents with left-sided weakness as well as confusion. On my physical examination the patient does not have any left-sided weakness today, her symptoms appear to have resolved. Aspirin, statin were started yesterday. Continue current meds. Imaging of the head including MRI and MRA did not show any evidence of infarctions. Urinalysis is consistent with a UTI, patient was started on ciprofloxacin yesterday. Continue antibiotics. The patient's UTI is possibly contributing to the patient's acute encephalopathy. On my examination today patient was telling the story about how the nursing staff took her downstairs and covered her with towels and took multiple blood draws to find out why she was altered. She also asked me if I was looking for "the master" when I entered the room. I will consult psychiatry to evaluate the patient as she may have an underlying psychiatric disorder. I will continue monitor the patient's mental status. 3. Atrial fibrillation As per dog mentation the patient has a history of atrial fibrillation, rate is controlled with diltiazem. Patient has an elevated chads score however the patient's daughter and the patient did not want to be on anticoagulation because she says she had problems with bleeding on it in the past. The risks and benefits of anti-correlation were discussed with the patient however as of now she is refusing anti- correlation. As per documentation the patient also has some hematuria. Hemoglobin is currently stable around 9.8. I will follow-up a.m. labs. Plan will be discussed with the patient's nurse. 4. History of seizures Continue Keppra. 5. Acute kidney injury likely prerenal Acute kidney injury has resolved. Serum creatinine is 1.0 as of yesterday. 6. Hypertension Continue Coreg, and diltiazem. Norvasc will be started to the patient's medication regimen. No pharmacotherapy for DVT prophylaxis as the patient has hematuria.
[2018-10-11] MEDS: Gabapentin 300 MG Capsule PO SCH (18:56)
[2018-10-11] MEDS: amLODIPine 5 MG Tablet PO SCH (18:56)
[2018-10-11] MEDS: Sertraline 100 MG Tablet PO SCH (21:16)
[2018-10-11] MEDS: traZODone 50 MG Tablet PO SCH (21:16)
[2018-10-12] MEDS: Sod Chloride 0.9% Inj 1,000 ML IV.CONT SCH ×3 (03:17→22:00)
[2018-10-12] MEDS: Ciprofloxacin 400 MG/200 ML 400 MG/200 ML PIGGYBACK IV.SIG SCH ×2 (03:23→16:23)
[2018-10-12 06:35] LABS: Baso % (Auto) 0.3 % (0.0-2.0); Eos # (Auto) 0.2 th/mm3 (0.0-0.4); Eos % (Auto) 2.9 % (0.0-4.0); Hematocrit 24.2 % (35.0-46.0); Hemoglobin 8.5 gm/dL (11.6-15.3); Lymph % (Auto) 17.5 % (9.0-44.0); Mean Corpuscular Hemoglobin 29.3 pg (27.0-34.0); Mean Corpuscular Volume 83.9 fL (80.0-100.0); Mean Platelet Volume 7.3 fL (7.0-11.0); Mono # (Auto) 0.4 th/mm3 (0.0-0.9); Mono % (Auto) 7.6 % (0.0-8.0); Neut # (Auto) 4.3 th/mm3 (1.8-7.7); Neut % (Auto) 71.7 % (16.0-70.0); Platelet Count 140 th/mm3 (150-450); Red Blood Count 2.89 mil/mm3 (4.00-5.30); Red Cell Distribution Width 13.6 % (11.6-17.2); White Blood Count 5.9 th/mm3 (4.0-11.0)
[2018-10-12 06:39] LABS: Chloride 107 meq/L (98-107); Potassium 3.2 meq/L (3.5-5.1); Sodium 143 meq/L (136-145)
[2018-10-12 06:42] LABS: Anion Gap 7 meq/L (5-15); Calcium 7.6 mg/dL (8.5-10.1); Carbon Dioxide 28.6 meq/L (21.0-32.0); Glucose,Random 157 mg/dL (74-106); Magnesium 1.5 mg/dL (1.5-2.5)
[2018-10-12 06:52] LABS: Blood Urea Nitrogen 12 mg/dL (7-18); Glomerular Filtration Rate Greater Than 89 mL/min (>89)
[2018-10-12] MEDS: dilTIAZem CD 240 MG Capsule PO SCH (08:38)
[2018-10-12] MEDS: Ferrous Sulfate 325 MG Tablet PO SCH (08:38)
[2018-10-12] MEDS: levETIRAcetam 250 MG Tablet PO SCH (08:38)
[2018-10-12] MEDS: Pantoprazole Sodium 20 MG DR Tablet PO SCH (08:38)
[2018-10-12] MEDS: Carvedilol 6.25 MG Tablet PO SCH ×2 (08:38→21:53)
[2018-10-12] MEDS: amLODIPine 5 MG Tablet PO SCH (08:38)
[2018-10-12] MEDS ORDERED: Magnesium Sulfate Inj 2 GM in Sodium Chlor 0.9% Inj 96 ML IV.SIG ONE ×2 (12:03→17:00)
[2018-10-12] MEDS ORDERED: amLODIPine 5 MG Tablet PO SCH (12:04)
--- NOTE | 2018-10-12 12:12 | P.DCO ---
- Physical Therapy Order: Evaluate and treat - Home Health Nursing Order: Medical education, Nursing assessment with vital signs - Case Management Consult Case Management Consult-Home Health: Yes - Certification I have seen patient Eric Brennan on 10/12/18. My clinical findings support the need for the requested home health care services because: Limited ability to care for self, High risk of falls I certify that my clinical findings support that this patient is homebound because: Unsafe to leave home unassisted
[2018-10-12] MEDS: Mag Sulf 1 gm/100 ml Premix 100 ML IV.SIG SCH ×2 (13:37→14:57)
--- NOTE | 2018-10-12 14:04 | P.CONPSY ---
Provisional Diagnosis Admission Date: October 09, 2018 14:50 [place] I.: Adjustment disorder with depressed mood, delirium secondary to UTI, history of depression History of Present Illness Service: ER Primary Care Provider: Art Figueroa MD Chief Complaint: Dizziness, left arm weakness, confusion. History of Present Illness: The patient is a 83-year-old woman, domiciled in [place] with her daughter, , mother of 5 kids, supported by Social Security, with a psychiatric history of depression, no previous psychiatric hospitalizations, no previous suicide attempts, she is on Zoloft 100 mg daily, trazodone 100 mg at bedtime, with a significant medical history of COPD, sleep apnea, atrial fibrillation, recent kidney stones status post lithotripsy a few days ago. The patient presented with complaints of dizziness, she was found to be confused, and had some left-sided weakness that started on 10/06/2018. Because of the confusion and the concern for a possible stroke she was brought in for evaluation. Was admitted with Questionable TIA vs Acute encephalopathy likely secondary to UTI. As per daughter changes in mentation the patient presents with left-sided weakness as well as confusion. but in initial ER physical examination the patient does not have any left-sided weakness today, her symptoms appear to have resolved. Imaging of the head inclA did not show any acute changes. The patient was consulted to psychiatry to address depression name confusion. On my psychiatric evaluation today the patient is calm, cooperative, very pleasant. The patient reports that she feels much better today. She says that she has been more emotional and depressed in the last year , with moments of being more depressed or even being happy, after her . She says that her of a chronic illness, and he did have a period of deterioration "so I was ready, is that did not take me as a surprise and I am very sure that he is in a better place". She reports that she feels that she has too many reasons to live for, and she feels she is in need a person by her kids, and she can still help them and be useful in many ways. But she reports that at times she feels like giving up, especially when she deteriorates medically. She denies hopelessness, she denies helplessness, she denies worthlessness, she denies suicidal ideation, she denies homicidal ideation. She denies visual and auditory hallucinations. The patient is now fully oriented x3, no attention deficit, no fluctuation of consciousness present. The patient is logical, coherent, goal directed. She says that she enjoys watching TV, but in the last months she is no enjoying this activity that much because she is getting easily tired. PPHx: SHe has depression, no previous psychiatric hospitalizations, no previous suicide attempts, she is on Zoloft 100 mg daily, trazodone 100 mg at bedtime, PMHx:with a significant medical history of COPD, sleep apnea, atrial fibrillation, recent kidney stones status post lithotripsy a few days ago Substance Hx: Denies the use of illegal drugs or alcohol Family Hx: She has a brother with PTSD Social Hx: She was born and raised in [place], she lives in [place] with her daughter, she is , mother of 5 kids, supported by her benefits and Social Security Review of Systems All other systems reviewed negative except as stated in HPI Psychiatric: Reports depression PMFSH - History History Provided By: Patient - Medical History Medical History: Medical History (Last Reviewed 10/10/18 @ 08:05 by John Sanderson) Afib COPD (chronic obstructive pulmonary disease) H/O: hysterectomy History of back pain History of neck pain Sleep apnea Vertigo - Surgical History Surgical History: Surgical History (Last Reviewed 10/10/18 @ 08:06 by John Sanderson) History of appendectomy History of cholecystectomy - Tobacco History Second Hand Smoke Exposure: No Tobacco Use In Past 30 Days: No Smoking Status: Former smoker Tobacco Type: Cigarettes - Alcohol History How Often Do You Have a Drink Containing Alcohol: Never - Substance Use History Substance History: No History of Abuse - Travel History Recent Travel in the [place] Within the Last 8 Weeks: No Recent Travel Out of the Country Within the Last 8 Weeks: No - Immunization History Tetanus Immunization: Unsure Hx Influenza Vaccine This Season: No Medications and Allergies Active Medications: Active Medications Acetaminophen (Tylenol) 650 mg PO Q4H PRN PRN Reason: Headache, fever, pain 1-4 Al Hydroxide/Mg Hydroxide (Milk Of Magnesia Liq) 30 ml PO Q12H PRN PRN Reason: Mild Constipation Amlodipine Besylate (Norvasc) 10 mg PO DAILY [facility] Aspirin (Aspirin Chew) 81 mg PO DAILY [facility] Last Admin: 10/12/18 08:38 Dose: 81 mg Atorvastatin Calcium (Lipitor) 40 mg PO HS [facility] Last Admin: 10/11/18 21:16 Dose: 40 mg Bisacodyl (Dulcolax Supp) 10 mg RECTAL DAILY PRN PRN Reason: SEVERE CONSITIPATION Carvedilol (Coreg) 6.25 mg PO BID [facility] Last Admin: 10/12/18 08:38 Dose: 6.25 mg Diltiazem HCl (Cardizem Cd 24hr) 240 mg PO DAILY [facility] Last Admin: 10/12/18 08:38 Dose: 240 mg Ferrous Sulfate (Ferosul) 325 mg PO DAILY [facility] Last Admin: 10/12/18 08:38 Dose: 325 mg Gabapentin (Neurontin) 300 mg PO QPM [facility] Last Admin: 10/11/18 18:56 Dose: 300 mg Sodium Chloride (Ns Inj) 1,000 mls @ 84 mls/hr IV.CONT .[id number] [facility] Last Admin: 10/12/18 08:37 Dose: 84 mls/hr Ciprofloxacin/Dextrose (Cipro 400 Mg/200 Ml Inj) 400 mg in 200 mls @ 200 mls/ hr IV.SIG Q12H [facility] Last Infusion: 10/12/18 05:11 Dose: Infused Magnesium Sulfate/Dextrose (Magnesium Sulfate 1 Gm/D5w 100 Ml Premix) 100 mls @ 100 mls/hr IV.SIG Q2H [facility] Stop: 10/12/18 15:59 Lactulose (Lactulose Liq) 30 ml PO DAILY PRN PRN Reason: SEVERE CONSITIPATION Levetiracetam (Keppra) 250 mg PO DAILY [facility] Last Admin: 10/12/18 08:38 Dose: 250 mg Pantoprazole Sodium (Protonix) 20 mg PO DAILY [facility] Last Admin: 10/12/18 08:38 Dose: 20 mg Sennosides (Senokot) 17.2 mg PO Q12H PRN PRN Reason: Moderate Constipation Sertraline HCl (Zoloft) 100 mg PO [facility] Last Admin: 10/11/18 21:16 Dose: 100 mg Sodium Chloride (Ns Flush) 2 ml IV.FLUSH PRN PRN PRN Reason: FLUSH AFTER USING IV ACCESS Trazodone HCl (Desyrel) 50 mg PO HS [facility] Last Admin: 10/11/18 21:16 Dose: 50 mg Allergies Allergy/AdvReac Type Severity Reaction Status Date / Time Influenza Virus Vaccines Allergy Severe Swelling Verified 10/09/18 11:44 adhesive Allergy Intermediate RASH Verified 10/09/18 11:44 erythromycin base Allergy Intermediate Rash Verified 10/09/18 11:44 metronidazole Allergy Intermediate RASH Verified 10/09/18 11:44 penicillin G Allergy Intermediate Vomiting Verified 10/09/18 11:44 Sulfa (Sulfonamide Allergy Intermediate Rash Verified 10/09/18 11:44 Antibiotics) Home Medications Medication Instructions Recorded Confirmed Type carvedilol 6.25 mg PO BID 10/09/18 10/09/18 History diltiazem HCl 240 mg PO BID 10/09/18 10/09/18 History ferrous sulfate 324 mg PO DAILY 10/09/18 10/09/18 History gabapentin 300 mg PO QPM 10/09/18 10/09/18 History hydrochlorothiazide 25 mg PO DAILY 10/09/18 10/09/18 History levetiracetam 250 mg PO DAILY 10/09/18 10/09/18 History losartan 100 mg PO DAILY 10/09/18 10/09/18 History omeprazole 20 mg PO DAILY 10/09/18 10/09/18 History potassium chloride 10 meq PO DAILY 10/09/18 10/09/18 History sertraline 100 mg PO HS 10/09/18 10/09/18 History trazodone 50 mg PO HS 10/09/18 10/09/18 History Exam Vital signs: Vital Signs 10/11/18 16:00 10/11/18 20:00 10/12/18 00:00 Temperature 98.5 F 97 F L 98 F Pulse Rate 63 66 64 Respiratory Rate 22 20 20 Blood Pressure 155/69 H 147/69 H 173/69 H Pulse Oximetry 93 L 96 97 10/12/18 04:00 10/12/18 08:00 10/12/18 12:00 Temperature 97.2 F L 97.9 F 96.3 F L Pulse Rate 72 68 64 Respiratory Rate 20 20 20 Blood Pressure 143/67 H 143/64 H 152/68 H Pulse Oximetry 95 94 L 94 L Intake & Output 10/11/18 10/12/18 10/12/18 18:59 06:59 18:59 Intake Total 1650 / 1650 1520 / 1520 1000 / 1000 Balance 1650 / 1650 1520 / 1520 1000 / 1000 Weight 94.1 kg Intake: IV 1000 / 1000 1400 / 1400 1000 / 1000 NS Inj 1,000 ML @ 84 mls/hr IV. 1000 / 1000 1000 / 1000 1000 / 1000 CONT .[id number] [facility] Rx#: [id number] Cipro 400 MG/200 ML Inj 400 mg 400 / 400 In 200 ml @ 200 mls/hr IV.SIG Q12H [facility] Rx#:[id number] Oral 650 / 650 120 / 120 Other: # Voids 4 2 # Bowel Movements 1 0 Narrative: No agitation, no psychomotor retardation, no EPS, no withdrawal symptoms, no catatonia - Constitutional no acute distress - Routine HEENT Exam Head: Present: normocephalic, atraumatic Eye: Present: EOMI, PERRL Mental Status Examination Appearance: Appropriate Consciousness: Alert Orientation: x4 Motor Activity: Normal gait Speech: Unremarkable Language: Adequate Fund of Knowledge: Adequate Attention and Concentration: Adequate Memory: Unremarkable Mood: Appropriate Affect: Appropriate Thought Process & Associations: Intact Thought Content: Appropriate Hallucination Type: None Delusion Type: None Suicidal Ideation: No Suicidal Plan: No Suicidal Intention: No Homicidal Ideation: No Homicidal Plan: No Homicidal Intention: No Insight: Adequate Judgment: Adequate Assessment and Plan - Assessment (1) Adjustment disorder with depressed mood Code(s): F43.21 - Adjustment disorder with depressed mood Status: Acute - Plan Plan: On my psychiatric evaluation today the patient is calm, cooperative, pleasant. The patient reports that she has been feeling more depressed than usual, especially during this hospitalization as she has been feeling medically deteriorated. She also reports that since her a year ago she has been having increased moments of sadness, difficulty sleeping at night, but she denies hopelessness, denies helplessness, denies anhedonia, denies suicidal and homicidal ideation, denies visual and auditory hallucinations. The patient has been on Zoloft 100 mg, trazodone 100 mg with good response, no significant side effects. The patient presented confused, with altered mental status during the initial presentation in the ER, but at this moment she is fully oriented x3, without fluctuation of consciousness, no attention deficit. She does not meet criteria for involuntary psychiatric admission at this moment. I will increase the trazodone to 100 mg. Continue Zoloft 100 mg. Extensive support, motivational psychoeducation provided. Patient can continue psychiatric care as an outpatient. Consult appreciated. Justification for Continued Inpatient Stay: No admission is indicated at this time
--- NOTE | 2018-10-12 16:12 | P.DS ---
Date of admission: 10/09/18 14:50 Primary care physician: Art Figueroa MD Brief History from admission: Ms. Brennan is a pleasant 83-year-old female with a history of COPD, sleep apnea, atrial fibrillation, kidney stone who presents to the emergency department due to dizziness, confusion, left-sided weakness that started on 10/06. Patient underwent lithotripsy on 10/06/2018. Since then she has been experiencing slurred speech, confusion and dizziness. Patient was admitted as there was a concern for an acute stroke. DS: Medications - Discharge Medications Prescriptions: trazodone 100 mg PO HS #30 tab DS: Summary Hospital Course: This patient is a 83-year-old female with a diagnosis of COPD, sleep apnea, atrial fibrillation, recent kidney stones status post lithotripsy a few days ago. The patient presented with complaints of dizziness, she was found to be confused, and had some left-sided weakness that started on 10/06/2018. Because of the confusion and the concern for a possible stroke she was brought in for evaluation. 1. Acute encephalopathy resolved The patient presented initially with complaints of dizziness as well as left- sided weakness. She has a history of atrial fibrillation and initially there was a concern that the patient may be having a stroke. The patient underwent imaging of the head including MRI, MRA which not show any evidence of infarctions. CT head was negative. Neurology evaluated the patient and recommended an EEG which showed mild encephalopathy and sleep state. No other significant findings. Patient takes Keppra at home. The patient's urinalysis was positive for UTI however culture was negative. The patient did receive 3 days of IV antibiotics while in house. After couple days the patient's encephalopathy resolved. She is currently alert and oriented x3. And in no acute distress. I did have psychiatry evaluate the patient who recommended increasing her trazodone to 100 mg p.o. daily. Patient is currently stable and will be discharged home with home health. 2. Atrial fibrillation The patient has a diagnosis of atrial fibrillation. She has an elevated chads score. She was restarted on aspirin while in-house. Anticoagulation was discussed with the patient and the patient's daughter who was at bedside. They do not want to start anticoagulation. They do understand the risks and the benefits of being on anticoagulation however at this time they do not want to start anticoagulation. Heart rate currently under control continue current rate control medications. I recommend that when she follows up with her primary care doctor her hemoglobin be checked as area over the past 1 week. The hematuria appeared to be resolving while inpatient. 3. Recent kidney stones status post lithotripsy a few days ago. The patient can continue to follow-up with her primary care doctor within 1 week. She should also continue to follow-up with urology outpatient. Patient will be discharged home today. She was evaluated by physical therapy who recommends that the patient continue to use a wheeled walker at home. 4. Acute kidney injury likely secondary to dehydration and diuretic use. 5. Hypertension Acute kidney injury was likely secondary to dehydration and diuretic use. On discharge the diuretic will be discontinued. Acute kidney injury has resolved and losartan will be restarted on discharge starting was held and the patient was admitted. Her primary care doctor could continue to monitor her renal function and adjust her antihypertensives as needed. - Time Spent with Patient Total time spent providing and/or coordinating discharge services: Greater than 30 minutes - Quality: VTE Deep Vein Thrombosis/Pulmonary Embolism Present on Admission: No Exam Vital signs: Vital Signs 10/11/18 16:00 10/11/18 20:00 10/12/18 00:00 Temperature 98.5 F 97 F L 98 F Pulse Rate 63 66 64 Respiratory Rate 22 20 20 Blood Pressure 155/69 H 147/69 H 173/69 H Pulse Oximetry 93 L 96 97 10/12/18 04:00 10/12/18 08:00 10/12/18 12:00 Temperature 97.2 F L 97.9 F 96.3 F L Pulse Rate 72 68 64 Respiratory Rate 20 20 20 Blood Pressure 143/67 H 143/64 H 152/68 H Pulse Oximetry 95 94 L 94 L Intake & Output 10/11/18 10/12/18 10/12/18 18:59 06:59 18:59 Intake Total 1650 / 1650 1520 / 1520 1100 / 1100 Balance 1650 / 1650 1520 / 1520 1100 / 1100 Weight 94.1 kg Intake: IV 1000 / 1000 1400 / 1400 1100 / 1100 NS Inj 1,000 ML @ 84 mls/hr IV. 1000 / 1000 1000 / 1000 1000 / 1000 CONT .[id number] [facility] Rx#: [id number] Cipro 400 MG/200 ML Inj 400 mg 400 / 400 In 200 ml @ 200 mls/hr IV.SIG Q12H [facility] Rx#:[id number] Magnesium Sulfate 1 gm/D5W 100 100 / 100 ml Premix 100 ML @ 100 mls/hr IV.SIG Q2H [facility] Rx#:[id number] Oral 650 / 650 120 / 120 Other: # Voids 4 2 # Bowel Movements 1 0 Narrative: General patient in no acute distress HEENT extraocular movements are intact, clear oropharyngeal mucosa, no JVD Cardiovascular S1-S2 audible Respiratory clear to auscultation bilaterally Abdomen soft, nontender, nondistended, normal bowel sounds Extremities no edema 2+ distal pulses in bilateral upper and lower extremities Neuro cranial nerves II through XII intact Results Procedures completed during hospitalization: None Labs on day of discharge: Labs from last 24 hours 10/12/18 10/12/18 05:53 05:53 CBC w Diff Auto diff final WBC 5.9 RBC 2.89 L Hgb 8.5 L Hct 24.2 L MCV 83.9 MCH 29.3 MCHC 35.0 RDW 13.6 Plt Count 140 L MPV 7.3 Neut % (Auto) 71.7 H Lymph % (Auto) 17.5 [place] % (Auto) 7.6 Eos % (Auto) 2.9 Baso % (Auto) 0.3 Neut # (Auto) 4.3 Lymph # (Auto) 1.0 [place] # (Auto) 0.4 Eos # (Auto) 0.2 Baso # (Auto) 0.0 WBC Differential . Differential Comment . Sodium 143 Potassium 3.2 L Chloride 107 Carbon Dioxide 28.6 Anion Gap 7 BUN 12 Creatinine 0.63 Estimated GFR Greater than 89 Random Glucose 157 H Calcium 7.6 L Magnesium 1.5 - Impressions ITS Impressions Carotid Doppler Study 10/09/18 00:00 CONCLUSION: Negative examination for a hemodynamically significant carotid stenosis. Crow Norwood MD FACR Head MRI 10/09/18 00:00 CONCLUSION: 1. Minimal periventricular white matter changes, negative for acute ischemic event. Head MRA 10/09/18 00:00 CONCLUSION: No acute [place] vascular findings Chest X-Ray 10/09/18 12:12 CONCLUSION: No acute disease Head CT 10/09/18 12:12 CONCLUSION: 1. Negative for an acute process. There is no significant atrophy . Discharge Plan - Discharge Disposition Patient Disposition: Disch W/Home Health Service - Discharge Condition Condition: Stable - Discharge Order Discharge Orders: Discharge Order (Routine); Ordered 10/12/18 Ordered By: Karin Lyon - Physicians Team Primary Care Provider: Art Figueroa Attending Provider: Krain Lyon Other Providers: Amada Gold MD ; Mehdi Quesada MD ; [facility]
[2018-10-12] MEDS: Gabapentin 300 MG Capsule PO SCH (17:38)
[2018-10-12] MEDS: traZODone 50 MG Tablet PO SCH (21:53)
[2018-10-12] MEDS: Sertraline 100 MG Tablet PO SCH (21:54)
[2018-10-13] MEDS: Ciprofloxacin 400 MG/200 ML 400 MG/200 ML PIGGYBACK IV.SIG SCH (03:38)
[2018-10-13] MEDS: Sod Chloride 0.9% Inj 1,000 ML IV.CONT SCH (06:52)
[2018-10-13 08:49] VITALS: TEMP 97.5; O2SAT 96
--- NOTE | 2018-10-13 09:53 | P.PNIM ---
Subjective Interval history: Patient is in no acute distress. She is awake alert responding to my questions and commands appropriately. She says she is looking forward to going home. Physical Exam Vital signs: Vital Signs 10/12/18 12:00 10/12/18 16:00 10/12/18 20:00 Temperature 96.3 F L 97.6 F 96.9 F L Pulse Rate 80 63 70 Respiratory Rate 20 20 20 Blood Pressure 152/68 H 140/67 162/72 H Pulse Oximetry 94 L 96 98 10/13/18 00:00 10/13/18 04:00 10/13/18 08:00 Temperature 96 F L 98.5 F 97.5 F L Pulse Rate 70 66 85 Respiratory Rate 20 20 20 Blood Pressure 147/70 H 164/78 H 187/107 H Pulse Oximetry 94 L 95 96 Intake & Output 10/12/18 10/13/18 10/13/18 18:59 06:59 18:59 Intake Total 1880 / 1880 2120 / 2120 Balance 1880 / 1880 2120 / 2120 Weight 96.3 kg Intake: IV 1400 / 1400 2000 / 2000 NS Inj 1,000 ML @ 84 mls/hr IV. 1000 / 1000 1700 / 1700 CONT .[id number] [facility] Rx#: [id number] Cipro 400 MG/200 ML Inj 400 mg 200 / 200 200 / 200 In 200 ml @ 200 mls/hr IV.SIG Q12H [facility] Rx#:[id number] Magnesium Sulfate 1 gm/D5W 100 200 / 200 ml Premix 100 ML @ 100 mls/hr IV.SIG Q2H [facility] Rx#:[id number] Magnesium Sulfate Inj 2 GM In 100 / 100 NS Inj 96 ML @ 50 mls/hr IV.SIG ONCE ONE Rx#:[id number] Oral 480 / 480 120 / 120 Other: # Voids 3 3 Date of Last Bowel Movement 10/12/18 Narrative: General patient in no acute distress HEENT extraocular movements are intact, clear oropharyngeal mucosa, no JVD Cardiovascular S1-S2 audible Respiratory clear to auscultation bilaterally Abdomen soft, nontender, nondistended, normal bowel sounds Extremities no edema 2+ distal pulses in bilateral upper and lower extremities Neuro cranial nerves II through XII intact Results - Labs CBC & Chem 7: 10/12/18 05:53 10/12/18 05:53 - Procedures None Assessment and Plan - Plan This patient is a 83-year-old female with a diagnosis of COPD, sleep apnea, atrial fibrillation, recent kidney stones status post lithotripsy a few days ago. The patient presented with complaints of dizziness, she was found to be confused, and had some left-sided weakness that started on 10/06/2018. Because of the confusion and the concern for a possible stroke she was brought in for evaluation. Patient was evaluated today. She is currently alert and oriented x3 and is not any acute distress. Patient was scheduled to be discharged yesterday however she was not picked up by her daughter last night. No change the patient's current mental status. Please see discharge summary below for patient's recommendations on discharge. There is no change in the patient's plan of care. She will be discharged home today. 1. Acute encephalopathy resolved The patient presented initially with complaints of dizziness as well as left- sided weakness. She has a history of atrial fibrillation and initially there was a concern that the patient may be having a stroke. The patient underwent imaging of the head including MRI, MRA which not show any evidence of infarctions. CT head was negative. Neurology evaluated the patient and recommended an EEG which showed mild encephalopathy and sleep state. No other significant findings. Patient takes Keppra at home. The patient's urinalysis was positive for UTI however culture was negative. The patient did receive 3 days of IV antibiotics while in house. After couple days the patient's encephalopathy resolved. She is currently alert and oriented x3. And in no acute distress. I did have psychiatry evaluate the patient who recommended increasing her trazodone to 100 mg p.o. daily. Patient is currently stable and will be discharged home with home health. 2. Atrial fibrillation The patient has a diagnosis of atrial fibrillation. She has an elevated chads score. She was restarted on aspirin while in-house. Anticoagulation was discussed with the patient and the patient's daughter who was at bedside. They do not want to start anticoagulation. They do understand the risks and the benefits of being on anticoagulation however at this time they do not want to start anticoagulation. Heart rate currently under control continue current rate control medications. I recommend that when she follows up with her primary care doctor her hemoglobin be checked as area over the past 1 week. The hematuria appeared to be resolving while inpatient. 3. Recent kidney stones status post lithotripsy a few days ago. The patient can continue to follow-up with her primary care doctor within 1 week. She should also continue to follow-up with urology outpatient. Patient will be discharged home today. She was evaluated by physical therapy who recommends that the patient continue to use a wheeled walker at home. 4. Acute kidney injury likely secondary to dehydration and diuretic use. 5. Hypertension Acute kidney injury was likely secondary to dehydration and diuretic use. On discharge the diuretic will be discontinued. Acute kidney injury has resolved and losartan will be restarted on discharge starting was held and the patient was admitted. Her primary care doctor could continue to monitor her renal function and adjust her antihypertensives as needed.
[2018-10-13] MEDS: dilTIAZem CD 240 MG Capsule PO SCH (09:56)
[2018-10-13] MEDS: levETIRAcetam 250 MG Tablet PO SCH (09:57)
[2018-10-13] MEDS: Carvedilol 6.25 MG Tablet PO SCH (09:57)
[2018-10-13] MEDS: Ferrous Sulfate 325 MG Tablet PO SCH (09:57)
[2018-10-13] MEDS: Pantoprazole Sodium 20 MG DR Tablet PO SCH (09:57)
[2018-10-13 13:04] VITALS: BP 137/69; PULSE 74; RESP 18
== END 2018-10-13 10:32 | disposition home health service (06) ==
LOC: PHED 11:35 → INTOOBSV 14:50 → PHEDA 14:50 → PH3 16:30
PROVIDERS: ADMIT Hospitalist; ATTEND Hospitalist
DX: Z79.899 Other long term (current) drug therapy; N39.0 Urinary tract infection, site not specified; Z87.891 Personal history of nicotine dependence; J32.2 Chronic ethmoidal sinusitis; J44.9 Chronic obstructive pulmonary disease, unspecified; J32.0 Chronic maxillary sinusitis; F43.21 Adjustment disorder with depressed mood; G47.30 Sleep apnea, unspecified; I48.91 Unspecified atrial fibrillation; I10 Essential (primary) hypertension; N17.9 Acute kidney failure, unspecified; G93.40 Encephalopathy, unspecified